=== PATIENT | female | born 1930 | race Hispanic/Latino ===

== ENCOUNTER 2017-01-22 11:35 | Emergency (ER) | payer MEDICARE ==
[2017-01-22 11:40] VITALS: BMI 26.5
[2017-01-22 12:44] LABS: BASO % 0.1 % (0.0-2.0); EOS # 2.4 K/uL (0.0-0.7); EOS % 13.1 % (0.0-4.0); HEMATOCRIT 31.2 % (34.0-47.0); LYMPH # 1.1 K/uL (1.0-4.3); LYMPH % 5.9 % (20.0-40.0); MEAN CELL VOLUME 64.5 fL (81.0-99.0); MEAN CORPUSCULAR HGB CONC 30.9 g/dL (33.0-37.0); MONO % 5.2 % (0.0-10.0); PLATELET COUNT 364 K/uL (130-400); RED CELL DISTRIBUTION WIDTH 15.2 % (11.5-14.5); WHITE BLOOD COUNT 18.7 K/uL (4.8-10.8)
[2017-01-22 13:09] LABS: CHLORIDE 103 mmol/L (98-107); POTASSIUM 4.1 mmol/L (3.6-5.2); SODIUM 140 mmol/L (132-148)
[2017-01-22 13:11] LABS: GFR AFRICAN-AMERICAN > 60
[2017-01-22 13:12] LABS: ALB/GLOB RATIO 1.3 (1.0-2.1); ALKALINE PHOSPHATASE 70 U/L (38-126); ALT/SGPT 63 U/L (9-52); AST/SGOT 205 U/L (14-36); BILIRUBIN,TOTAL 2.7 mg/dL (0.2-1.3); BLOOD UREA NITROGEN 33 mg/dL (7-17); CARBON DIOXIDE 21 mmol/L (22-30); GLUCOSE,RANDOM 133 mg/dL (65-105); TOTAL PROTEIN 8.2 g/dL (6.3-8.3)
[2017-01-22 13:13] LABS: CALCIUM 8.9 mg/dl (8.6-10.4)
--- NOTE | 2017-01-22 13:13 | C.PDOC ---
History Of Present Illness The patient, an 86 y/o female, presents to the ED accompanied by family for evaluation after sustaining a fall 2 days ago. As per family, patient fell at home and landed on her bilateral knees. Patient was unable to get up and began crawling which resulted in a rug burn on her bilateral buttocks. Patient resides in the same two-family home as her family, but lives on one of the floors alone. Her family states that patient had underwent a couple falls earlier this week and has bruising to her elbows bilaterally. Patient as per family is her baseline mental status. Patient denies LOC, head injury. - HPI Time Seen by Provider: 01/22/17 11:56 Chief Complaint (Nursing): Trauma History Per: Patient History/Exam Limitations: no limitations Onset/Duration Of Symptoms: Hrs Severity: Mild Recent travel outside of the [place]: No Additional History Per: Patient - Fall Fall:Prior To Injury: Tripped Past Medical History Reviewed: Historical Data, Nursing Documentation, Vital Signs Vital Signs: Last Vital Signs Temp 98.4 F 01/22/17 17:20 Pulse 84 01/22/17 17:20 Resp 18 01/22/17 17:20 BP 171/90 H 01/22/17 17:20 Pulse Ox 98 01/22/17 17:44 - Medical History PMH: Gall Bladder Disease, HTN Surgical History: No Surg Hx Family History: States: Unknown Family Hx - Social History Hx Alcohol Use: No Hx Substance Use: No - Immunization History Hx Tetanus Toxoid Vaccination: No Hx Influenza Vaccination: No Hx Pneumococcal Vaccination: No Review Of Systems Except As Marked, All Systems Reviewed And Found Negative. Constitutional: Negative for: Fever Genitourinary: Negative for: Dysuria Musculoskeletal: Positive for: Other (+ b/l knee pain ) Neurological: Negative for: Weakness, Dizziness Physical Exam - Physical Exam Appears: Non-toxic, No Acute Distress Skin: Warm, Dry, Ecchymosis (knees and elbows, bilaterally ), Other (+rug martinez to bilateral buttocks) Head: Atraumatic, Normacephalic, No Tenderness, No Swelling, No Abrasion, No Laceration Eye(s): bilateral: Normal Inspection, PERRL, EOMI Oral Mucosa: Moist Neck: Supple Chest: Symmetrical, No Deformity, No Tenderness Cardiovascular: Rhythm Regular, No Murmur Respiratory: Normal Breath Sounds, No Rales, No Rhonchi, No Wheezing Gastrointestinal/Abdominal: Soft, No Tenderness, No Guarding, No Rebound Back: Normal Inspection, No Vertebral Tenderness, No Paraspinal Tenderness Extremity: Normal ROM, Tenderness (b/l knees), Capillary Refill (less than 2 seconds ), No Deformity, No Swelling Pulses: Left Dorsalis Pedis: Normal, Right Dorsalis Pedis: Normal Neurological/Psych: Normal Speech, Normal Cognition, Normal Motor, Other (+ slightly confused, no focal deficits ) Gait: Unable To Assess ED Course And Treatment - Laboratory Results Result Diagrams: 01/22/17 12:40 01/22/17 12:40 Lab Interpretation: Abnormal ECG: Interpreted By Me ECG Rhythm: Sinus Rhythm ECG Interpretation: No Acute Changes Rate From EC O2 Sat by Pulse Oximetry: 98 Pulse Ox Interpretation: Normal - Other Rad No standard instances X-Ray: Viewed By Me Interpretation: FINDINGS: LIVER: Measures 18.7 cm in length. Normal echogenicity of the liver parenchyma. No mass. No intrahepatic bile duct dilatation. GALLBLADDER: Multiple gallstones are seen. Normal gallbladder wall thickening. COMMON BILE DUCT: Measures 4 mm. No stones. No dilatation. PANCREAS: Unremarkable as visualized. No mass. No ductal dilatation. RIGHT KIDNEY: Measures 9.1 x 4 x 4.4 cm in length. Normal echogenicity. No calculus, mass, or hydronephrosis. Small cyst is seen at the lower pole right kidney measures 1 centimeter. AORTA: No aneurysmal dilatation. IVC: Unremarkable. OTHER FINDINGS: None . IMPRESSION: Multiple gallstones without ultrasound evidence of acute cholecystitis. Otherwise no evidence of acute pathology in the right upper abdomen. knee XR X-Ray: Interpreted by Me, Viewed By Me, Read By Radiologist Interpretation: Accession No. : [id number]. Patient Name / ID : WAQAR SANTOS / [id number]. Exam Date : 01/22/2017 12:27:17 ( Approved ). Study Comment : Sex / Age : F / 86Y. Creator : DREW GREENBERG. Dictator : Stepan Benitez MD. Die Baker : Pharmacy Messenger : Stepan Benitez MD. Approver2 : Report Date : 01/22/2017 13:12:36. My Comment : . PROCEDURE: Bilateral Knee Radiographs. HISTORY: fall. COMPARISON: None. FINDINGS: BONES: Right Knee: Normal. No fracture. Left Knee: Normal. No fracture. JOINTS: Right Knee: Narrowed medial joint compartment consistent with osteoarthritis. . Mild marginal hypertrophy of lateral and patellofemoral compartments consistent with osteoarthritis as well. Left knee: Narrowed medial joint compartment consistent with osteoarthritis. . Mild marginal hypertrophy of lateral and patellofemoral compartments consistent with osteoarthritis as well. SOFT TISSUES: Right Knee: Normal. Left Knee: Normal. JOINT EFFUSION: Right Knee: None. Left Knee: None. OTHER FINDINGS: None. 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 No acute fracture. CXR X-Ray: Interpreted by Me, Viewed By Me, Read By Radiologist Interpretation: Accession No. : [id number]. Patient Name / ID : WAQAR SANTOS / [id number]. Exam Date : 01/22/2017 12:27:05 ( Approved ). Study Comment : Sex / Age : F / 86Y. Creator : DREW GREENBERG. Dictator : Stepan Benitez MD. Die Baker : Pharmacy Messenger : Stepan Benitez MD. Approver2 : Report Date : 01/22/2017 13:12:36. My Comment : . PROCEDURE: CHEST RADIOGRAPH, 1 VIEW. HISTORY: SOB. COMPARISON: None available. FINDINGS: LUNGS: Clear. PLEURA: No pneumothorax or pleural fluid seen. CARDIOVASCULAR : Normal. OSSEOUS STRUCTURES: No significant abnormalities. VISUALIZED UPPER ABDOMEN: Normal. OTHER FINDINGS: None. IMPRESSION: No active disease. - CT Scan/US No standard instances Other Rad Studies (CT/US): Interpreted By Me, Read By Radiologist CT/US Interpretation: FINDINGS: HEMORRHAGE: No intracranial hemorrhage. BRAIN : No mass effect or edema. Moderate the atrophy is noted. Moderate to extensive white matter changes are also noted suggestive but nonspecific for chronic microvascular ischemic disease. VENTRICLES: Unremarkable. No hydrocephalus. CALVARIUM: Unremarkable. PARANASAL SINUSES: Uijo-tt-evznumna mucosal thickening seen in the right sphenoid sinus. MASTOID AIR CELLS: Unremarkable as visualized. No inflammatory changes. OTHER FINDINGS: None. IMPRESSION: No evidence of acute or subacute intracranial hemorrhage. Moderate atrophy and moderate to extensive white matter changes suggestive but nonspecific for chronic microvascular ischemic disease. Scry-[id number]-[id number] right sphenoid sinus mucosal thickening. Progress Note: labs, CT Head, CXR, XR b/l knees, US Abdomen ordered and reviewed. Patient did not take her B/P meds today. Treated with keflex 500 mg PO and losartin 25 mg PO. On re-evaluation abdomen soft. Ambulating. Patient request discharge and refuses admission. will follow up with PMD for further evaluation Reassessment Condition: Improved Disposition Counseled Patient/Family Regarding: Studies Performed, Diagnosis, Need For Followup, Rx Given - Disposition Referrals: Deepak Vines MD [Medical Doctor] - Disposition: HOME/ ROUTINE Disposition Time: 17:00 Condition: STABLE Additional Instructions: Follow up with Dr Vines Return to ED if any increase symptoms Prescriptions: Cephalexin [cephalexin] 500 mg PO Q8 #21 cap Instructions: Knee Sprain (ED), Urinary Tract Infection in Women (ED), Fall Prevention for Older Adults (ED) - POA Present On Arrival: None - Clinical Impression Clinical Impression: Sprain, Contusion, UTI (urinary tract infection) - PA / EXPRESSIVE ART THERAPIST / Resident Statement MD/DO has reviewed & agrees with the documentation as recorded. - Scribe Statement The provider has reviewed the documentation as recorded by the Scribe (Tigist Blakely) All medical record entries made by the Scribe were at my direction and personally dictated by me. I have reviewed the chart and agree that the record accurately reflects my personal performance of the history, physical exam, medical decision making, and the department course for this patient. I have also personally directed, reviewed, and agree with the discharge instructions and disposition.
[2017-01-22 13:25] LABS: NEUTROPHIL 82 % (50-75); TOTAL CELLS COUNTED 100
[2017-01-22 13:27] LABS: LARGE PLATELETS PRESENT
--- NOTE | 2017-01-22 13:33 | CT ---
PROCEDURE: CT HEAD WITHOUT CONTRAST. HISTORY: R/O Bleed COMPARISON: None available. TECHNIQUE: Axial computed tomography images were obtained through the head/brain without intravenous contrast. Radiation dose: Total exam DLP = 869.49 mGy-cm. This CT exam was performed using one or more of the following dose reduction techniques: Automated exposure control, adjustment of the mA and/or kV according to patient size, and/or use of iterative reconstruction technique. FINDINGS: HEMORRHAGE: No intracranial hemorrhage. BRAIN: No mass effect or edema. Moderate the atrophy is noted. Moderate to extensive white matter changes are also noted suggestive but nonspecific for chronic microvascular ischemic disease. VENTRICLES: Unremarkable. No hydrocephalus. CALVARIUM: Unremarkable. PARANASAL SINUSES: Nanc-ev-zbhuhpsy mucosal thickening seen in the right sphenoid sinus. MASTOID AIR CELLS: Unremarkable as visualized. No inflammatory changes. OTHER FINDINGS: None. IMPRESSION: No evidence of acute or subacute intracranial hemorrhage. Moderate atrophy and moderate to extensive white matter changes suggestive but nonspecific for chronic microvascular ischemic disease. [id number] right sphenoid sinus mucosal thickening.
--- NOTE | 2017-01-22 14:18 | US ---
HISTORY: Pain COMPARISON: None. TECHNIQUE: Sonographic evaluation of the right upper quadrant of the abdomen. FINDINGS: LIVER: Measures 18.7 cm in length. Normal echogenicity of the liver parenchyma. No mass. No intrahepatic bile duct dilatation. GALLBLADDER: Multiple gallstones are seen. Normal gallbladder wall thickening. COMMON BILE DUCT: Measures 4 mm. No stones. No dilatation. PANCREAS: Unremarkable as visualized. No mass. No ductal dilatation. RIGHT KIDNEY: Measures 9.1 x 4 x 4.4 cm in length. Normal echogenicity. No calculus, mass, or hydronephrosis. Small cyst is seen at the lower pole right kidney measures 1 centimeter. AORTA: No aneurysmal dilatation. IVC: Unremarkable. OTHER FINDINGS: None . IMPRESSION: Multiple gallstones without ultrasound evidence of acute cholecystitis. Otherwise no evidence of acute pathology in the right upper abdomen.
--- NOTE | 2017-01-22 14:44 | RAD ---
PROCEDURE: CHEST RADIOGRAPH, 1 VIEW HISTORY: SOB COMPARISON: None available. FINDINGS: LUNGS: Clear. PLEURA: No pneumothorax or pleural fluid seen. CARDIOVASCULAR: Normal. OSSEOUS STRUCTURES: No significant abnormalities. VISUALIZED UPPER ABDOMEN: Normal. OTHER FINDINGS: None. IMPRESSION: No active disease.
--- NOTE | 2017-01-22 14:46 | RAD ---
PROCEDURE: Bilateral Knee Radiographs. HISTORY: fall COMPARISON: None. FINDINGS: BONES: Right Knee: Normal. No fracture. Left Knee: Normal. No fracture. JOINTS: Right Knee: Narrowed medial joint compartment consistent with osteoarthritis. . Mild marginal hypertrophy of lateral and patellofemoral compartments consistent with osteoarthritis as well. Left knee: Narrowed medial joint compartment consistent with osteoarthritis. . Mild marginal hypertrophy of lateral and patellofemoral compartments consistent with osteoarthritis as well. SOFT TISSUES: Right Knee: Normal. Left Knee: Normal. JOINT EFFUSION: Right Knee: None. Left Knee: None. OTHER FINDINGS: None. 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 No acute fracture.
[2017-01-22 15:09] LABS: RBC URINE 38 /hpf (0-3); URINE BACTERIA RARE (<OCC); URINE BILIRUBIN NEGATIVE (NEGATIVE); URINE BLOOD 3+ (NEGATIVE); URINE COLOR Yellow (YELLOW); URINE GLUCOSE (UA) NORMAL (Normal); URINE KETONE 1+ mg/dL (NEGATIVE); URINE LEUKOCYTE ESTERASE 3+ Leu/uL (Negative); URINE PROTEIN 2+ mg/dL (NEGATIVE); URINE UROBILINOGEN NORMAL mg/dL (0.2-1.0); WBC URINE 63 /hpf (0-5)
[2017-01-22] MEDS ORDERED: ceFAZolin IV 1 gm in Dextrose 1 GM/50 ML BAG IVPB ONE (15:51)
[2017-01-22] MEDS ORDERED: ceFAZolin 1 gm FROZEN Premix 1 GM/50 ML ML IVPB ONE (16:15)
[2017-01-22 17:20] VITALS: BP 171/90; PULSE 84; RESP 18; TEMP 98.4
[2017-01-22 17:48] VITALS: O2SAT 98
--- NOTE | 2017-01-23 16:46 | CARD ---
APPROVED REPORT EKG Measurement Heart [id number] MN [id number] [id number] <Conclusion> Normal sinus rhythm Prolonged QT Abnormal ECG
== END 2017-01-22 17:47 | disposition home or self-care (01) ==
LOC: C.ER 11:35
DX: S83.90XA Sprain of unspecified site of unspecified knee, initial encounter (principal); W18.30XA Fall on same level, unspecified, initial encounter; Z91.81 History of falling; Y92.019 Unspecified place in single-family (private) house as the place of occurrence of the external cause; N39.0 Urinary tract infection, site not specified
CPT/HCPCS: 70450; 71010; 73562; 76705; 80053; 81001; 85025; 93005; 96374; 99285; J0690

== ENCOUNTER 2017-07-01 18:31 | Inpatient (IN) | payer MEDICARE ==
[2017-07-01 18:31] VITALS: BMI 26.5
[2017-07-01] MEDS ORDERED: Sodium Chloride 0.9% 1,000 ML IV ONE (19:16)
--- NOTE | 2017-07-01 19:16 | C.PDOC ---
History Of Present Illness Patient presents to the ER after having a syncopal episode, SOB, and experiencing some weight loss. As per family member, patient has been having frequent falls and has had worsening dizziness over the last 3 weeks. Patient is currently in distress and denies fever, chills, Hx of falling, or feeling dizzy. Time Seen by Provider: 07/01/17 19:14 Chief Complaint (Nursing): Syncope History Per: Patient, Family History/Exam Limitations: no limitations Onset/Duration Of Symptoms: Days Current Symptoms Are (Timing): Still Present Number Of Syncopal Episodes: 1 Activity At Onset Of Symptoms: Had Just Stood up, Other (Not known) Associated Symptoms Preceding Syncopal Episode: No Predromal Symptoms (Sudden Onset) Seizure Or Post-ictal Symptoms: None Fall Associated With With Symptoms: No Severity: Moderate Pain Scale Rating Of: 4 Recent travel outside of the [place]: No Additional History Per: Family - Symptoms Of CVA Associated Symptoms: denies: Impaired Speech, Seizure Activity, New Vision Deficit(Left), New Vision Deficit(Right), Decreased Ability To Walk, New Confusion Recent Aspirin Use: No Current Coumadin Use?: No Recent Head Trauma: No Past Medical History Reviewed: Historical Data, Nursing Documentation, Vital Signs Vital Signs: Last Vital Signs Temp 97.7 F 07/01/17 18:37 Pulse 74 07/01/17 20:34 Resp 14 07/01/17 20:34 BP 154/77 H 07/01/17 20:34 Pulse Ox 100 07/01/17 21:00 - Medical History PMH: Gall Bladder Disease, HTN Surgical History: No Surg Hx Family History: States: No Known Family Hx - Social History Hx Alcohol Use: No Hx Substance Use: No - Immunization History Hx Tetanus Toxoid Vaccination: No Hx Influenza Vaccination: No Hx Pneumococcal Vaccination: No Review Of Systems Constitutional: Negative for: Fever, Chills Eyes: Negative for: Vision Change Cardiovascular: Negative for: Chest Pain Respiratory: Positive for: Shortness of Breath Gastrointestinal: Negative for: Nausea, Vomiting, Abdominal Pain Genitourinary: Negative for: Dysuria Musculoskeletal: Negative for: Back Pain Skin: Negative for: Rash Neurological: Positive for: Other (Syncope). Negative for: Dizziness Psych: Negative for: Anxiety Physical Exam - Physical Exam Appears: Non-toxic, No Acute Distress Skin: Warm, Dry Head: Normacephalic Eye(s): bilateral: Conjunctiva Pale Oral Mucosa: Moist Neck: Trachea Midline, Supple Chest: Symmetrical Cardiovascular: Rhythm Regular Respiratory: No Rales, No Rhonchi, No Wheezing Gastrointestinal/Abdominal: Soft, No Tenderness Back: No CVA Tenderness Extremity: Normal ROM Extremity: Bilateral: Atraumatic, Normal Color And Temperature Pulses: Left Dorsalis Pedis: Normal, Right Dorsalis Pedis: Normal Neurological/Psych: Oriented x3, Normal Speech, Normal Cognition Gait: Unsteady ED Course And Treatment - Laboratory Results Result Diagrams: 07/01/17 19:25 07/01/17 19:25 ECG: Interpreted By Me, Viewed By Me ECG Rhythm: Sinus Rhythm (75), Nonspecific Changes (tessy) O2 Sat by Pulse Oximetry: 100 (Room air) Pulse Ox Interpretation: Normal - Radiology CXR: Interpreted by Me, Viewed By Me CXR Interpretation: No: Infiltrates, Fracture, Pnemothorax Progress Note: EKG, blood work, CXR, urinalysis, and CT head ordered. IV fluids administered. Disposition Discussed With : Suzi Carter Comment: accepted the pt on her service and took over the care at 9:19 PM Doctor Will See Patient In The: Hospital Counseled Patient/Family Regarding: Studies Performed, Diagnosis - Disposition Disposition: HOSPITALIZED Disposition Time: 19:16 Condition: FAIR Forms: [facility] (Korean) - POA Present On Arrival: Poor Glycemic Control - Clinical Impression Clinical Impression: Dizziness, Syncope, UTI (urinary tract infection), Thrombocytosis - Scribe Statement The provider has reviewed the documentation as recorded by the Scribdusty Escudero All medical record entries made by the Raffyibe were at my direction and personally dictated by me. I have reviewed the chart and agree that the record accurately reflects my personal performance of the history, physical exam, medical decision making, and the department course for this patient. I have also personally directed, reviewed, and agree with the discharge instructions and disposition. Decision To Admit - Pt Status Changed To: Hospital Disposition Of: Inpatient - Admit Certification Admit to Inpatient:: After my assessment, the patient will require hospitalization for at least two midnights. This is because of the severity of symptoms shown, intensity of services needed, and/or the medical risk in this patient being treated as an outpatient. - InPatient: Physician Admission Certification: I certify that this patient requires 2 or more midnights of care for the following reason:: After my assessment, the patient will require hospitalization for at least two midnights. This is because of the severity of symptoms shown, intensity of services needed, and/or the medical risk in this patient being treated as an outpatient. - . Bed Request Type: Telemetry Admitting Physician: Suzi Carter Patient Diagnosis: Dizziness, Syncope, UTI (urinary tract infection), Thrombocytosis
[2017-07-01 19:30] LABS: BASO # 0.1 K/uL (0.0-0.2); BASO % 0.5 % (0.0-2.0); HEMATOCRIT 30.1 % (34.0-47.0); LYMPH # 1.2 K/uL (1.0-4.3); LYMPH % 7.1 % (20.0-40.0); MEAN CORPUSCULAR HGB CONC 30.7 g/dL (33.0-37.0); MEAN PLATELET VOLUME 7.4 fL (7.2-11.7); MONO # 0.9 K/uL (0.0-0.8); MONO % 5.5 % (0.0-10.0); PLATELET COUNT 508 K/uL (130-400); RED CELL DISTRIBUTION WIDTH 16.2 % (11.5-14.5); WHITE BLOOD COUNT 16.3 K/uL (4.8-10.8)
[2017-07-01 19:34] LABS: MEAN CELL VOLUME 61.8 fL (81.0-99.0)
[2017-07-01 19:36] LABS: CHLORIDE 103 mmol/L (98-107); INR 1.1
[2017-07-01 19:37] LABS: POTASSIUM 3.9 mmol/L (3.6-5.2); SODIUM 138 mmol/L (132-148)
[2017-07-01 19:39] LABS: ALB/GLOB RATIO 0.8 (1.0-2.1); ALKALINE PHOSPHATASE 91 U/L (38-126); AST/SGOT 25 U/L (14-36); BILIRUBIN,TOTAL 0.8 mg/dL (0.2-1.3); BLOOD UREA NITROGEN 27 mg/dL (7-17); CARBON DIOXIDE 23 mmol/L (22-30); GFR AFRICAN-AMERICAN > 60; TOTAL PROTEIN 8.5 g/dL (6.3-8.3)
[2017-07-01 19:40] LABS: ALT/SGPT 38 U/L (9-52); CALCIUM 9.5 mg/dl (8.6-10.4); GLUCOSE,RANDOM 111 mg/dL (65-105)
[2017-07-01 20:18] LABS: RBC URINE 43 /hpf (0-3); TRANSITIONAL EPITHIAL 1 /hpf (0-3); URINE BACTERIA MOD (<OCC); URINE BILIRUBIN NEGATIVE (NEGATIVE); URINE COLOR Amber (YELLOW); URINE GLUCOSE (UA) 1+ mg/dL (Normal); URINE HYALINE CAST >20 /lpf (0-2); URINE KETONE 1+ mg/dL (NEGATIVE); URINE PROTEIN 2+ mg/dL (NEGATIVE); WBC CLUMPS FEW /hpf; WBC URINE 13 /hpf (0-5)
[2017-07-01 20:20] LABS: URINE BLOOD 3+ (NEGATIVE); URINE LEUKOCYTE ESTERASE 1+ Leu/uL (Negative)
--- NOTE | 2017-07-01 20:22 | CT ---
EXAM: CT Head Without Intravenous Contrast EXAM DATE/TIME: 07/01/2017 7:16 PM CLINICAL HISTORY: 87 years old, female; Signs and symptoms; Altered mental status/memory loss and syncope and collapse TECHNIQUE: Axial computed tomography images of the head/brain without intravenous contrast. All CT scans at this facility use one or more dose reduction techniques, viz.: automated exposure control; ma/kV adjustment per patient size (including targeted exams where dose is matched to indication; i.e. head); or iterative reconstruction technique. Coronal and sagittal reformatted images were created and reviewed. COMPARISON: Prior images are not available for review. FINDINGS: Brain: There is dilatation of sulci gyri and ventricles. There is no midline shift. There is decreased attenuation in periventricular white matter. There are no focal masses. 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 There is smaller age indeterminate basal ganglia lacunar infarcts bilaterally. There are small calcifications in both basal ganglia. There are no focal hemorrhages. Russ-white differentiation is visualized. Ventricles: See above Bones: Cranial vault is intact. Soft tissues: unremarkable Sinuses: There is no acute sinusitis. Ears and mastoids: Middle ears and mastoids are unremarkable. Orbits: Orbital contents are unremarkable. IMPRESSION: Atrophy and small vessel disease; age indeterminate lacunar infarcts in the basal ganglia; no bleed
[2017-07-01] MEDS ORDERED: cefTRIAXone IV 1 gm in Dextros 50 ML IVPB ONE ×2 (20:27→20:39)
[2017-07-01 21:56] LABS: NEUTROPHIL 89 % (50-75); TOTAL CELLS COUNTED 100
[2017-07-02] MEDS ORDERED: Iohexol 240 (50 ml) PO ONE (00:15)
[2017-07-02] MEDS: Dextrose 5%/0.45% NS 1,000 ML IV SCH ×2 (00:30→18:11)
--- NOTE | 2017-07-02 03:03 | CT ---
EXAM: CT Abdomen and Pelvis Without Intravenous Contrast CLINICAL HISTORY: 87 years old, female; Pain; Abdominal pain; Additional info: Abdominal distention TECHNIQUE: Axial computed tomography images of the abdomen and pelvis without intravenous contrast. All CT scans at this facility use one or more dose reduction techniques, viz.: automated exposure control; ma/kV adjustment per patient size (including targeted exams where dose is matched to indication; i.e. head); or iterative reconstruction technique. Coronal and sagittal reformatted images were created and reviewed. COMPARISON: None. FINDINGS: Lower thorax: Bibasilar atelectasis, right greater than left. ABDOMEN: Liver: The liver is enlarged. Gallbladder and bile ducts: Layering stones within the gallbladder, which is otherwise unremarkable. No intra-extrahepatic biliary ductal dilation. Pancreas: Limited evaluation secondary to the lack of intravenous contrast. Spleen: A 6 cm rounded area of decreased attenuation is identified within the upper anterior margin of the spleen, statistically a splenic cyst. Adrenals: No acute findings. Kidneys and ureters: 8 mm nonobstructing stone within the upper pole of the left kidney. No obstructing stones. No hydronephrosis. PELVIS: Bladder: No acute findings. Reproductive: The uterus is absent. Appendix: The appendix is of normal caliber (series 2, image 62). ABDOMEN and PELVIS: Stomach and bowel: A nonobstructing bowel containing parastomal hernia within the left mid to lower abdomen. Mural thickening within the rectum. Peritoneum: No acute findings. Lymph nodes: Limited evaluation without intravenous contrast. Vasculature: No aortic aneurysm. Calcified atherosclerotic disease. Bones: No acute fracture. IMPRESSION: No obstructive uropathy. Nonobstructing left renal calculus. 6 cm splenic cyst. Parastomal hernia. Mural thickening within the rectum, for which direct visualization is recommended. Cholelithiasis.
--- NOTE | 2017-07-02 07:28 | RAD ---
PROCEDURE: CHEST RADIOGRAPH, 1 VIEW HISTORY: chest pain COMPARISON: Frontal chest radiograph 01/22/2017. FINDINGS: LUNGS: No acute infiltrate is appreciated bilaterally. PLEURA: No pneumothorax or pleural fluid seen. Potential left paratracheal lymph node calcification or granuloma noted or even thyroid calcification. CARDIOVASCULAR: Cardiomediastinal silhouette is stable. No pulmonary vascular derangement identified. OSSEOUS STRUCTURES: No significant abnormalities. VISUALIZED UPPER ABDOMEN: Normal. OTHER FINDINGS: None. IMPRESSION: No interval acute cardiopulmonary disease appreciated.
[2017-07-02] MEDS ORDERED: Enoxaparin 40 mg Syringe SC SCH (10:00)
--- NOTE | 2017-07-02 10:53 | CP.PCM.PN ---
Subjective - Date & Time of Evaluation Date of Evaluation: 07/02/17 - Subjective Subjective: H&P dictated #[id number] Objective - Vital Signs/Intake and Output Vital Signs (last 24 hours): Temp Pulse Resp BP Pulse Ox 97.7 F 64 20 147/77 98 07/02/17 07:30 07/02/17 07:30 07/02/17 07:30 07/02/17 07:30 07/02/17 07:30 Intake and Output: 07/02/17 07/02/17 06:59 18:59 Intake Total 720 Balance 720 - Medications Medications: Current Medications Dextrose/Sodium Chloride (Dextrose 5%/0.45% Ns 1000 Ml) 1,000 mls @ 60 mls/hr IV .[id number] Last Admin: 07/02/17 00:30 Dose: 60 mls/hr Losartan Potassium (Cozaar) 25 mg PO DAILY [facility] Pneumococcal Polyvalent Vaccine (Pneumovax 23 Vaccine) 0.5 ml IM .ONCE ONE Stop: 07/04/17 10:01 - Labs Labs: 07/01/17 19:25 07/01/17 19:25 PT 12.7 SECONDS (9.7-12.2) H 07/01/17 19:25 INR 1.1 07/01/17 19:25
[2017-07-02 11:17] LABS: BASO # 0.1 K/uL (0.0-0.2); BASO % 0.6 % (0.0-2.0); EOS # 0.1 K/uL (0.0-0.7); EOS % 0.6 % (0.0-4.0); HEMATOCRIT 25.8 % (34.0-47.0); LYMPH # 1.8 K/uL (1.0-4.3); LYMPH % 17.6 % (20.0-40.0); MEAN CELL VOLUME 62.5 fL (81.0-99.0); MEAN CORPUSCULAR HEMOGLOBIN 19.7 pg (27.0-31.0); MEAN CORPUSCULAR HGB CONC 31.5 g/dL (33.0-37.0); MEAN PLATELET VOLUME 7.6 fL (7.2-11.7); MONO # 0.7 K/uL (0.0-0.8); MONO % 6.8 % (0.0-10.0); NRBC % 0.1 % (0.0-2.0); RED CELL DISTRIBUTION WIDTH 15.7 % (11.5-14.5)
[2017-07-02 11:33] LABS: CHLORIDE 103 mmol/L (98-107); POTASSIUM 3.7 mmol/L (3.6-5.2); SODIUM 137 mmol/L (132-148)
[2017-07-02 11:34] LABS: IRON 45 ug/dL (37-170)
[2017-07-02 11:35] LABS: ALB/GLOB RATIO 0.7 (1.0-2.1); AST/SGOT 29 U/L (14-36); BILIRUBIN,TOTAL 0.6 mg/dL (0.2-1.3); BLOOD UREA NITROGEN 22 mg/dL (7-17); CARBON DIOXIDE 27 mmol/L (22-30); CHOLESTEROL 125 mg/dL (0-199); GFR AFRICAN-AMERICAN > 60; TOTAL PROTEIN 7.3 g/dL (6.3-8.3)
[2017-07-02 11:36] LABS: ALKALINE PHOSPHATASE 67 U/L (38-126); ALT/SGPT 28 U/L (9-52); CALCIUM 8.7 mg/dl (8.6-10.4); GLUCOSE,RANDOM 119 mg/dL (65-105)
--- NOTE | 2017-07-02 13:36 | CARD ---
APPROVED REPORT EKG Measurement Heart [id number] NM 134P69 [id number] <Conclusion> Normal sinus rhythm with sinus arrhythmia Right atrial enlargement Moderate voltage criteria for LVH, may be normal variant Borderline ECG
--- NOTE | 2017-07-02 20:53 | HP ---
CHIEF COMPLAINT: Frequent falls with worsening dizziness over the past few weeks. HISTORY OF PRESENT ILLNESS: The patient is an 87-year-old female with past medical history of hypertension, questionable gallbladder disease, status post abdominal surgery with colostomy, who has been following up with Dr. Laith Vines, primary care physician, for many years, who has seen the patient recently, and the patient's sister, Ina, spoke to Dr. Laith Vines regarding her medical condition and for possible rehab placement as per the patient's sister, but the patient had fall on Friday. Denied any loss of consciousness but claiming that she may have felt dizzy and her legs giving way, and she just lied down on her back, did not hit her head. After fall, she was crawling on the carpet, which scraped her skin of the buttocks on earlier episodes, and the patient was evaluated in the ED. She was brought into the emergency room for further evaluation of her recurrent falls and dizziness. Her sister claims that she refused to come to the hospital over the weekend after the fall claiming that she was not ready to come to the hospital. When I examined the patient, she is confused, but oriented to time, person, and able to answer to questions appropriately. Denied any headache, dizziness. Denied any chest pain, shortness of breath, or wheezing. Denied any nausea, vomiting, abdominal pain, diarrhea or constipation. Denied any urinary complaints. Denied any leg pains or leg cramps. She claims that her legs were giving a way, and she has been unsteady on her feet. She uses a cane at home. PAST MEDICAL HISTORY: As described; hypertension, questionable gallbladder surgery. PAST SURGICAL HISTORY: Colostomy with colostomy bag in place. FAMILY HISTORY: Nothing contributory to the present illness. PERSONAL HISTORY: She is single, living alone. Her sister lives upstairs, who is in her 70s and taking care of the patient. SOCIAL HISTORY: Denies smoking, alcohol, or drug abuse. ALLERGIES: NO KNOWN DRUG ALLERGIES. MEDICATIONS: Include valsartan. REVIEW OF SYSTEMS: As described in history of present illness. All other systems reviewed and were negative. PHYSICAL EXAMINATION: GENERAL: Elderly female, lying in bed, in no acute distress. VITAL SIGNS: Blood pressure 147/77, pulse 64, respirations 20, temperature 97.7 degrees Fahrenheit, and O2 sats 98% on room air. HEENT: Pupils are equal, round and reacting to light and accommodation. Extraocular muscles are intact. No icterus. Conjunctivae pallor present. No oral thrush. No pharyngeal congestion. NECK: Supple. No JVD. LUNGS: Bilateral vesicular breath sounds. No wheezing. No rhonchi. CARDIOVASCULAR: S1 and S2 present, regular. ABDOMEN: Soft. Bowel sounds are present. Colostomy bag in place; there is hernia at the colostomy site. CRANIAL NERVE SYSTEM: Alert, awake, and oriented x2. No focal deficits noted. EXTREMITIES: No edema. Palpable peripheral pulses. LABORATORY DATA: WBC 6.3, hemoglobin 9.2, hematocrit 30.1, and platelets 508. PT 12.7, INR 1.1. Sodium 138, potassium 3.9, chloride 103, bicarbonate 23, BUN 27, creatinine 0.7, glucose 111, and calcium 9.5. Cardiac enzymes x1 negative. ProBNP 1140, total protein 8.5, albumin 3.8. UA; specific gravity 1.020, protein 2+, glucose 1+, ketones 1+, blood 3+, leukocyte esterase 1+, wbc 13, rbc 43, hyaline casts more than 20. Chest x-ray negative for any infiltrate. EKG, normal sinus rhythm, LVH. CT head, multiple age indeterminate lacunar infarcts in the basal ganglia, no bleeds, atrophy and small vessel disease. CT of the abdomen and pelvis, no obstructive uropathy, nonobstructing left renal calculus, 6 cm splenic cyst, parastomal hernia, mural thickening within the rectum for which the is recommended. ASSESSMENT: Elderly female with history of hypertension, status post colostomy with parastomal hernia, admitted for worsening dizziness and worsening recurrent falls and for a possible subacute rehab placement. PLAN: The patient is being admitted to the telemetry. We will check echocardiogram. We will check carotid Doppler. We will do neurological checks. We will request Neurology evaluation and Cardiology evaluation. We will request Physical Therapy. Continue with her home medication. I discussed with case management for a possible subacute rehab placement. The patient received Rocephin in the ED. We will continue with Rocephin 1 g IV daily. Pending urine culture results. We will check TSH, RPR, B12. We will add further recommendation as her clinical course progresses. Suzi Carter MD [facility] # [id number]
--- NOTE | 2017-07-02 21:03 | CON ---
CARDIOLOGY CONSULTATION REQUESTING PHYSICIAN: Dr. Carter. HISTORY OF PRESENT ILLNESS: An 87-year-old female was brought in with a history of frequent falls, diffuse atherosclerosis and hypertension. For last 2 weeks, she has been feeling weak, not eating well, had both near syncope and frequent dizzy spells. She has a history of hypertension and probably osteoporosis. She is Diovan 40 mg p.o. one a day at home, vitamin D. REVIEW OF SYSTEMS: GENERAL: No fever, denies any chills, poor appetite. EYES: Poor vision, especially in the left eye, she has been seeing by Dr. Kirkland. EARS: She has a hearing loss. NECK: No swollen glands, no enlarged thyroid. RESPIRATORY: Negative for cough or hemoptysis. CARDIAC: Denies any chest pains, occasional dyspnea on exertion although lately she has not been ambulating much, history of hypertension. GASTROINTESTINAL: Had a colostomy done many years ago for benign reason. GENITOURINARY: Negative for dysuria but she has had a frequency. 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 PERIPHERAL VASCULAR SYSTEM: No claudication, no varicose vein. NEUROLOGICAL: Dizziness, one episode of syncope, no tremors, no seizures. ALLERGIES: DENIED. FAMILY HISTORY: Positive for hypertension. PERSONAL HISTORY: Does not smoke, does not drink, no diet restriction, she is single, no exercise, she is retired. PAST MEDICAL HISTORY: History of colostomy for benign reason many years ago. History of hypertension. Otherwise unremarkable. PHYSICAL EXAMINATION: GENERAL: Shows elderly white female who is conscious, alert, thin built, in no acute distress. She has lost about 20 pounds over past 3 to 4 months. VITAL SIGNS: She is 5.2, weighs is 92 pounds. Blood pressure is 166/82, heart rate of 81, respiratory rate of 14 and temperature of 97.7, O2 sat is 97% on room air. HEENT: Head is normocephalic. EYES: No pallor, no icterus. NECK: Supple. MOUTH: Absence of all teeth. LUNGS: Clear to auscultation. HEART: PMI is normal; S1, S2 is distant but normal, no definite gallops, early systolic ejection murmur grade I/ to II/ in the mitral and aortic area. ABDOMEN: Soft, nontender. Colostomy is noted. EXTREMITIES: No cyanosis, clubbing or edema. Distal pulses are intact. NEUROLOGICALLY: She is awake, alert, knows my name. LABORATORY DATA: BUN was elevated to 27, creatinine is 0.7. UTI is noted. Hemoglobin is 8.1, electrolytes were unremarkable. TSH is normal, B12 is normal, cholesterol is 125. ASSESSMENT: An 87-year-old female with a history of dehydration. Weight loss. Urinary tract infection, possibly sepsis. RECOMMENDATIONS: Continuing medical therapy. We will review the echocardiogram that has been ordered. We will agree with losartan for now. We will follow as needed. I thank you kindly. Laith Vines MD
--- NOTE | 2017-07-03 10:59 | CP.PCM.PN ---
Subjective - Date & Time of Evaluation Date of Evaluation: 07/03/17 Time of Evaluation: 11:15 - Subjective Subjective: Progress note dictated #[id number] Objective - Vital Signs/Intake and Output Vital Signs (last 24 hours): Temp Pulse Resp BP Pulse Ox 98.3 F 93 H 20 167/83 H 98 07/03/17 07:25 07/03/17 07:25 07/03/17 07:25 07/03/17 07:25 07/03/17 07:25 Intake and Output: 07/03/17 07/03/17 06:59 18:59 Intake Total 200 Output Total 250 Balance -50 - Medications Medications: Current Medications Aspirin (Aspirin Chewable) 81 mg PO DAILY [facility] Last Admin: 07/03/17 09:49 Dose: 81 mg Donepezil HCl (Aricept) 5 mg PO HS YAN Dextrose/Sodium Chloride (Dextrose 5%/0.45% Ns 1000 Ml) 1,000 mls @ 60 mls/hr IV .[id number] [facility] Last Admin: 07/02/17 18:11 Dose: 60 mls/hr Ceftriaxone Sodium (Rocephin Iv 1 Gm Duplex) 50 mls @ 100 mls/hr IVPB Q24H YAN Losartan Potassium (Cozaar) 25 mg PO DAILY [facility] Last Admin: 07/03/17 09:49 Dose: 25 mg Pneumococcal Polyvalent Vaccine (Pneumovax 23 Vaccine) 0.5 ml IM .ONCE ONE Stop: 07/04/17 10:01 - Labs Labs: 07/02/17 11:12 07/02/17 11:12 PT 12.7 SECONDS (9.7-12.2) H 07/01/17 19:25 INR 1.1 07/01/17 19:25
--- NOTE | 2017-07-03 11:34 | CON ---
DATE: 07/03/2017 LOCATION: Patient's room number 653, bed B. REASON FOR THE CONSULTATION: Change in mental status and recent fall. ATTENDING PHYSICIAN: Suzi Carter MD CHIEF COMPLAINT: The patient was brought into [facility] with history of recent fall at home and poor ambulation proceeding to this event. From neurological point of view, I was called into evaluate her for further management. HISTORY OF PRESENTING ILLNESS: Ms. Jennifer Granados is an 87-year-old thinly built, right-handed female presenting with fall on her back while she was ambulating, lost her balance due to the dizziness. From the fall, she hurt her head; however, no documented loss of consciousness or involuntary movement, bowel or bladder incontinence, or biting tongue. From the history and documentation, no similar episodes happened in the past; however, she has been having problem in ambulation. PAST MEDICAL HISTORY: Hypertension, gallbladder disease, colostomy bag placed due to her recent surgery for GI problem, which is not known at present. PERSONAL HISTORY: She lives alone. Her sister lives in the . No history of smoking or alcohol use. ALLERGIES: NO KNOWN ALLERGIES. REVIEW OF SYSTEMS: A 16-point system been reviewed from neurological point of view, she does have frequent fall and losing her balance. PHYSICAL EXAMINATION: GENERAL: The patient is arousable on calling her first name. VITAL SIGNS: Blood pressure 155/69, mean arterial pressure of 97, respiratory rate 16, temperature 99.0, and pulse rate 74 and regular. NECK: Supple. No carotid bruit. HEART: Sounds . NEUROLOGIC: The patient is apprehended. Does not want to be examined. Does not want to be disturbed. This was too early for her to answer any questions. With limited examination, she respond to visual threat. Pupils reactive to light. Extraocular movement, rolling conjugate gaze noted. No facial asymmetry. Hearing seems to be intact. Answering the questions not appropriately. She is little confused. She does not known where she is. MOTOR EXAMINATION: Tone increased on both upper and lower extremities. She moves all 4 extremities. Deep tendon reflexes are trace. Plantars are equivocally response. DEEP TENDON REFLEXES: Absent. COORDINATION: The patient refuse to cooperate with my commands. GAIT: Deferred at this time. WORKUP: CT of the head reviewed by me, which showed no acute pathology except small vessel disease and lacunar infarct, which is old in basal ganglia. EKG; sinus rhythm. LABORATORY DATA: Blood workup: WBC 10.0, hemoglobin 8.1, hematocrit 25.8, and platelets 431. Sodium 137, potassium 3.7, chloride 103, bicarbonate 27, BUN 22, and creatinine is 0.7. GFR more than 60, glucose 119, and calcium 8.7. Cholesterol 125, LDL 82, HDL 26, B12 is 667, and TSH 1.10. CONCLUSION: Ms. Jennifer Granados is presenting with: 1. Bilateral cerebral dysfunction just probably secondary to senile dementia of Alzheimer's type superimposed with metabolic versus toxic causes. 2. The patient also has significant evidence of anemia, which has to be corrected. 3. The patient can be placed on Aricept, which the dose can be slowly titrated as she tolerates. 4. MRI of the brain is recommended to rule out any ischemic process in posterior fossa. 5. Electroencephalogram to rule out any electrographic seizures. 6. The patient got to be out of bed and physical therapy should be instituted. 7. The patient will be followed closely with you. Piter Curry MD
--- NOTE | 2017-07-03 16:17 | VASCLAB ---
PROCEDURE: HISTORY: dizziness COMPARISON: None available. TECHNIQUE: Grayscale and duplex Doppler evaluation of the cervical carotid and vertebral arteries were performed. The common carotid, carotid bifurcations and cervical Internal Carotid Artery (ICA) and proximal External Carotid Artery (ECA) were evaluated. The vertebral arteries were evaluated for gross patency and flow direction. Report prepared by Poncho Barker, BS, RVT FINDINGS: RIGHT CAROTID ARTERIES: 1. Common Carotid Artery: No significant focal plaque formation of the right common carotid artery. Maximum Peak Systolic velocity: 80 cm/sec: End-diastolic velocity 11 cm/sec. 2. Carotid Bifurcation: Calcific plaque formation. Maximum Peak Systolic velocity: 90 cm/sec: End-diastolic velocity 11 cm/sec. 3. Internal Carotid Artery: Minimal plaque formation of the right proximal ICA which does not result in hemodynamically significant stenosis. Plaque description: Calcific 3.1. Proximal Segment: Peak systolic velocity 66 cm/sec: End-diastolic velocity 12 cm/sec - % stenosis 0-15% 3.2. Middle Segment: Peak systolic velocity 51 cm/sec: End-diastolic velocity 9 cm/sec - % stenosis 0-15% 3.3. Distal Segment: Peak systolic velocity 64 cm/sec: End-diastolic velocity 14 cm/sec - % stenosis 0-15% 4. External Carotid Artery: No significant focal plaque formation. Peak systolic velocity 140 cm/sec 5. ICA/CCA Ratio: 1.1 LEFT CAROTID ARTERIES: 1. Common Carotid Artery: No significant focal plaque formation of the left common carotid artery. Maximum Peak Systolic velocity: 96 cm/sec: End-diastolic velocity 9 cm/sec. 2. Carotid Bifurcation: plaque formation. Maximum Peak Systolic velocity: 76 cm/sec: End-diastolic velocity 9 cm/sec. 3. Internal Carotid Artery: Plaque description: 3.1. Proximal Segment: Peak systolic velocity 133 cm/sec: End-diastolic velocity 16 cm/sec - % stenosis 0-15% 3.2. Middle Segment: Peak systolic velocity 62 cm/sec: End-diastolic velocity 10 cm/sec - % stenosis 0-15% 3.3. Distal Segment: Peak systolic velocity 127 cm/sec: End-diastolic velocity 24 cm/sec - % stenosis 0-15% 4. External Carotid Artery: No significant focal plaque formation. Peak systolic velocity 110 cm/sec 5. ICA/CCA Ratio: 1.4 VERTEBRAL ARTERIES: 1. Right Vertebral Artery: The right vertebral artery flow direction is antegrade. 2. Left Vertebral Artery: The left vertebral artery flow direction is antegrade. OTHER FINDINGS: 1. Right Brachial Blood pressure: 136 mmHg. 2. Left Brachial Blood pressure: 136 mmHg. IMPRESSION: RIGHT: Duplex scan does not suggest hemodynamically significant stenosis of the right extracranial carotid arteries. LEFT: Duplex scan does not suggest hemodynamically significant stenosis of the left extracranial carotid arteries.
--- NOTE | 2017-07-03 18:11 | PN ---
DATE: 07/03/2017 SUBJECTIVE: The patient was seen and examined, and EEG. The patient is feeling better. Denies any complaints. Denies any chest pain, shortness of breath or wheezing. Denies any nausea, vomiting, abdominal pain, diarrhea or constipation. Denies any urinary complaints. PHYSICAL EXAMINATION GENERAL: Elderly female, lying in bed, in no acute distress. VITAL SIGNS: Blood pressure 167/83, pulse 93, respirations 20, temperature 98.3 degrees Fahrenheit, O2 saturation 98% on room air. HEENT: Pupils equal, round, reacting to light and accommodation. Extraocular muscles intact. No icterus. No pallor. No oral thrush. No pharyngeal congestion. NECK: Supple. No JVD. LUNGS: Bilateral vesicular breath sounds. No wheezing. No rhonchi. CARDIOVASCULAR SYSTEM: S1 and S2 present, regular. ABDOMEN: Soft, nontender. Bowel sounds present. No guarding. No rigidity. No rebound tenderness noted. CENTRAL NERVOUS SYSTEM: Alert, awake, oriented x3. No focal deficits noted. EXTREMITIES: No edema. Palpable peripheral pulses. MEDICATIONS: Include aspirin 81 mg daily, Rocephin 1 g daily, IV fluids D5 half normal saline at 60 mL an hour, Aricept 5 mg p.o. at bedtime, Cozaar 25 mg p.o. daily. LABORATORY DATA: Urine culture negative for any growth. Blood cultures x2 negative. Carotid Doppler negative. MRI is ordered, pending. Echo results pending. EEG pending. ASSESSMENT AND PLAN: An elderly female with history of hypertension, status post colostomy, admitted for recurrent falls, dementia, possible urinary tract infection. Blood pressure is still high. We will increase Cozaar to 50 mg daily. Continue with Aricept, aspirin. We will discontinue IV fluids. Follow up with echo and EEG results. Neurology and Cardiology consults appreciated. Repeat labs in the morning. Follow up with [facility] for possible subacute rehab placement. Suzi Carter MD
[2017-07-03 20:05] LABS: IRON 28 ug/dL (37-170)
[2017-07-03] MEDS: cefTRIAXone IV 1 gm in Dextros 50 ML IVPB SCH (20:25)
[2017-07-04 06:47] LABS: BASO # 0.1 K/uL (0.0-0.2); BASO % 0.4 % (0.0-2.0); EOS # 0.1 K/uL (0.0-0.7); HEMATOCRIT 25.7 % (34.0-47.0); LYMPH # 1.9 K/uL (1.0-4.3); LYMPH % 16.1 % (20.0-40.0); MEAN CELL VOLUME 62.4 fL (81.0-99.0); MEAN CORPUSCULAR HEMOGLOBIN 19.2 pg (27.0-31.0); MEAN CORPUSCULAR HGB CONC 30.8 g/dL (33.0-37.0); MEAN PLATELET VOLUME 7.7 fL (7.2-11.7); MONO # 0.9 K/uL (0.0-0.8); MONO % 7.7 % (0.0-10.0); RED CELL DISTRIBUTION WIDTH 15.8 % (11.5-14.5); WHITE BLOOD COUNT 12.1 K/uL (4.8-10.8)
[2017-07-04 07:02] LABS: CHLORIDE 105 mmol/L (98-107)
[2017-07-04 07:03] LABS: POTASSIUM 3.6 mmol/L (3.6-5.2); SODIUM 139 mmol/L (132-148)
[2017-07-04 07:05] LABS: GFR AFRICAN-AMERICAN > 60
[2017-07-04 07:06] LABS: BLOOD UREA NITROGEN 15 mg/dL (7-17); CALCIUM 8.6 mg/dl (8.6-10.4); CARBON DIOXIDE 23 mmol/L (22-30); GLUCOSE,RANDOM 96 mg/dL (65-105)
--- NOTE | 2017-07-04 07:28 | PN ---
DATE OF EVALUATION: 07/04/2017 NEUROLOGICAL PROBLEM: Senile dementia of Alzheimer's type superimposed with metabolic encephalopathy. PHYSICAL EXAMINATION: VITAL SIGNS: Blood pressure 171/81, mean arterial pressure of 111, respiratory rate 18, temperature 97.9 degrees Fahrenheit. NEUROLOGICAL: The patient is sleepy, not arousable, respond to pain stimuli on both sides. The patient did have electroencephalogram yesterday being reviewed by me, does not show any electrographic seizures. Activities are normal for her age. The patient is recommended to have to correct her anemia. The patient should be get out of the bed and physical therapy should be started. The patient also requested to have MRI of the brain, which probably done today. Piter Curry MD
[2017-07-04] MEDS ORDERED: Pneumococcal 23-Valent Vaccine IM ONE (10:00)
[2017-07-04] MEDS ORDERED: Influenza Vaccine 60 mcg/0.5 mL SYR (4YR UP) IM ONE (10:00)
--- NOTE | 2017-07-04 10:30 | MRI ---
PROCEDURE: MRI BRAIN WITHOUT CONTRAST HISTORY: stroke Vs mass COMPARISON: None. TECHNIQUE: Multiplanar, multisequence MR images of the brain were obtained without intravenous contrast enhancement. FINDINGS: Study is limited in diagnostic power due to motion artifacts throughout many of the sequences submitted. HEMORRHAGE: None DWI: No evidence of an acute or early subacute infarction. BRAIN PARENCHYMA: Moderate diffuse cerebral atrophy chronic microangiopathy are identified this patient including the ventricular system which is somewhat dilated but not a context of the amount of peripheral atrophy. An empty sella is noted. VENTRICLES: Unremarkable. No hydrocephalus. CRANIUM: Unremarkable. ORBITS: Grossly unremarkable. PARANASAL SINUSES/MASTOIDS: Clear VASCULAR SYSTEM: Skull base flow voids intact. OTHER FINDINGS: None. IMPRESSION: Grossly motion artifact examination limits interpretation. No definite acute or subacute brain infarction is identified and its age-related neuro degenerative changes are appreciated. Is difficult to evaluate for small potential masses or even moderate-size masses in this patient repeat imaging is advised if the patient is able to maintain positioning in the magnet without motion.
[2017-07-04] MEDS: Ferric Sodium Gluconat Complex 62.5 mg/5 ml Vial IVPB SCH (10:55)
--- NOTE | 2017-07-04 11:17 | CP.PCM.PN ---
Subjective - Date & Time of Evaluation Date of Evaluation: 07/04/17 Time of Evaluation: 11:16 - Subjective Subjective: ok Objective - Vital Signs/Intake and Output Vital Signs (last 24 hours): Temp Pulse Resp BP Pulse Ox 98.1 F 67 20 186/83 H 98 07/04/17 07:25 07/04/17 07:47 07/04/17 07:25 07/04/17 07:25 07/04/17 07:25 - Medications Medications: Current Medications Aspirin (Aspirin Chewable) 81 mg PO DAILY [facility] Last Admin: 07/04/17 10:50 Dose: 81 mg Donepezil HCl (Aricept) 5 mg PO HS REPLACED BY [facility] Last Admin: 07/03/17 21:59 Dose: 5 mg Ferric Sodium Gluconate Complex (Ferrlecit) 125 mg IVPB DAILY REPLACED BY [facility] Stop: 07/09/17 10:16 Last Admin: 07/04/17 10:55 Dose: 125 mg Ceftriaxone Sodium (Rocephin Iv 1 Gm Duplex) 50 mls @ 100 mls/hr IVPB Q24H REPLACED BY [facility] Last Admin: 07/03/17 20:25 Dose: 100 mls/hr Losartan Potassium (Cozaar) 50 mg PO DAILY REPLACED BY [facility] Last Admin: 07/04/17 10:50 Dose: 50 mg - Labs Labs: 07/04/17 06:37 07/04/17 06:37 PT 12.7 SECONDS (9.7-12.2) H 07/01/17 19:25 INR 1.1 07/01/17 19:25 - Constitutional Appears: No Acute Distress - Eye Exam Eye Exam: Normal appearance - Respiratory Exam Respiratory Exam: Clear to Ausculation Bilateral - Cardiovascular Exam Cardiovascular Exam: REGULAR RHYTHM - GI/Abdominal Exam GI & Abdominal Exam: Soft - Neurological Exam Neurological Exam: Alert, Oriented x3 Assessment and Plan - Assessment and Plan (Free Text) Assessment: dehydration.bp ok. needs rehab or detention.
--- NOTE | 2017-07-04 11:30 | CARD ---
APPROVED REPORT EXAM: Two-dimensional and M-mode echocardiogram with Doppler and color Doppler. Other Information Quality : GoodRhythm : NSR INDICATION Dizziness and Vertigo Syncope UTI, FOR LV FUNCTION 2D DIMENSIONS IVSd1.0 (0.7-1.1cm)LVDd3.6 (3.9-5.9cm) PWd1.2 (0.7-1.1cm)LVDs2.5 (2.5-4.0cm) FS (%) 32.2 %LVEF (%)61.3 (>50%) M-Mode DIMENSIONS Left Atrium (MM)4.10 (2.5-4.0cm)Aortic Root3.01 (2.2-3.7cm) Aortic Cusp Exc.2.50 (1.5-2.0cm) Mitral Valve MV E Vrixymdn66.6cm/sMV A Ydkwycwn221.9cm/sE/A ratio0.6 TDI E/Lateral E'0.0E/Medial E'0.0 Tricuspid Valve TR Peak Tzbvqagx093tp/sTR Peak Gr.24eaWmQIQR98mgXk LEFT VENTRICLE The left ventricle is normal size. There is mild concentric left ventricular hypertrophy. The left ventricular function is normal. The left ventricular ejection fraction is within the normal range. There is normal LV segmental wall motion. Tissue Doppler imaging reveals mild left ventricular diastolic dysfunction. No left ventricle thrombus noted on this study. There is no ventricular septal defect visualized. There is no left ventricular aneurysm. There is no mass noted in the left ventricle. RIGHT VENTRICLE The right ventricle is normal size. There is normal right ventricular wall thickness. The right ventricular systolic function is normal. ATRIA The left atrium is mildly dilated. The right atrium size is normal. The interatrial septum is intact with no evidence for an atrial septal defect. AORTIC VALVE The aortic valve is calcified but opens well. No aortic regurgitation is present. There is no aortic valvular stenosis. There is no aortic valvular vegetation. MITRAL VALVE Mitral annular calcification is mild to moderate. There is no mitral valve stenosis. There is no mitral valve regurgitation noted. TRICUSPID VALVE The tricuspid valve is normal in structure. There is no tricuspid valve regurgitation noted. PULMONIC VALVE The pulmonary valve is normal in structure. There is no pulmonic valvular regurgitation. GREAT VESSELS The aortic root is normal in size. The ascending aorta is normal in size. The pulmonary artery is normal. The IVC is normal in size and collapses >50% with inspiration. PERICARDIAL EFFUSION There is no pericardial effusion. <Conclusion> There is mild concentric left ventricular hypertrophy. Tissue Doppler imaging reveals mild left ventricular diastolic dysfunction. The left atrium is mildly dilated.lv ef is 60%.
--- NOTE | 2017-07-04 11:55 | CP.PCM.PN ---
Subjective - Date & Time of Evaluation Date of Evaluation: 07/04/17 Time of Evaluation: 11:45 - Subjective Subjective: Progress note dictated #[id number] Objective - Vital Signs/Intake and Output Vital Signs (last 24 hours): Temp Pulse Resp BP Pulse Ox 98.1 F 67 20 186/83 H 98 07/04/17 07:25 07/04/17 07:47 07/04/17 07:25 07/04/17 07:25 07/04/17 07:25 - Medications Medications: Current Medications Aspirin (Aspirin Chewable) 81 mg PO DAILY [facility] Last Admin: 07/04/17 10:50 Dose: 81 mg Donepezil HCl (Aricept) 5 mg PO HS [facility] Last Admin: 07/03/17 21:59 Dose: 5 mg Ferric Sodium Gluconate Complex (Ferrlecit) 125 mg IVPB DAILY [facility] Stop: 07/09/17 10:16 Last Admin: 07/04/17 10:55 Dose: 125 mg Ceftriaxone Sodium (Rocephin Iv 1 Gm Duplex) 50 mls @ 100 mls/hr IVPB Q24H [facility] Last Admin: 07/03/17 20:25 Dose: 100 mls/hr Losartan Potassium (Cozaar) 50 mg PO DAILY [facility] Last Admin: 07/04/17 10:50 Dose: 50 mg - Labs Labs: 07/04/17 06:37 07/04/17 06:37 PT 12.7 SECONDS (9.7-12.2) H 07/01/17 19:25 INR 1.1 07/01/17 19:25
--- NOTE | 2017-07-04 12:06 | CARD ---
APPROVED REPORT EKG Measurement Heart [id number] <Conclusion> Sinus rhythm with premature atrial complexes Prolonged QT Abnormal ECG
--- NOTE | 2017-07-04 16:19 | PN ---
DATE: 07/04/2017 SUBJECTIVE: The patient is seen and examined at bedside. The patient is feeling better. Denies any complaints. PHYSICAL EXAMINATION: GENERAL: Elderly female, in no acute distress. VITAL SIGNS: Blood pressure 186/83, pulse 82, respirations 20, temperature 98.1 degrees Fahrenheit, O2 saturation 98% on room air. HEENT: Pupils equal, round, reacting to light and accommodation. Extraocular muscles intact. No icterus. Positive pallor. No oral thrush. No pharyngeal congestion. NECK: Supple. No JVD. LUNGS: Bilateral vesicular breath sounds. No wheezing. No rhonchi. CARDIOVASCULAR SYSTEM: S1 and S2 present, regular. ABDOMEN: Soft, nontender. Bowel sounds present. No guarding. No rigidity. No rebound tenderness noted. CENTRAL NERVOUS SYSTEM: Alert, awake, oriented x2. No focal deficits noted. EXTREMITIES: No edema. MEDICATIONS: Include aspirin 81 mg daily, Rocephin 1 g daily, Aricept 5 mg p.o. at bedtime, Ferrlecit 12.5 mg IV piggyback, Cozaar 50 mg daily. LABORATORY DATA: Done from this morning, WBC 12.1, hemoglobin 7.9, hematocrit 25.7, platelets 411. Sodium 139, potassium 3.6, chloride 104, bicarbonate 23, BUN 15, creatinine 0.7, glucose 96, calcium 8.6. Iron saturation 12, ferritin 831, iron 28, TIBC 197. Cholesterol 125, LDL 82, triglyceride 152. RPR nonreactive. Urine culture negative growth. Blood culture negative growth. ASSESSMENT AND PLAN: An elderly female with history of hypertension, colostomy, admitted for recurrent falls, urinary tract infection, anemia of iron deficiency. Blood pressure is still high. We will start amlodipine 5 mg p.o. daily. Continue with Rocephin. We will give IV Ferrlecit for iron deficiency. We will follow up with MRI result and echo result. If negative and cleared by neurology and cardiology, we will plan discharging the patient to subacute rehab when bed available. Suzi Carter MD
[2017-07-04] MEDS: cefTRIAXone IV 1 gm in Dextros 50 ML IVPB SCH (19:17)
--- NOTE | 2017-07-05 09:06 | CP.PCM.PN ---
Subjective - Date & Time of Evaluation Date of Evaluation: 07/05/17 Time of Evaluation: 08:30 - Subjective Subjective: Discharge summary dictated #[id number] Objective - Vital Signs/Intake and Output Vital Signs (last 24 hours): Temp Pulse Resp BP Pulse Ox 97.8 F 74 18 154/85 H 97 07/05/17 07:50 07/05/17 07:50 07/05/17 07:50 07/05/17 07:50 07/05/17 07:50 Intake and Output: 07/05/17 07/05/17 06:59 18:59 Intake Total 300 Balance 300 - Medications Medications: Current Medications Amlodipine Besylate (Norvasc) 5 mg PO DAILY [facility] Last Admin: 07/04/17 17:04 Dose: 5 mg Aspirin (Aspirin Chewable) 81 mg PO DAILY [facility] Last Admin: 07/04/17 10:50 Dose: 81 mg Donepezil HCl (Aricept) 5 mg PO HS [facility] Last Admin: 07/04/17 21:03 Dose: 5 mg Ferric Sodium Gluconate Complex (Ferrlecit) 125 mg IVPB DAILY [facility] Stop: 07/09/17 10:16 Last Admin: 07/04/17 10:55 Dose: 125 mg Ceftriaxone Sodium (Rocephin Iv 1 Gm Duplex) 50 mls @ 100 mls/hr IVPB Q24H [facility] Last Admin: 07/04/17 19:17 Dose: 100 mls/hr Losartan Potassium (Cozaar) 50 mg PO DAILY [facility] Last Admin: 07/04/17 10:50 Dose: 50 mg - Labs Labs: 07/04/17 06:37 07/04/17 06:37 PT 12.7 SECONDS (9.7-12.2) H 07/01/17 19:25 INR 1.1 07/01/17 19:25
[2017-07-05] MEDS: Ferric Sodium Gluconat Complex 62.5 mg/5 ml Vial IVPB SCH (09:44)
[2017-07-05 11:17] LABS: BASO # 0.1 K/uL (0.0-0.2); BASO % 0.5 % (0.0-2.0); EOS # 0.1 K/uL (0.0-0.7); EOS % 0.4 % (0.0-4.0); HEMATOCRIT 25.8 % (34.0-47.0); LYMPH # 1.9 K/uL (1.0-4.3); LYMPH % 11.9 % (20.0-40.0); MEAN CELL VOLUME 62.1 fL (81.0-99.0); MEAN CORPUSCULAR HEMOGLOBIN 19.7 pg (27.0-31.0); MEAN CORPUSCULAR HGB CONC 31.7 g/dL (33.0-37.0); MEAN PLATELET VOLUME 7.8 fL (7.2-11.7); MONO # 0.9 K/uL (0.0-0.8); MONO % 5.5 % (0.0-10.0); RED CELL DISTRIBUTION WIDTH 16.4 % (11.5-14.5)
[2017-07-05 16:16] VITALS: BP 136/77; RESP 20; TEMP 98.4; O2SAT 95
[2017-07-05 16:53] VITALS: PULSE 85
--- NOTE | 2017-07-06 15:03 | DS ---
Date of transfer to [facility] 07/05/2017. DISCHARGE DIAGNOSES: Hypertension, status post colostomy, recurrent falls, debility, urinary tract infection, iron deficiency anemia. HISTORY OF PRESENT ILLNESS: Ms. Granados is an 87-year-old female with past medical history of hypertension, status post colostomy, admitted for recurrent falls and the patient is being worked up for syncope and dizziness. Today, the patient is feeling much better. Denies any headache or dizziness. Denies any chest pain, shortness of breath, or wheezing. Denies any nausea, vomiting, abdominal pain, diarrhea or constipation. Denies any urinary complaints. Denies any leg pains or leg cramps. All other systems reviewed and was found to be negative. PHYSICAL EXAMINATION: GENERAL: Elderly female, lying in bed in no acute distress. VITAL SIGNS: Blood pressure 136/77, pulse 83, respirations 20, temperature 98.4 degrees Fahrenheit and O2 saturation is 95% on room air. HEENT: Pupils are equal, round, and reacting to light and accommodation. Extraocular muscles intact. No icterus. Positive pallor. No oral thrush. No pharyngeal congestion. NECK: Supple. No JVD. LUNGS: Bilateral vesicular breath sounds. No wheezing. No rhonchi. CVS: S1 and S2 present, regular. ABDOMEN: Soft and nontender. Bowel sounds present. No guarding. No rigidity. No rebound tenderness noted. WOOD FILLER: Alert, awake, and oriented x3. No focal deficits noted. LABORATORY DATA: WBC 16.0, hemoglobin 8.2, hematocrit 25.8, platelets 412. Sodium 139, potassium 3.6, chloride 105, bicarbonate 23, BUN 15, creatinine 0.7, glucose 96, calcium 8.6, iron is 28, iron saturation is 14, TIBC 197, ferritin 831, B12 667, TSH 1.1, triglycerides 152, cholesterol 125, LDL 82, HDL 26. UA: Specific gravity 1.020, pH 5.0, protein 2+, glucose 1+,blood 3+, nitrite negative, bilirubin negative, leukocyte esterase 1+, wbc's 13, rbc's 43, RPR nonreactive. X-ray is negative. CT scan of the abdomen and pelvis negative for any acute pathology other than parastomal hernia. Carotid Doppler negative. Echo consistent with EF about 60%. MRI negative for any acute changes. HOSPITAL COURSE: The patient was admitted to telemetry for possible dizziness, syncope. The patient had all the neurologic workup done, which was negative. The patient was started on donepezil. Her blood pressures were running high. Losartan increased to 50 mg daily and Norvasc is being added. The patient was given Rocephin for presumed UTI. Cultures remained negative. The patient was evaluated by Cardiology. As the patient is otherwise hemodynamically stable and the patient was found to be anemic, the patient received IV Ferrlecit two doses. The patient's family agreed for subacute rehabilitation. environmental services floor tech made arrangements for her to be transferred to [facility] for further physical therapy. As the patient is otherwise hemodynamically stable, we will plan transferring the patient to Subacute Rehab for further physical therapy. The patient's family agrees with the decision and the patient is cleared by Neurology and Cardiology. CONDITION UPON DISCHARGE: The patient is alert, awake and oriented x3 and hemodynamically stable at the time of discharge. DISCHARGE MEDICATIONS: Amlodipine 5 mg daily, aspirin 81 mg daily, Aricept 10 mg daily, Feosol 325 mg p.o. daily, losartan 50 mg p.o. daily. ACTIVITY: As tolerated. DIET: Heart healthy diet. DISCHARGE INSTRUCTIONS: Followup with PMD, followup with Cardiology, followup with Neurology. Suzi Carter MD
--- NOTE | 2017-07-07 10:27 | EEG ---
DATE: 07/03/2017 This is a 16-channel electroencephalogram of awake and confused adult. During the study, photic stimulation was performed. Hyperventilation was not performed. The resting electroencephalogram consists of 30-40 microvolt alpha activity seen at parietal and occipital leads. Anteriorly, fast activity superimposed with 2 to 3 Hz of delta activity seen at frontal and central leads. Intermittent movement artifact contaminated the background rhythm. The photic stimulation did not evoke driving response noted at 2 to 20 Hz. IMPRESSION: This is a normal electroencephalogram of awake and a drowsy adult. During the study, neither electroencephalographic paroxysmal activities nor focal slowing noted. Piter Curry MD
== END 2017-07-05 19:30 | DRG 640 ==
LOC: C.ER 18:31 → C.9E 21:18 → C.6T 22:02
PROVIDERS: ADMIT Internal Medicine; ATTEND Internal Medicine
DX: E86.0 Dehydration (principal); G93.41 Metabolic encephalopathy; N39.0 Urinary tract infection, site not specified; G30.1 Alzheimer's disease with late onset; F02.80 Dementia in other diseases classified elsewhere, unspecified severity, without behavioral disturbance, psychotic disturbance, mood disturbance, and anxiety; R55 Syncope and collapse; D50.9 Iron deficiency anemia, unspecified; K43.5 Parastomal hernia without obstruction or gangrene; D75.89 Other specified diseases of blood and blood-forming organs; R29.6 Repeated falls; I10 Essential (primary) hypertension; M81.0 Age-related osteoporosis without current pathological fracture; Z91.81 History of falling; Z93.3 Colostomy status

== ENCOUNTER 2017-11-06 21:48 | Inpatient (IN) | payer MEDICARE ==
[2017-11-06 21:48] VITALS: BMI 26.5
--- NOTE | 2017-11-06 22:59 | C.PDOC ---
History Of Present Illness The patient is sent to the ED by senior living for evaluation after some dark blood was found in her colostomy bag earlier today. Patient is unsure why she was brought to the ED and denies fever, chills, nausea, vomiting, chest pain, abdominal pain, or any trauma. Time Seen by Provider: 11/06/17 22:57 Chief Complaint (Nursing): GI Problem History Per: Patient History/Exam Limitations: no limitations Onset/Duration Of Symptoms: Hrs Current Symptoms Are (Timing): Still Present Number Of Bleeding Episodes: Unknown Amount of Blood Loss: Small Severity: None Pain Scale Rating Of: 0 Quality Of Discomfort: denies: "Pain" Associated Symptoms: Other (dark blood in colostomy bag ). denies: Nausea, Vomiting Modifying Factors: None Recent travel outside of the [place]: No Additional History Per: Senior Living Past Medical History Reviewed: Historical Data, Nursing Documentation, Vital Signs Vital Signs: Last Vital Signs Temp 98 F 11/06/17 21:57 Pulse 72 11/07/17 00:53 Resp 19 11/07/17 00:53 BP 135/76 11/07/17 00:53 Pulse Ox 100 11/07/17 00:53 - Medical History PMH: Gall Bladder Disease, HTN Denies: Chronic Kidney Disease Surgical History: No Surg Hx Family History: States: Unknown Family Hx - Social History Hx Alcohol Use: No Hx Substance Use: No - Immunization History Hx Tetanus Toxoid Vaccination: No Hx Influenza Vaccination: No Hx Pneumococcal Vaccination: No Review Of Systems Constitutional: Negative for: Fever, Chills Cardiovascular: Negative for: Chest Pain, Palpitations Respiratory: Negative for: Cough, Shortness of Breath Gastrointestinal: Positive for: Other (blood in colostomy bag ). Negative for: Nausea, Vomiting, Abdominal Pain, Diarrhea Skin: Negative for: Rash, Lesions, Jaundice, Bruising Neurological: Negative for: Weakness, Numbness Psych: Negative for: Anxiety Physical Exam - Physical Exam Appears: Non-toxic, No Acute Distress Skin: Warm, Dry Head: Normacephalic Eye(s): bilateral: Normal Inspection Oral Mucosa: Moist Neck: Supple Chest: Symmetrical, No Deformity, No Tenderness Cardiovascular: Rhythm Regular, No Murmur Respiratory: No Rales, No Rhonchi, No Wheezing Gastrointestinal/Abdominal: Bowel Sounds (present ), Soft, No Tenderness, No Guarding, No Rebound, Other (colostomy noted to left lower quadrant, with approximately 70-100cc of dark blood in pouch) Back: No CVA Tenderness Extremity: Normal ROM, Capillary Refill (less than 2 seconds ) Extremity: Bilateral: Atraumatic Pulses: Left Dorsalis Pedis: Normal, Right Dorsalis Pedis: Normal Neurological/Psych: Oriented x3 Gait: Unable To Assess ED Course And Treatment - Laboratory Results Result Diagrams: 11/06/17 23:31 11/06/17 23:31 ECG: Interpreted By Me, Viewed By Me ECG Rhythm: Sinus Rhythm (81), Nonspecific Changes O2 Sat by Pulse Oximetry: 100 (on RA) Pulse Ox Interpretation: Normal Progress Note: Bloodwork, urinalysis, CXR, EKG ordered and reviewed. Protonix IV and IV Fluids administered. Disposition Discussed With : Suzi Carter Comment: accepted the pt on her service and took over the care at 1:08 AM Doctor Will See Patient In The: Hospital Counseled Patient/Family Regarding: Studies Performed, Diagnosis - Disposition Disposition: HOSPITALIZED Disposition Time: 22:58 Condition: FAIR Forms: [employer] (Bengali) - POA Present On Arrival: Poor Glycemic Control - Clinical Impression Clinical Impression: Gastrointestinal hemorrhage - Scribe Statement The provider has reviewed the documentation as recorded by the Scribe (Tigist Blakely) Provider Attestation: All medical record entries made by the Scribe were at my direction and personally dictated by me. I have reviewed the chart and agree that the record accurately reflects my personal performance of the history, physical exam, medical decision making, and the department course for this patient. I have also personally directed, reviewed, and agree with the discharge instructions and disposition. Decision To Admit - Pt Status Changed To: Hospital Disposition Of: Inpatient - Admit Certification Admit to Inpatient:: After my assessment, the patient will require hospitalization for at least two midnights. This is because of the severity of symptoms shown, intensity of services needed, and/or the medical risk in this patient being treated as an outpatient. - InPatient: Physician Admission Certification: I certify that this patient requires 2 or more midnights of care for the following reason:: After my assessment, the patient will require hospitalization for at least two midnights. This is because of the severity of symptoms shown, intensity of services needed, and/or the medical risk in this patient being treated as an outpatient. - . Bed Request Type: Telemetry Admitting Physician: Suzi Carter Patient Diagnosis: Gastrointestinal hemorrhage
[2017-11-06] MEDS ORDERED: Pantoprazole 80 MG in Sodium Chloride 0.9% 100 ML IV STA (23:02)
[2017-11-06] MEDS ORDERED: Sodium Chloride 0.9% 1,000 ML IV ONE (23:02)
[2017-11-06] MEDS ORDERED: Sodium Chloride 0.9% 1,000 ML ONE (23:16)
[2017-11-06 23:34] LABS: BASO # 0.1 K/uL (0.0-0.2); BASO % 0.7 % (0.0-2.0); EOS # 0.1 K/uL (0.0-0.7); EOS % 0.8 % (0.0-4.0); HEMOGLOBIN 8.9 g/dL (11.0-16.0); LYMPH # 2.1 K/uL (1.0-4.3); LYMPH % 16.4 % (20.0-40.0); MEAN CELL VOLUME 61.3 fL (81.0-99.0); MEAN CORPUSCULAR HEMOGLOBIN 19.6 pg (27.0-31.0); MEAN CORPUSCULAR HGB CONC 31.9 g/dL (33.0-37.0); MEAN PLATELET VOLUME 9.1 fL (7.2-11.7); MONO # 1.1 K/uL (0.0-0.8); NEUT # 9.3 K/uL (1.8-7.0); NEUT % 73.1 % (50.0-75.0); NRBC % 0.2 % (0.0-2.0); RBC 4.56 Mil/uL (3.80-5.20); RED CELL DISTRIBUTION WIDTH 18.1 % (11.5-14.5); WHITE BLOOD COUNT 12.7 K/uL (4.8-10.8)
[2017-11-06 23:42] LABS: PROTHROMBIN TIME 11.6 SECONDS (9.7-12.2)
[2017-11-06 23:46] LABS: ALB/GLOB RATIO 0.9 (1.0-2.1); ALBUMIN 3.6 g/dL (3.5-5.0); ALT/SGPT 24 U/L (9-52); AST/SGOT 22 U/L (14-36); BLOOD UREA NITROGEN 33 mg/dL (7-17); CALCIUM 9.9 mg/dl (8.6-10.4); GFR AFRICAN-AMERICAN > 60; GFR NON-AFRICAN AMERICAN > 60
[2017-11-07 01:07] LABS: SQUAMOUS EPITHIAL < 1 /hpf (0-5); URINE BILIRUBIN NEGATIVE (NEGATIVE); URINE BLOOD 2+ (NEGATIVE); URINE CALCIUM OXALATE CRYSTALS RARE /hpf (<OCC); URINE CLARITY Hazy (Clear); URINE COLOR Yellow (YELLOW); URINE GLUCOSE (UA) NORMAL (Normal); URINE LEUKOCYTE ESTERASE NEG Leu/uL (Negative); URINE NITRATE NEGATIVE (NEGATIVE); URINE PROTEIN NEGATIVE (NEGATIVE); URINE UROBILINOGEN NORMAL mg/dL (0.2-1.0)
[2017-11-07] MEDS ORDERED: Magnesium Hydroxide Susp 30 ml UD PO PRN (01:34)
[2017-11-07] MEDS ORDERED: Alum-Mag Hydrox-Simethicone Susp (30 mL) PO PRN (01:34)
[2017-11-07] MEDS ORDERED: Dextrose 5%/0.9% NS 1,000 ML IV ONE (02:25)
[2017-11-07] MEDS: Dextrose 5%/0.9% NS 1,000 ML IV SCH ×2 (02:30→19:25)
[2017-11-07 06:34] LABS: BASO # 0.1 K/uL (0.0-0.2); BASO % 1.1 % (0.0-2.0); EOS # 0.1 K/uL (0.0-0.7); EOS % 0.9 % (0.0-4.0); HEMOGLOBIN 7.7 g/dL (11.0-16.0); LYMPH # 2.2 K/uL (1.0-4.3); LYMPH % 19.5 % (20.0-40.0); MEAN CELL VOLUME 61.4 fL (81.0-99.0); MEAN CORPUSCULAR HEMOGLOBIN 19.8 pg (27.0-31.0); MEAN CORPUSCULAR HGB CONC 32.2 g/dL (33.0-37.0); MONO # 0.8 K/uL (0.0-0.8); MONO % 7.3 % (0.0-10.0); NEUT # 8.1 K/uL (1.8-7.0); NEUT % 71.2 % (50.0-75.0); NRBC % 0.1 % (0.0-2.0); RBC 3.89 Mil/uL (3.80-5.20); WHITE BLOOD COUNT 11.3 K/uL (4.8-10.8)
[2017-11-07 06:51] LABS: ALB/GLOB RATIO 0.8 (1.0-2.1); ALBUMIN 3.1 g/dL (3.5-5.0); ALT/SGPT 24 U/L (9-52); AST/SGOT 19 U/L (14-36); BLOOD UREA NITROGEN 27 mg/dL (7-17); CALCIUM 8.9 mg/dl (8.6-10.4); GFR AFRICAN-AMERICAN > 60; GFR NON-AFRICAN AMERICAN > 60
--- NOTE | 2017-11-07 08:58 | RAD ---
PROCEDURE: CHEST RADIOGRAPH, 1 VIEW HISTORY: GI Bleeding COMPARISON: None available. FINDINGS: LUNGS: Clear. PLEURA: No pneumothorax or pleural fluid seen. CARDIOVASCULAR: Normal. OSSEOUS STRUCTURES: No significant abnormalities. VISUALIZED UPPER ABDOMEN: Normal. OTHER FINDINGS: None. IMPRESSION: No active disease.
--- NOTE | 2017-11-07 10:30 | CP.PCM.PN ---
Subjective - Date & Time of Evaluation Date of Evaluation: 11/07/17 Time of Evaluation: 10:30 - Subjective Subjective: H&P dictated #[id number] Objective - Vital Signs/Intake and Output Vital Signs (last 24 hours): Temp Pulse Resp BP Pulse Ox 98 F 88 18 116/58 L 100 11/06/17 21:57 11/07/17 04:37 11/07/17 04:37 11/07/17 10:19 11/07/17 04:37 - Medications Medications: Current Medications Acetaminophen (Tylenol 325mg Tab) 650 mg PO Q4H PRN PRN Reason: mild pain (1-3) Acetaminophen (Tylenol 325mg Tab) 650 mg PO Q4H PRN PRN Reason: Temp >100.4 Al Hydrox/Mg Hydrox/Simethicone (Maalox Plus 30 Ml) 30 ml PO Q4H PRN PRN Reason: heartburn & indigestion Amlodipine Besylate (Norvasc) 5 mg PO DAILY [facility] Last Admin: 11/07/17 10:27 Dose: 5 mg Donepezil HCl (Aricept) 5 mg PO HS [facility] Epoetin Jorje (Procrit) 10,000 unit SC TUTH [facility] Ferrous Sulfate (Feosol) 325 mg PO DAILY [facility] Last Admin: 11/07/17 10:27 Dose: 325 mg Dextrose/Sodium Chloride (Dextrose 5%/0.9% Ns 1000 Ml) 1,000 mls @ 75 mls/hr IV .[id number] [facility] Last Admin: 11/07/17 02:30 Dose: 75 mls/hr Losartan Potassium (Cozaar) 50 mg PO DAILY [facility] Last Admin: 11/07/17 10:27 Dose: 50 mg Magnesium Hydroxide (Milk Of Magnesia) 30 ml PO Q24H PRN PRN Reason: no BM after 3 days - Labs Labs: 11/07/17 06:18 11/07/17 06:18 PT 11.6 SECONDS (9.7-12.2) 11/06/17 23:31 INR 1.0 11/06/17 23:31 APTT 29 SECONDS (21-34) 11/06/17 23:31
[2017-11-07] MEDS ORDERED: Propofol 10 mg/ml Inj (20 ML) ONE (12:27)
--- NOTE | 2017-11-07 13:38 | CARD ---
APPROVED REPORT EKG Measurement Heart [id number] <Conclusion> Normal sinus rhythm Normal ECG
[2017-11-07 14:41] LABS: BASO # 0.1 K/uL (0.0-0.2); BASO % 1.2 % (0.0-2.0); EOS # 0.1 K/uL (0.0-0.7); EOS % 0.5 % (0.0-4.0); HEMOGLOBIN 7.3 g/dL (11.0-16.0); LYMPH # 1.9 K/uL (1.0-4.3); LYMPH % 16.5 % (20.0-40.0); MEAN CELL VOLUME 61.4 fL (81.0-99.0); MEAN CORPUSCULAR HEMOGLOBIN 19.1 pg (27.0-31.0); MEAN CORPUSCULAR HGB CONC 31.2 g/dL (33.0-37.0); MONO # 0.8 K/uL (0.0-0.8); MONO % 7.1 % (0.0-10.0); NEUT # 8.6 K/uL (1.8-7.0); NEUT % 74.7 % (50.0-75.0); NRBC % 0.1 % (0.0-2.0); RBC 3.84 Mil/uL (3.80-5.20); RED CELL DISTRIBUTION WIDTH 18.1 % (11.5-14.5); WHITE BLOOD COUNT 11.5 K/uL (4.8-10.8)
[2017-11-07 19:34] LABS: SQUAMOUS EPITHIAL < 1 /hpf (0-5); URINE BACTERIA OCC (<OCC); URINE BILIRUBIN NEGATIVE (NEGATIVE); URINE BLOOD 3+ (NEGATIVE); URINE CLARITY Clear (Clear); URINE COLOR Yellow (YELLOW); URINE GLUCOSE (UA) NORMAL (Normal); URINE LEUKOCYTE ESTERASE 2+ Leu/uL (Negative); URINE NITRATE NEGATIVE (NEGATIVE); URINE PROTEIN NEGATIVE (NEGATIVE); URINE UROBILINOGEN NORMAL mg/dL (0.2-1.0)
[2017-11-07 23:21] LABS: BASO # 0.1 K/uL (0.0-0.2); BASO % 0.6 % (0.0-2.0); EOS # 0.1 K/uL (0.0-0.7); EOS % 0.6 % (0.0-4.0); HEMOGLOBIN 9.2 g/dL (11.0-16.0); LYMPH # 2.2 K/uL (1.0-4.3); LYMPH % 15.9 % (20.0-40.0); MEAN CORPUSCULAR HEMOGLOBIN 21.5 pg (27.0-31.0); MEAN CORPUSCULAR HGB CONC 32.7 g/dL (33.0-37.0); MEAN PLATELET VOLUME 9.1 fL (7.2-11.7); MONO % 7.2 % (0.0-10.0); NEUT # 10.5 K/uL (1.8-7.0); NEUT % 75.7 % (50.0-75.0); NRBC % 0.1 % (0.0-2.0); RBC 4.3 Mil/uL (3.80-5.20); RED CELL DISTRIBUTION WIDTH 23.6 % (11.5-14.5)
[2017-11-07 23:24] LABS: MEAN CELL VOLUME 65.8 fL (81.0-99.0)
--- NOTE | 2017-11-08 01:34 | HP ---
CHIEF COMPLAINT: The patient was found to be having blood clots coming out of her colostomy bag and patient was sent to ED for further evaluation. HISTORY OF PRESENT ILLNESS: Ms. Granados is an 87-year-old female with past medical history of dementia, hypertension, anemia, status post gall bladder surgery, underwent colostomy many years ago with parastomal hernia admitted to the hospital from intermediate as intermediate personnel noted blood clots and oozing from the colostomy site. In the emergency room, the patient was found to be having some amount of blood around colostomy and patient is being admitted for further evaluation and management. When I examined, the patient is feeling better, denied any further bleeding or oozing. As patient has dementia, not able to get detailed history, but all the history obtained from the patient's sister and other family members and from the prior records. She denied any headache, dizziness. Denies any chest pain, shortness of breath, wheezing. Denies any nausea, vomiting, abdominal pain, diarrhea or constipation. Denies any urinary complaints. Denies any other leg pains or joint pains. PAST MEDICAL HISTORY: Hypertension, dementia, anemia, gallbladder surgery, parastomal hernia. PAST SURGICAL HISTORY: Colostomy and multiple abdominal surgeries. FAMILY HISTORY: Nothing contributory to the present illness. PERSONAL HISTORY: She is living in [facility]. SOCIAL HISTORY: Denies smoking, alcohol or drug abuse. ALLERGIES: NO KNOWN DRUG ALLERGIES. CURRENT MEDICATIONS: Include aspirin 81 mg daily, amlodipine 5 mg daily, Losartan 50 mg daily, Feosol 325 mg daily, Aricept 5 mg p.o. at bedtime. REVIEW OF SYSTEMS: As described in history of present illness. All other systems reviewed. PHYSICAL EXAMINATION: GENERAL: Elderly female, lying in bed in no acute distress. VITAL SIGNS: Blood pressure 120/65, pulse 66, respirations 20, temperature 97.8 degrees Fahrenheit, O2 saturations 99% on nasal cannula. HEENT: Pupils equal, round and reacting to light and accommodation. Extraocular muscles intact. No icterus. Positive pallor. No oral thrush. Dry mucous membranes. No pharyngeal congestion. NECK: Supple. No JVD. No thyromegaly. CHEST: Moving equally bilaterally on respirations. LUNGS: Bilateral vesicular breath sounds. No wheezing. No rhonchi. CVS: S1, S2 present. Regular. ABDOMEN: Soft. Nontender. Bowel sounds are present. No guarding. No rigidity. No rebound tenderness noted. Colostomy site clean without any oozing or blood clots noted. CHOCOLATE FINISHER OPERATOR: Alert, awake, oriented x 1. No focal deficits noted. EXTREMITIES: No edema. Palpable peripheral pulses. LABORATORY DATA: Labs done from ED; WBC 12.7, hemoglobin 8.9, repeat hemoglobin was 7.3, hematocrit 28, platelets 426. PT 11.6, INR 1.0, PTT 29, sodium 138, potassium 4.3, chloride 101, bicarbonate 28, BUN 33, creatinine 0.6, glucose 112, calcium 9.9, total bilirubin 0.6, AST 22, ALT 24, alkaline phosphatase 81, total proteins 7.6, albumin 3.6. UA; specific gravity 1.023, pH 5, blood 2+, rbc 176. Stool occult blood positive. Repeat hemoglobin is 7.3 this afternoon. Status post EGD consistent with small hiatus hernia, two nonbleeding gastric ulcers with no stigmata of bleeding, the largest lesion was 3 mm in largest dimension, biopsies were taken, acute gastritis, erythematosus mucosa in the prepyloric region of the stomach. Chest x-ray negative. EKG normal sinus rhythm at 81 beats per minute. ASSESSMENT AND PLAN: Elderly intermediate resident with history of hypertension, dementia, multiple abdominal surgeries, status post colostomy with parastomal hernia, anemia iron deficiency, admitted for bleeding from colostomy site, underwent EGD with H and H decreasing. 1. Acute upper gastrointestinal bleeding with decreasing H and H. EGD consistent with acute gastritis, small hiatal hernia, gastric ulcers with clean base, erythematous mucosa in the prepyloric region. 2. Hypertension. 3. Dementia. 4. Anemia. PLAN: The patient is being admitted to telemetry. We will do serial of CBCs. The patient is receiving IV fluids. After EGD patient was started on Carafate and Zofran as needed by GI. We will transfuse 1 unit of PRBC, repeat CBC after transfusion, monitor closely, transfuse as needed. Blood pressure is stable. Continue with her current home medications of Norvasc and Losartan. Continue with Feosol. Continue with Aricept. Discussed with for possible colonoscopy as outpatient. Follow up with pathology results. Repeat labs in a.m. We will monitor patient closely and add further recommendations as her clinical course progresses. Suzi Carter MD
[2017-11-08] MEDS: Dextrose 5%/0.9% NS 1,000 ML IV SCH ×2 (05:40→17:49)
--- NOTE | 2017-11-08 07:07 | CON ---
DATE: 11/06/2017 REASON FOR CONSULTATION: I was called for GI consultation by the admitting MD. The patient was seen and fully examined on 11/06/2017 as requested by the admitting medical staff. The entire chart is reviewed including, but not limited to the most recent lab and radiology study results, current and the previous medication list, current and the previous medical events, allergy to medication list, as well as all the available current and the previous medical records. Case discussed with the staff at length. HISTORY OF PRESENT ILLNESS: This is an 87-year-old female who was admitted to the hospital through the emergency room with reported dark bloody material found in a previously inserted colostomy tube with generalized weakness and malaise but no reported chills, fevers or palpitation. It has to be mentioned that most of the information was obtained from the medical record, medical staff and nursing staff as well as nursing notes. PAST MEDICAL HISTORY: Including but not limited, as reported hypertension, gallbladder dysfunction, previously done colostomy tube of unclear etiology, believed to be secondary to diverticulosis. FAMILY HISTORY: Unknown. SOCIAL HISTORY: No reported recent history of cigarette smoking or alcohol intake. CURRENT MEDICATIONS: Medication lists were reviewed. LABORATORY DATA: After being admitted to the hospital, the patient initially was found to have low hemoglobin of 8.9 with hematocrit 29.0 with leukocytosis of 12.7 and thrombocytosis of 426 with increased BUN of 73 but low creatinine of 0.6 indicative of dehydration. Blood glucose level 112. PHYSICAL EXAMINATION: GENERAL: This is an 87-year-old female, appeared to be mildly pale. VITAL SIGNS: Afebrile with pulse of 70, respiratory rate of 20 to 22, and blood pressure of 140/74. HEENT: Showed pale dry oral mucoid membrane, nonicteric sclerae. LYMPH NODES: No lymphadenitis or lymphadenopathy. LUNGS: Scattered mild crepitations with few rhonchi bilaterally. Breathing sounds are present. HEART: Positive S1 and S2. ABDOMEN: Soft with slight distension. The previously inserted colostomy tube is in place which contains guaiac positive. No mass or organomegaly. No rebound tenderness or guarding. EXTREMITIES: Without significant clubbing, cyanosis or edema. NEUROLOGIC: No reported new neurological deficits, sensory or motor. Peripheral pulses are present but weak bilaterally. IMPRESSION: 1. Gastrointestinal bleeding, upper verses lower. 2. Rule out occult gastrointestinal malignancy. 3. Status post colostomy of unclear etiology by history. 4. Known history of hypertension and reported history of gallbladder dysfunction. SUGGESTIONS: 1. Agree with your plan. 2. Blood transfusion as needed to keep hemoglobin around 10 gm percent. 3. Correct any coagulopathy as needed. 4. Cancer markers including CEA and CA-125. 5. Proton pump inhibitors IV. 6. Endoscopic evaluation of upper GI tract when the patient is more stable clinically. 7. Sectional abdominal and pelvic CAT scan. 8. The patient may need colonoscopy through the colostomy if the bleeding recurrent. 9. Further recommendation to follow. Thank you for letting me participate in your patient's case management. Jessica Navas MD
--- NOTE | 2017-11-08 09:37 | CP.PCM.PN ---
Subjective - Date & Time of Evaluation Date of Evaluation: 11/08/17 Time of Evaluation: 09:40 - Subjective Subjective: Progress note dictated #[id number] Objective - Vital Signs/Intake and Output Vital Signs (last 24 hours): Temp Pulse Resp BP Pulse Ox 98.1 F 73 20 161/73 H 97 11/07/17 23:15 11/07/17 23:20 11/07/17 23:15 11/07/17 23:15 11/07/17 23:15 - Medications Medications: Current Medications Acetaminophen (Tylenol 325mg Tab) 650 mg PO Q4H PRN PRN Reason: mild pain (1-3) Acetaminophen (Tylenol 325mg Tab) 650 mg PO Q4H PRN PRN Reason: Temp >100.4 Al Hydrox/Mg Hydrox/Simethicone (Maalox Plus 30 Ml) 30 ml PO Q4H PRN PRN Reason: heartburn & indigestion Amlodipine Besylate (Norvasc) 5 mg PO DAILY [facility] Last Admin: 11/07/17 10:27 Dose: 5 mg Donepezil HCl (Aricept) 5 mg PO HS [facility] Last Admin: 11/07/17 22:43 Dose: 5 mg Epoetin Jorje (Procrit) 10,000 unit SC TUTH [facility] Ferrous Sulfate (Feosol) 325 mg PO DAILY [facility] Last Admin: 11/07/17 10:27 Dose: 325 mg Dextrose/Sodium Chloride (Dextrose 5%/0.9% Ns 1000 Ml) 1,000 mls @ 75 mls/hr IV .[id number] [facility] Last Admin: 11/08/17 05:40 Dose: 75 mls/hr Losartan Potassium (Cozaar) 50 mg PO DAILY [facility] Last Admin: 11/07/17 10:27 Dose: 50 mg Magnesium Hydroxide (Milk Of Magnesia) 30 ml PO Q24H PRN PRN Reason: no BM after 3 days Ondansetron HCl (Zofran Inj) 4 mg IVP Q6H [facility] Last Admin: 11/08/17 05:48 Dose: 4 mg - Labs Labs: 11/07/17 23:17 11/07/17 06:18 PT 11.6 SECONDS (9.7-12.2) 11/06/17 23:31 INR 1.0 11/06/17 23:31 APTT 29 SECONDS (21-34) 11/06/17 23:31
[2017-11-08 11:45] LABS: BASO # 0.1 K/uL (0.0-0.2); EOS # 0.1 K/uL (0.0-0.7); EOS % 0.6 % (0.0-4.0); HEMOGLOBIN 9.3 g/dL (11.0-16.0); LYMPH # 1.3 K/uL (1.0-4.3); LYMPH % 12.3 % (20.0-40.0); MEAN CORPUSCULAR HEMOGLOBIN 21.4 pg (27.0-31.0); MEAN CORPUSCULAR HGB CONC 32.5 g/dL (33.0-37.0); MEAN PLATELET VOLUME 8.2 fL (7.2-11.7); MONO # 0.7 K/uL (0.0-0.8); MONO % 6.2 % (0.0-10.0); NEUT # 8.5 K/uL (1.8-7.0); NEUT % 79.9 % (50.0-75.0); RBC 4.34 Mil/uL (3.80-5.20); RED CELL DISTRIBUTION WIDTH 23.3 % (11.5-14.5); WHITE BLOOD COUNT 10.6 K/uL (4.8-10.8)
[2017-11-08 12:07] LABS: ALB/GLOB RATIO 0.9 (1.0-2.1); ALT/SGPT 20 U/L (9-52); AST/SGOT 18 U/L (14-36); BLOOD UREA NITROGEN 13 mg/dL (7-17); CALCIUM 9.2 mg/dl (8.6-10.4); GFR AFRICAN-AMERICAN > 60; GFR NON-AFRICAN AMERICAN > 60; HDL CHOLESTEROL 22 mg/dL (30-70)
[2017-11-08 12:17] LABS: LDL CHOLESTEROL 60 mg/dL (0-129)
--- NOTE | 2017-11-08 14:10 | PN ---
LOCATION: [facility], bed A. SUBJECTIVE: This is an 87-year-old female seen and examined in rounds, post upper endoscopy yesterday due to reported GI bleeding. No reported active bleeding from the colostomy tube early this morning and no reported chest pain, palpitation, significant shortness of breath, chills, or fever as per the staff and the note. The entire chart is reviewed, including but not limited to the most recent lab and radiology study results, current and previous medication list, current and previous medical events. LABORATORY DATA: Today's lab is still pending; however, the patient reported to have positive guaiac stool with leukocytosis and low hemoglobin and hematocrit as well as highly suggestive of hypochromic microcytic anemia. PHYSICAL EXAMINATION: GENERAL: This is an 87-year-old female. VITAL SIGNS: Afebrile with pulse of 76, respiratory rate 20 to 22 with blood pressure 148/70. HEENT: Showed pale, dry oral mucous membrane. Nonicteric sclerae. LUNGS: Few scattered crepitation, decreased air entry at bases. HEART: Positive S1 and S2. ABDOMEN: Soft, bowel sounds are present. No mass or organomegaly. No rebound tenderness or guarding. Colostomy tube is in place. EXTREMITIES: With mild lower extremity edematous changes. No clubbing or cyanosis. NEUROLOGIC: No reported new neurological deficits, sensory or motor. IMPRESSION: 1. Reported gastrointestinal bleeding, rule out occult lower gastrointestinal malignancy versus gastrointestinal blood loss from the colon. 2. Anemia secondary to above. 3. Known history of hypertension as well as gallbladder disease. SUGGESTIONS: 1. Continue current management. 2. Blood transfusion to keep hemoglobin around 10 gm percent. 3. Endoscopic evaluation of the lower gastrointestinal tract through colostomy if the patient has subsequent drop of hemoglobin and hematocrit and evidence of active bleeding; otherwise close observation to follow. 4. Cancer markers. Jessica Navas MD
--- NOTE | 2017-11-08 18:08 | CP.PCM.CON ---
History of Present Illness - History of Present Illness History of Present Illness: 87 year old female with a history of dementia, HTN, parastomal hernia with colostomy, admitted with bleeding/blood clots noted in colostomy, with anemia. She is s/p EGD and found to have a gastric ulcer and gastritis. Review of her blood work shows a hgb doron of 7.3. Past medical history: dementia, HTN, colostomy Past surgical history: Colostomy Family history: Denies hematologic and oncologic problems Social history: Denies tobacco, alcohol, and illicit drug use. Allergies: NKA Review of systems: All remaining review of systems including HEENT, cardiovascular, respiratory, gastrointestinal, genitourinary, musculoskeletal, dermatologic, neurologic, and psychiatric are negative unless mentioned in the HPI. Past Patient History - Past Medical History & Family History Past Medical History?: Yes - Past Social History Smoking Status: Never Smoked - CARDIAC Hx Hypertension: Yes - PULMONARY Hx Respiratory Disorders: No - NEUROLOGICAL Hx Neurological Disorder: No - HEENT Hx HEENT Problems: No Other/Comment: hard of hearing - RENAL Hx Chronic Kidney Disease: No - ENDOCRINE/METABOLIC Hx Endocrine Disorders: No - HEMATOLOGICAL/ONCOLOGICAL Hx Blood Disorders: No - INTEGUMENTARY Hx Dermatological Problems: No - MUSCULOSKELETAL/RHEUMATOLOGICAL Hx Musculoskeletal Disorders: Yes Hx Falls: Yes - GASTROINTESTINAL Hx Gall Bladder Disease: Yes - GENITOURINARY/GYNECOLOGICAL Hx Genitourinary Disorders: No - PSYCHIATRIC Hx Substance Use: No - SURGICAL HISTORY Hx Surgeries: Yes Other/Comment: abdominal sx s/p ruptured - ANESTHESIA Hx Anesthesia: Yes Hx Anesthesia Reactions: No Hx Malignant Hyperthermia: No Meds Allergies/Adverse Reactions: Allergies Allergy/AdvReac Type Severity Reaction Status Date / Time No Known Allergies Allergy Verified 07/01/17 18:34 - Medications Medications: Current Medications Acetaminophen (Tylenol 325mg Tab) 650 mg PO Q4H PRN PRN Reason: mild pain (1-3) Acetaminophen (Tylenol 325mg Tab) 650 mg PO Q4H PRN PRN Reason: Temp >100.4 Al Hydrox/Mg Hydrox/Simethicone (Maalox Plus 30 Ml) 30 ml PO Q4H PRN PRN Reason: heartburn & indigestion Amlodipine Besylate (Norvasc) 5 mg PO DAILY [facility] Last Admin: 11/08/17 10:22 Dose: 5 mg Donepezil HCl (Aricept) 5 mg PO HS [facility] Last Admin: 11/07/17 22:43 Dose: 5 mg Epoetin Jorje (Procrit) 10,000 unit SC TUTH [facility] Ferrous Sulfate (Feosol) 325 mg PO DAILY [facility] Last Admin: 11/08/17 10:22 Dose: 325 mg Dextrose/Sodium Chloride (Dextrose 5%/0.9% Ns 1000 Ml) 1,000 mls @ 75 mls/hr IV .[id number] [facility] Last Admin: 11/08/17 17:49 Dose: 75 mls/hr Losartan Potassium (Cozaar) 50 mg PO DAILY [facility] Last Admin: 11/08/17 10:22 Dose: 50 mg Magnesium Hydroxide (Milk Of Magnesia) 30 ml PO Q24H PRN PRN Reason: no BM after 3 days Ondansetron HCl (Zofran Inj) 4 mg IVP Q6H [facility] Last Admin: 11/08/17 17:49 Dose: 4 mg Physical Exam - Head Exam Head Exam: ATRAUMATIC - Eye Exam Eye Exam: Normal appearance - ENT Exam ENT Exam: Mucous Membranes Dry - Respiratory Exam Respiratory Exam: NORMAL BREATHING PATTERN - Cardiovascular Exam Cardiovascular Exam: +S1, +S2 - GI/Abdominal Exam GI & Abdominal Exam: Normal Bowel Sounds Results - Vital Signs Recent Vital Signs: Last Vital Signs Temp 97.9 F 11/08/17 16:39 Pulse 72 11/08/17 16:41 Resp 20 11/08/17 16:39 BP 140/74 11/08/17 16:39 Pulse Ox 95 11/08/17 16:39 - Labs Result Diagrams: 11/08/17 11:38 11/08/17 11:38 Labs: Laboratory Results - last 24 hr 11/06/17 11/07/17 11/07/17 23:37 19:18 23:17 WBC 14.0 H RBC 4.30 Hgb 9.2 L Hct 28.3 L MCV 65.8 L D MCH 21.5 L MCHC 32.7 L RDW 23.6 H Plt Count 327 MPV 9.1 Neut % (Auto) 75.7 H Lymph % (Auto) 15.9 L [place] % (Auto) 7.2 Eos % (Auto) 0.6 Baso % (Auto) 0.6 Neut # (Auto) 10.5 H Lymph # (Auto) 2.2 [place] # (Auto) 1.0 H Eos # (Auto) 0.1 Baso # (Auto) 0.1 Sodium Potassium Chloride Carbon Dioxide Anion Gap BUN Creatinine Est GFR ( Amer) Est GFR (Non-Af Amer) Random Glucose Calcium Total Bilirubin AST ALT Alkaline Phosphatase Total Protein Albumin Globulin Albumin/Globulin Ratio Triglycerides Cholesterol LDL Cholesterol Direct HDL Cholesterol Alpha Fetoprotein Carcinoembryonic Ag CA 19-9 Antigen CA 125 Antigen TSH 3rd Generation Urine Color Yellow Urine Clarity Clear Urine pH 5.0 Ur Specific [place] 1.012 Urine Protein Negative Urine Glucose (UA) Normal Urine Ketones Negative Urine Blood 3+ H Urine Nitrate Negative Urine Bilirubin Negative Urine Urobilinogen Normal Ur Leukocyte Esterase 2+ H Urine WBC (Auto) 26 H Urine RBC (Auto) 30 H Ur Squamous Epith Cells < 1 Ur Transition Epith Cell < 1 Urine Bacteria Occ H Blood Type O POSITIVE Antibody Screen Negative 11/08/17 11/08/17 11/08/17 11:38 11:38 11:38 WBC 10.6 RBC 4.34 Hgb 9.3 L Hct 28.7 L MCV 66.0 L MCH 21.4 L MCHC 32.5 L RDW 23.3 H Plt Count 341 MPV 8.2 Neut % (Auto) 79.9 H Lymph % (Auto) 12.3 L [place] % (Auto) 6.2 Eos % (Auto) 0.6 Baso % (Auto) 1.0 Neut # (Auto) 8.5 H Lymph # (Auto) 1.3 [place] # (Auto) 0.7 Eos # (Auto) 0.1 Baso # (Auto) 0.1 Sodium 140 Potassium 3.6 Chloride 106 Carbon Dioxide 24 Anion Gap 13 BUN 13 Creatinine 0.6 L Est GFR ( Amer) > 60 Est GFR (Non-Af Amer) > 60 Random Glucose 117 H Calcium 9.2 Total Bilirubin 0.7 AST 18 ALT 20 Alkaline Phosphatase 58 Total Protein 6.3 Albumin 3.0 L Globulin 3.3 Albumin/Globulin Ratio 0.9 L Triglycerides 139 Cholesterol 114 LDL Cholesterol Direct 60 HDL Cholesterol 22 L Alpha Fetoprotein 1.4 Carcinoembryonic Ag 3.8 H CA 19-9 Antigen 6.0 CA 125 Antigen 9.0 TSH 3rd Generation 1.38 Urine Color Urine Clarity Urine pH Ur Specific [place] Urine Protein Urine Glucose (UA) Urine Ketones Urine Blood Urine Nitrate Urine Bilirubin Urine Urobilinogen Ur Leukocyte Esterase Urine WBC (Auto) Urine RBC (Auto) Ur Squamous Epith Cells Ur Transition Epith Cell Urine Bacteria Blood Type Antibody Screen Assessment & Plan (1) Anemia Assessment and Plan: rule out iron deficiency, anemia of acute GI blood loss will check ferritin, retic count, b12, folate Thank you for this interesting consult. Status: Acute
--- NOTE | 2017-11-09 04:24 | PN ---
DATE: 11/08/2017 SUBJECTIVE: The patient was seen and examined at bedside. The patient denies any new complaints. PHYSICAL EXAMINATION GENERAL: Elderly female, lying in bed, in no acute distress. VITAL SIGNS: Blood pressure 131/68, pulse 79, respirations 18, temperature 98.2 degrees Fahrenheit, O2 saturations 96% on nasal cannula.. HEENT: Pupils equal, round, and reacting to light and accommodation. Extraocular muscles intact. No icterus. Positive pallor. No oral thrush. Dry mucous membranes. No pharyngeal congestion. NECK: Supple. No JVD. LUNGS: Bilateral vesicular breath sounds. No wheezing. No rhonchi. CVS: S1, S2 present. Regular. ABDOMEN: Soft. Nontender. Bowel sounds are present. No guarding. No rigidity. No rebound tenderness noted. Colostomy site clean without any oozing or blood clots noted. WAITSTAFF CAPTAIN: Alert, awake, oriented x 1. No focal deficits noted. EXTREMITIES: No edema. MEDICATIONS: Include Tylenol as needed, Maalox as needed, Norvasc 5 mg daily, D5 normal saline at 75 cc an hour, Aricept 5 mg at bedtime, Procrit 10,000 units subcu Friday, , Friday, ferrous sulphate 325 mg p.o. daily, Losartan 50 mg p.o. daily, Zofran as needed. LABORATORY DATA: Labs from this morning WBC 10.6, hemoglobin 9.3, hematocrit 28.7, platelets 341. Sodium 140, potassium 3.6, chloride 106, bicarbonate 24, BUN 13, creatinine 0.6, glucose 177, calcium 9.2. Total bilirubin 0.7, AST 18, ALT 20, alkaline phosphatase 58. Triglycerides 139, cholesterol 114. LDL 60, HDL 22, alpha-fetoprotein 1.4, CEA 3.8, CA 19-9, CA-125 within normal limits. TSH 1.38. Stool occult blood positive. ASSESSMENT AND PLAN: Elderly female with history of dementia, hypertension, iron-deficiency anemia, status post intravenous iron therapy, on Procrit, admitted for bleeding at the colostomy site with decreased hemoglobin and hematocrit, status post esophagogastroduodenoscopy consistent with gastric ulcer and gastritis, status post one unit of packed red blood cells transfusion. Hemoglobin and hematocrit remains stable, elevated carcinoembryonic antigen. Continue with current therapy. Gastrointestinal input appreciated. Request Hematology evaluation. Iron studies done during at the time of admission shows iron 28, total iron binding capacity 197, and saturation was 12%. The patient received intravenous Ferrlecit during the last admission. We will monitor for any further bleeding. We will continue with Seamus Ravi. Follow up with pathology report. library services dean for discharge planning. Suzi Carter MD
[2017-11-09] MEDS: Dextrose 5%/0.9% NS 1,000 ML IV SCH ×2 (07:28→20:27)
[2017-11-09 09:51] LABS: BASO # 0.1 K/uL (0.0-0.2); BASO % 0.8 % (0.0-2.0); EOS # 0.1 K/uL (0.0-0.7); EOS % 1.6 % (0.0-4.0); HEMOGLOBIN 9.4 g/dL (11.0-16.0); LYMPH # 1.2 K/uL (1.0-4.3); LYMPH % 13.4 % (20.0-40.0); MEAN CORPUSCULAR HEMOGLOBIN 21.4 pg (27.0-31.0); MEAN CORPUSCULAR HGB CONC 32.4 g/dL (33.0-37.0); MEAN PLATELET VOLUME 8.2 fL (7.2-11.7); MONO # 0.7 K/uL (0.0-0.8); MONO % 7.5 % (0.0-10.0); NEUT # 6.9 K/uL (1.8-7.0); NEUT % 76.7 % (50.0-75.0); NRBC % 0.1 % (0.0-2.0); RBC 4.4 Mil/uL (3.80-5.20); RED CELL DISTRIBUTION WIDTH 23.3 % (11.5-14.5); WHITE BLOOD COUNT 8.9 K/uL (4.8-10.8)
[2017-11-09 10:00] LABS: ALB/GLOB RATIO 0.8 (1.0-2.1); ALBUMIN 2.9 g/dL (3.5-5.0); ALT/SGPT 26 U/L (9-52); AST/SGOT 17 U/L (14-36); BLOOD UREA NITROGEN 8 mg/dL (7-17); CALCIUM 8.7 mg/dl (8.6-10.4); GFR AFRICAN-AMERICAN > 60; GFR NON-AFRICAN AMERICAN > 60
[2017-11-09 11:07] LABS: FOLATE 11.1 ng/mL
[2017-11-09] MEDS ORDERED: Peg-Electrolyte Oral Soln 4L (Golytely) PO ONE (13:00)
--- NOTE | 2017-11-09 13:54 | PN ---
DATE: 11/09/2017. LOCATION: [facility], bed A. SUBJECTIVE: This is an 87 years old female seen and examined in rounds without significant clinical changes but with earlier bleeding through the previously inserted colostomy tube. No reported chest pain, palpitation, significant shortness of breath, chills or fever so far. The entire chart is reviewed including but not limited to the most recent lab and radiology study results, current and previous medication list, current and the previous medical events. Today's lab is still pending, but the patient reported hypochromic microcytic anemia with elevated CEA level and low albumin. PHYSICAL EXAMINATION: GENERAL: An 87 years old female. VITAL SIGNS: Afebrile with pulse of 66, respiratory rate 20 to 22, blood pressure 130/66. HEENT: Showed mildly pale, dry oral mucous membrane. Nonicteric sclerae. LUNGS: Few scattered crepitation, decreased air entry at bases. HEART: Positive S1 and S2. ABDOMEN: Soft, bowel sounds are present. Colostomy tube is in place with guaiac positive stool and trace of fresh blood. EXTREMITIES: Without significant clubbing, cyanosis or edema. IMPRESSION: 1. Gastrointestinal bleeding, most likely lower with subsequent drop of hemoglobin and hematocrit. 2. Peptic ulcer disease by recent upper endoscopy. 3. Past medical history including hypertension with gallbladder disease. 4. Elevated CEA level to rule out occult blood gastrointestinal malignancy. SUGGESTIONS: 1. Continue current management. 2. Blood transfusion as needed to keep hemoglobin around 10 gm percent. 3. The patient for colonoscopy at a.m. Jessica Navas MD
[2017-11-09] MEDS: Potassium Chloride 20 mEq ER Tab PO SCH ×2 (14:40→19:05)
[2017-11-09] MEDS ORDERED: Bisacodyl 5mg EC Tab PO ONE (17:00)
--- NOTE | 2017-11-09 17:09 | CP.PCM.PN ---
Subjective - Date & Time of Evaluation Date of Evaluation: 11/09/17 Time of Evaluation: 17:10 - Subjective Subjective: Progress note dictated #[id number] Objective - Vital Signs/Intake and Output Vital Signs (last 24 hours): Temp Pulse Resp BP Pulse Ox 98.6 F 80 18 165/82 H 98 11/09/17 16:43 11/09/17 16:43 11/09/17 16:43 11/09/17 16:43 11/09/17 16:43 Intake and Output: 11/09/17 11/09/17 06:59 18:59 Intake Total 1000 Balance 1000 - Medications Medications: Current Medications Acetaminophen (Tylenol 325mg Tab) 650 mg PO Q4H PRN PRN Reason: mild pain (1-3) Acetaminophen (Tylenol 325mg Tab) 650 mg PO Q4H PRN PRN Reason: Temp >100.4 Al Hydrox/Mg Hydrox/Simethicone (Maalox Plus 30 Ml) 30 ml PO Q4H PRN PRN Reason: heartburn & indigestion Amlodipine Besylate (Norvasc) 5 mg PO DAILY [facility] Last Admin: 11/09/17 09:35 Dose: 5 mg Donepezil HCl (Aricept) 5 mg PO HS [facility] Last Admin: 11/08/17 21:13 Dose: 5 mg Epoetin Jorje (Procrit) 10,000 unit SC TUTH [facility] Ferrous Sulfate (Feosol) 325 mg PO DAILY [facility] Last Admin: 11/09/17 09:35 Dose: 325 mg Dextrose/Sodium Chloride (Dextrose 5%/0.9% Ns 1000 Ml) 1,000 mls @ 75 mls/hr IV .[id number] [facility] Last Admin: 11/09/17 07:28 Dose: 75 mls/hr Losartan Potassium (Cozaar) 50 mg PO DAILY [facility] Last Admin: 11/09/17 09:35 Dose: 50 mg Magnesium Hydroxide (Milk Of Magnesia) 30 ml PO Q24H PRN PRN Reason: no BM after 3 days Ondansetron HCl (Zofran Inj) 4 mg IVP Q6H [facility] Last Admin: 11/09/17 12:40 Dose: 4 mg Potassium Chloride (K-Dur 20 Meq Er Tab) 40 meq PO Q4H [facility] Stop: 11/09/17 19:30 Last Admin: 11/09/17 14:40 Dose: 40 meq - Labs Labs: 11/09/17 09:36 11/09/17 09:36 PT 11.6 SECONDS (9.7-12.2) 11/06/17 23:31 INR 1.0 11/06/17 23:31 APTT 29 SECONDS (21-34) 11/06/17 23:31
--- NOTE | 2017-11-10 07:45 | PN ---
DATE: 11/09/2017. SUBJECTIVE: The patient was seen and examined at bedside. The patient is confused. Denies any complaints, but requesting for regular diet claiming that has been taking only liquid diet for the past three days. Denies any chest pain, shortness of breath or wheezing. PHYSICAL EXAMINATION: GENERAL: Elderly female, lying in bed in no acute distress. VITAL SIGNS: Blood pressure 165/82, pulse 80, respirations 18, temperature 98.6 degrees Fahrenheit, O2 saturation 98% on room air. HEENT: Pupils equal, round and reacting to light and accommodation. Extraocular muscles are intact. No icterus. Positive pallor. No oral thrush. No pharyngeal congestion. NECK: Supple. No JVD. LUNGS: Bilateral vesicular breath sounds. No wheezing. No rhonchi. CVS: S1, S2 present. Regular. ABDOMEN: Soft. Nontender. Bowel sounds present. No guarding. No rigidity. No rebound tenderness noted. MASTER PLUMBER: Alert, awake, oriented x1. No focal deficits noted. EXTREMITIES: No edema. Palpable peripheral pulses. MEDICATIONS: Tylenol as needed, Maalox, Norvasc 5 mg daily, D5 normal saline at 75 mL an hour, Aricept 5 mg p.o. at bedtime, Procrit 10,000 units subcu Friday, and Friday, Feosol 325 mg daily, losartan 50 mg daily, mag oxide, Zosyn as needed, K-Dur. LABORATORY DATA: Her labs from this morning; WBC 8.9, hemoglobin 9.4, hematocrit 29, platelets 331. Sodium 141, potassium 3.2, chloride 106, bicarbonate 27, BUN 8, creatinine 0.6, glucose 99, calcium 8.7, ferritin 1010, bilirubin 0.8, AST 17, ALT 26, alkaline phosphatase 61, B12 605, folate 11.1, TSH 1.38. ASSESSMENT AND PLAN: Elderly female with hypertension, dementia, status post colostomy, anemia, status post IV iron therapy admitted for bleeding from the colostomy site, status post EGD consistent with gastric ulcer and gastritis, hiatal hernia, status post 1 unit of PRBC, hemoglobin and hematocrit remained stable, elevated CEA rule out occult gastrointestinal malignancy. Hematology consult appreciated. Gastrointestinal input appreciated for possible colonoscopy in a.m. We will continue with current medication. The patient was found to be having elevated blood pressures, we will continue to monitor the blood pressure closely. Continue with Norvasc 5 mg daily and losartan 50 mg daily. We will adjust medication as needed. Continue with clear liquids and she will be kept n.p.o. for possible colonoscopy in [facility] for discharge planing. Suzi Carter MD
[2017-11-10 09:17] LABS: BASO # 0.1 K/uL (0.0-0.2); BASO % 0.5 % (0.0-2.0); EOS # 0.2 K/uL (0.0-0.7); EOS % 1.4 % (0.0-4.0); HEMOGLOBIN 9.9 g/dL (11.0-16.0); LYMPH # 1.5 K/uL (1.0-4.3); LYMPH % 14.3 % (20.0-40.0); MEAN CELL VOLUME 65.9 fL (81.0-99.0); MEAN CORPUSCULAR HEMOGLOBIN 21.3 pg (27.0-31.0); MEAN CORPUSCULAR HGB CONC 32.3 g/dL (33.0-37.0); MEAN PLATELET VOLUME 8.8 fL (7.2-11.7); MONO # 0.8 K/uL (0.0-0.8); MONO % 7.6 % (0.0-10.0); NEUT # 8.2 K/uL (1.8-7.0); NEUT % 76.2 % (50.0-75.0); NRBC % 0.2 % (0.0-2.0); RBC 4.63 Mil/uL (3.80-5.20); WHITE BLOOD COUNT 10.8 K/uL (4.8-10.8)
[2017-11-10] MEDS: Dextrose 5%/0.9% NS 1,000 ML IV SCH (09:38)
[2017-11-10 09:41] LABS: BLOOD UREA NITROGEN 5 mg/dL (7-17); CALCIUM 8.9 mg/dl (8.6-10.4); GFR AFRICAN-AMERICAN > 60; GFR NON-AFRICAN AMERICAN > 60; MAGNESIUM 1.6 mg/dL (1.6-2.3)
--- NOTE | 2017-11-10 10:53 | CP.PCM.PN ---
Subjective - Date & Time of Evaluation Date of Evaluation: 11/10/17 - Subjective Subjective: Progress note dictated #[id number] Objective - Vital Signs/Intake and Output Vital Signs (last 24 hours): Temp Pulse Resp BP Pulse Ox 98.0 F 69 18 159/74 H 95 11/10/17 07:46 11/10/17 07:46 11/10/17 07:46 11/10/17 07:46 11/10/17 07:46 Intake and Output: 11/10/17 11/10/17 06:59 18:59 Intake Total 1000 Balance 1000 - Medications Medications: Current Medications Acetaminophen (Tylenol 325mg Tab) 650 mg PO Q4H PRN PRN Reason: mild pain (1-3) Acetaminophen (Tylenol 325mg Tab) 650 mg PO Q4H PRN PRN Reason: Temp >100.4 Al Hydrox/Mg Hydrox/Simethicone (Maalox Plus 30 Ml) 30 ml PO Q4H PRN PRN Reason: heartburn & indigestion Amlodipine Besylate (Norvasc) 5 mg PO DAILY [facility] Last Admin: 11/10/17 09:37 Dose: 5 mg Donepezil HCl (Aricept) 5 mg PO HS [facility] Last Admin: 11/09/17 21:32 Dose: 5 mg Epoetin Jorje (Procrit) 10,000 unit SC TUTH [facility] Ferrous Sulfate (Feosol) 325 mg PO DAILY [facility] Last Admin: 11/10/17 09:36 Dose: 325 mg Dextrose/Sodium Chloride (Dextrose 5%/0.9% Ns 1000 Ml) 1,000 mls @ 75 mls/hr IV .[id number] [facility] Last Admin: 11/10/17 09:38 Dose: 75 mls/hr Losartan Potassium (Cozaar) 50 mg PO DAILY [facility] Last Admin: 11/10/17 09:37 Dose: 50 mg Magnesium Hydroxide (Milk Of Magnesia) 30 ml PO Q24H PRN PRN Reason: no BM after 3 days Ondansetron HCl (Zofran Inj) 4 mg IVP Q6H [facility] Last Admin: 11/10/17 07:46 Dose: 4 mg - Labs Labs: 11/10/17 09:06 11/10/17 09:06 PT 11.6 SECONDS (9.7-12.2) 11/06/17 23:31 INR 1.0 11/06/17 23:31 APTT 29 SECONDS (21-34) 11/06/17 23:31
[2017-11-10] MEDS ORDERED: Sodium Chloride 0.9% 1,000 ML IV ONE (11:05)
[2017-11-10] MEDS ORDERED: Propofol 10 mg/ml Inj (20 ML) ONE (11:09)
--- NOTE | 2017-11-10 22:39 | CP.PCM.PN ---
Subjective - Date & Time of Evaluation Date of Evaluation: 11/10/17 Time of Evaluation: 18:15 - Subjective Subjective: Feeling better, no complaints. Objective - Vital Signs/Intake and Output Vital Signs (last 24 hours): Temp Pulse Resp BP Pulse Ox 97.5 F L 79 20 151/82 H 97 11/10/17 15:58 11/10/17 15:58 11/10/17 15:58 11/10/17 15:58 11/10/17 15:58 - Medications Medications: Current Medications Acetaminophen (Tylenol 325mg Tab) 650 mg PO Q4H PRN PRN Reason: mild pain (1-3) Acetaminophen (Tylenol 325mg Tab) 650 mg PO Q4H PRN PRN Reason: Temp >100.4 Al Hydrox/Mg Hydrox/Simethicone (Maalox Plus 30 Ml) 30 ml PO Q4H PRN PRN Reason: heartburn & indigestion Amlodipine Besylate (Norvasc) 5 mg PO DAILY [facility] Last Admin: 11/10/17 09:37 Dose: 5 mg Donepezil HCl (Aricept) 5 mg PO HS [facility] Last Admin: 11/10/17 21:07 Dose: 5 mg Epoetin Jorje (Procrit) 10,000 unit SC TUTH [facility] Ferrous Sulfate (Feosol) 325 mg PO DAILY [facility] Last Admin: 11/10/17 09:36 Dose: 325 mg Dextrose/Sodium Chloride (Dextrose 5%/0.9% Ns 1000 Ml) 1,000 mls @ 75 mls/hr IV .[id number] [facility] Last Admin: 11/10/17 09:38 Dose: 75 mls/hr Losartan Potassium (Cozaar) 50 mg PO DAILY [facility] Last Admin: 11/10/17 09:37 Dose: 50 mg Magnesium Hydroxide (Milk Of Magnesia) 30 ml PO Q24H PRN PRN Reason: no BM after 3 days Ondansetron HCl (Zofran Inj) 4 mg IVP Q6H [facility] Last Admin: 11/10/17 18:19 Dose: 4 mg - Labs Labs: 11/10/17 09:06 11/10/17 09:06 PT 11.6 SECONDS (9.7-12.2) 11/06/17 23:31 INR 1.0 11/06/17 23:31 APTT 29 SECONDS (21-34) 11/06/17 23:31 - Head Exam Head Exam: ATRAUMATIC - Eye Exam Eye Exam: Normal appearance - ENT Exam ENT Exam: Mucous Membranes Dry - Respiratory Exam Respiratory Exam: NORMAL BREATHING PATTERN - Cardiovascular Exam Cardiovascular Exam: +S1, +S2 - GI/Abdominal Exam GI & Abdominal Exam: Normal Bowel Sounds Assessment and Plan (1) Anemia Assessment & Plan: FOBT positive, anemia of chronic disease no evidence of iron, b12, folate deficiency agree with procrit supplementation to decrease transfusion dependence 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
[2017-11-11] MEDS: Dextrose 5%/0.9% NS 1,000 ML IV SCH ×2 (00:16→13:24)
--- NOTE | 2017-11-11 04:25 | PN ---
DATE: SUBJECTIVE: The patient's condition remains the same, offers no new complaints. PHYSICAL EXAMINATION GENERAL: Elderly female, in no acute distress. VITAL SIGNS: Blood pressure 147/87, pulse 74, respirations 14, temperature 96.8 degree Fahrenheit, O2 saturations is 100% on room air. HEENT: Pupils equal, round, reactive to light and accommodation. Extraocular muscles intact. No icterus. Positive pallor. No oral thrush. No pharyngeal congestion. NECK: Supple. No JVD. LUNGS: Bilaterally clear breath sounds. No wheezing, no rhonchi. CVS: S1 and S2 present. Regular. ABDOMEN: Soft, nontender. Bowel sounds are present. No guarding, no rigidity. No rebound tenderness noted. Colostomy site clean without any bleeding or oozing. DIE MAKER TRIM: Alert, awake, oriented x1. No focal deficits noted. EXTREMITIES: No edema. MEDICATIONS: Include Tylenol, Maalox, amlodipine 5 mg daily, D5 normal saline at 10 mL an hour, Aricept 5 mg p.o. nightly, Procrit 10,000 units, Friday, , Feosol 325 mg p.o. daily, Cozaar 50 mg daily, Zofran as needed. LABS: From today, WBC 10.8, hemoglobin 9.9, hematocrit 30.5, platelets 391, sodium 139, potassium 4.0, chloride 107, bicarb 25, BUN 5, creatinine 0.05, glucose 101, calcium 8.9, magnesium 1.6. Biopsy results of antrum shows fragments of gastric antrum mucosa with reaction of gastropathy, negative for H. pylori, colonoscopy consistent with moderate diverticulosis in the transverse colon and in the ascending colon. No evidence of diverticular bleeding, congested mucosa in the ascending colon, patent, and ileocolonic anastomosis. ASSESSMENT AND PLAN: An elderly female with hypertension, dementia, iron deficiency anemia, status post IV iron therapy, and B12 supplementation, status post colostomy, many years ago, admitted for GI bleeding, at the colostomy site, status post EGD consistent with gastritis and two small ulcers. Pathology report negative for any malignancies, status post colonoscopy consistent with diverticulosis. Status post one unit of PRBC transfusion with stable H and H. We will advance diet as per GI, if her hemoglobin remains stable tomorrow, we will plan transferring the patient back to the alf. We will request [employer] for discharge planning. Suzi Carter MD
[2017-11-11 07:56] LABS: BASO # 0.1 K/uL (0.0-0.2); BASO % 0.4 % (0.0-2.0); EOS # 0.2 K/uL (0.0-0.7); EOS % 1.2 % (0.0-4.0); LYMPH # 1.4 K/uL (1.0-4.3); LYMPH % 9.8 % (20.0-40.0); MEAN CELL VOLUME 65.8 fL (81.0-99.0); MEAN CORPUSCULAR HEMOGLOBIN 21.3 pg (27.0-31.0); MEAN CORPUSCULAR HGB CONC 32.4 g/dL (33.0-37.0); MEAN PLATELET VOLUME 8.7 fL (7.2-11.7); MONO # 0.8 K/uL (0.0-0.8); MONO % 5.9 % (0.0-10.0); NEUT # 11.6 K/uL (1.8-7.0); NEUT % 82.7 % (50.0-75.0); NRBC % 0.1 % (0.0-2.0); PLATELET COUNT 404 K/uL (130-400); RBC 4.69 Mil/uL (3.80-5.20); RED CELL DISTRIBUTION WIDTH 25.1 % (11.5-14.5); WHITE BLOOD COUNT 14.1 K/uL (4.8-10.8)
[2017-11-11 08:04] VITALS: O2SAT 95
[2017-11-11 08:56] LABS: EOSINOPHIL 1 % (0-4); LYMPHOCYTE 8 % (20-40); MONOCYTE 8 % (0-10); NEUTROPHIL 83 % (50-75); TOTAL CELLS COUNTED 100
[2017-11-11 08:59] LABS: ANISOCYTOSIS MODERATE; PLATELET ESTIMATE NORMAL (NORMAL)
[2017-11-11 09:01] LABS: HYPOCHROMIC MODERATE; POLYCHROMIC SLIGHT
[2017-11-11 09:02] LABS: MICROCYTOSIS MODERATE; OVALOCYTES SLIGHT; TARGET CELLS SLIGHT
[2017-11-11] MEDS ORDERED: Epoetin Alfa 10,000 unit/ml Dialysis SC SCH (10:00)
--- NOTE | 2017-11-11 11:23 | CP.PCM.PN ---
Subjective - Date & Time of Evaluation Date of Evaluation: 11/11/17 Time of Evaluation: 11:20 - Subjective Subjective: Discharge summary dictated # [id number] Objective - Vital Signs/Intake and Output Vital Signs (last 24 hours): Temp Pulse Resp BP Pulse Ox 98.2 F 69 20 147/73 95 11/11/17 07:25 11/11/17 07:25 11/11/17 07:25 11/11/17 07:25 11/11/17 07:25 - Medications Medications: Current Medications Acetaminophen (Tylenol 325mg Tab) 650 mg PO Q4H PRN PRN Reason: mild pain (1-3) Acetaminophen (Tylenol 325mg Tab) 650 mg PO Q4H PRN PRN Reason: Temp >100.4 Al Hydrox/Mg Hydrox/Simethicone (Maalox Plus 30 Ml) 30 ml PO Q4H PRN PRN Reason: heartburn & indigestion Amlodipine Besylate (Norvasc) 5 mg PO DAILY [facility] Last Admin: 11/11/17 09:30 Dose: 5 mg Donepezil HCl (Aricept) 5 mg PO HS [facility] Last Admin: 11/10/17 21:07 Dose: 5 mg Epoetin Jorje (Procrit) 10,000 unit SC TUTH [facility] Last Admin: 11/11/17 09:30 Dose: 10,000 unit Ferrous Sulfate (Feosol) 325 mg PO DAILY [facility] Last Admin: 11/11/17 09:30 Dose: 325 mg Dextrose/Sodium Chloride (Dextrose 5%/0.9% Ns 1000 Ml) 1,000 mls @ 75 mls/hr IV .[id number] [facility] Last Admin: 11/11/17 00:16 Dose: 75 mls/hr Losartan Potassium (Cozaar) 50 mg PO DAILY [facility] Last Admin: 11/11/17 09:30 Dose: 50 mg Magnesium Hydroxide (Milk Of Magnesia) 30 ml PO Q24H PRN PRN Reason: no BM after 3 days Ondansetron HCl (Zofran Inj) 4 mg IVP Q6H [facility] Last Admin: 11/11/17 06:41 Dose: 4 mg - Labs Labs: 11/11/17 07:45 11/10/17 09:06 PT 11.6 SECONDS (9.7-12.2) 11/06/17 23:31 INR 1.0 11/06/17 23:31 APTT 29 SECONDS (21-34) 11/06/17 23:31
[2017-11-11 16:18] VITALS: BP 135/83; PULSE 90; RESP 19; TEMP 98.3
[2017-11-12 04:11] LABS: MCH 21.5 pg (27.0-33.0); MCV 69.1 fL (80.0-100.0)
--- NOTE | 2017-11-12 11:46 | DS ---
DISCHARGE DIAGNOSES: Gastrointestinal bleeding from colostomy site, hypertension, anemia from acute blood loss, iron deficiency anemia, dementia, history of colostomy with parastomal hernia, status post EGD and colonoscopy. HISTORY OF PRESENT ILLNESS: Ms. Granados is an 87-year-old female with past medical history of dementia, hypertension, anemia, status post surgery with colostomy and parastomal hernia many years ago admitted for bleeding from the colostomy site. In the ED, the patient was found to be having low H and H and the patient was admitted for further evaluation. Today, the patient is much better, denies any complaints. PHYSICAL EXAMINATION: VITAL SIGNS: Blood pressure 135/83, pulse 90, respirations 19, temperature 98.3 degrees Fahrenheit and O2 sats 95% on room air. HEENT: Pupils equal, round and reacting to light and accommodation. No icterus. Mild pallor. No oral thrush. No pharyngeal congestion. NECK: Supple. No JVD. LUNGS: Bilateral vesicular breath sounds. No wheezing. No rhonchi. CVS: S1 and S2 present and regular. ABDOMEN: Soft and nontender. Bowel sounds present. No guarding. No rigidity. No rebound tenderness noted. Colostomy site clean. ALLERGY AND IMMUNOLOGY SPECIALIST: Alert, awake, oriented x1. No focal deficits noted. EXTREMITIES: No edema. Palpable peripheral pulses. LABORATORY DATA: Labs from this morning; WBC 14.1, hemoglobin 10, hematocrit 30.9, platelets 404, sodium 139, potassium 4.0, chloride 107, bicarb 25, BUN 5, creatinine 0.5, glucose 108, ferritin 1010, B12 of 605, folate 11.1. HOSPITAL COURSE: The patient was admitted to the hospital for GI bleeding. The patient had low H and H, the patient received 1 unit of PRBC transfusion. Underwent endoscopy, endoscopy consisting gastritis, small hiatal hernia and small clean based gastric ulcer which were negative for any malignancy. The patient was seen by GI, underwent colonoscopy, also revealed diverticulosis. Her malignancy workup was negative. Pathology report is also negative for any malignancy. The patient was evaluated by Hematology. Agreed with the p.o. iron supplementation. The patient's H and H remained stable. The patient is tolerating p.o. feeds. As the patient is otherwise hemodynamically stable, the patient is being discharged. CONDITION UPON DISCHARGE: The patient is alert, awake, oriented x3 and hemodynamically stable. DISCHARGE INSTRUCTIONS: Follow up with PMD. Follow up with GI. Follow up with Hematology. DISCHARGE MEDICATIONS: Include Norvasc 5 mg daily, losartan 50 mg daily, Feosol 325 mg p.o. b.i.d., Procrit 10,000 units Friday and , Aricept 5 mg daily. Advised to hold aspirin. Please also refer to discharge medication reconciliation. DIET: Low-sodium, low-cholesterol, heart healthy diet. ACTIVITIES: As tolerated. Suzi Carter MD
[2017-11-13 11:32] LABS: HEMOGLOBIN A 94.4 Percent (>96.0); HEMOGLOBIN A2 4.6 Percent (1.8-3.5)
== END 2017-11-11 16:40 | DRG 378 ==
LOC: C.ER 21:48 → C.9E 11-07 01:06 → C.5S 11-07 20:10
PROVIDERS: ADMIT Internal Medicine; ATTEND Internal Medicine
PROC: 30233N1 Transfusion of Nonautologous Red Blood Cells into Peripheral Vein, Percutaneous Approach (ICD-10-PCS; 2017-11-07)
PROC: 0DBK8ZX Excision of Ascending Colon, Via Natural or Artificial Opening Endoscopic, Diagnostic (ICD-10-PCS; 2017-11-10)
PROC: 0DB68ZX Excision of Stomach, Via Natural or Artificial Opening Endoscopic, Diagnostic (ICD-10-PCS; principal; 2017-11-10 11:02)
DX: K29.01 Acute gastritis with bleeding (principal); K94.01 Colostomy hemorrhage; D62 Acute posthemorrhagic anemia; F03.90 Unspecified dementia, unspecified severity, without behavioral disturbance, psychotic disturbance, mood disturbance, and anxiety; K44.9 Diaphragmatic hernia without obstruction or gangrene; K57.90 Diverticulosis of intestine, part unspecified, without perforation or abscess without bleeding; K43.5 Parastomal hernia without obstruction or gangrene; D50.9 Iron deficiency anemia, unspecified; I10 Essential (primary) hypertension

== ENCOUNTER 2018-03-21 05:24 | Inpatient (IN) | payer MEDICARE, BC ==
[2018-03-21 05:25] VITALS: BMI 26.5
[2018-03-21] MEDS ORDERED: Sodium Chloride 0.9% 500 ML IV ONE ×6 (06:06→10:34)
--- NOTE | 2018-03-21 06:12 | C.PDOC ---
Addendum entered and electronically signed by Khushi Steve DO 03/22/18 13:34 : Disposition Clinical Impression: Sepsis, Leukocytosis, Dehydration, Coffee ground emesis Disposition: HOSPITALIZED Disposition Time: 10:28 Condition: STABLE Critical Care Time - Critical Care Note Total Time (in mins): 35 Documented critical care: time excludes all time spent performing seperately billable procedures. Original Note: History Of Present Illness <Margie Rashid - Last Filed: 03/21/18 20:59> <Khushi Steve - Last Filed: 03/22/18 13:19> 87 year old female with PMHx of dementia [facility] for evaluation of coffee ground emesis. As per the Jail patient was seen vomiting coffee ground lie material, patient has a colostomy bag in place but Jail staff noted diminished output last day. Patient was seen last October at the ED for GI bleed. Prior GI workup shosed gastric ulcer and gastritis as revealed by scope done at the Hospital. Patient is not voicing any complaints. Due to Patient's clinical condition no further history available. ( Margie Rashid) History Per: EMS History/Exam Limitations: no limitations Onset/Duration Of Symptoms: Days Current Symptoms Are (Timing): Still Present Location Of Pain/Discomfort: Diffuse Quality Of Discomfort: Unable To Describe Associated Symptoms: Vomiting Exacerbating Factors: None Alleviating Factors: None Recent travel outside of the [place]: No Additional History Per: Jail Abnormal Vaginal Bleeding: No <Margie Rashid - Last Filed: 03/21/18 20:59> <Khushi Steve - Last Filed: 03/22/18 13:19> Chief Complaint (Nursing): GI Problem Past Medical History Reviewed: Historical Data, Nursing Documentation, Vital Signs - Medical History PMH: Alzheimer's Disease, Anemia, Dementia, Gall Bladder Disease, HTN Denies: Chronic Kidney Disease Other Surgeries: colostomy Family History: States: Unknown Family Hx - Social History Hx Alcohol Use: No Hx Substance Use: No - Immunization History Hx Tetanus Toxoid Vaccination: No Hx Influenza Vaccination: No Hx Pneumococcal Vaccination: No <Margie Rashid - Last Filed: 03/21/18 20:59> Vital Signs: Last Vital Signs Temp 99.2 F 03/22/18 08:43 Pulse 79 03/22/18 08:43 Resp 20 03/22/18 08:43 BP 142/72 03/22/18 08:43 Pulse Ox 96 03/22/18 08:43 - [facility] Procedures EXCISION OF ASCENDING COLON, ENDO, DIAGN (11/07/17) EXCISION OF STOMACH, ENDO, DIAGN (11/07/17) TRANSFUSE NONAUT RED BLOOD CELLS IN PERIPH VEIN, PERC (11/07/17) Review Of Systems Review Of Systems: ROS cannot be obtained secondary to pt's inabilty to answer questions. <Margie Rashid - Last Filed: 03/21/18 20:59> Physical Exam - Physical Exam Appears: Non-toxic, Confused, Other (elderly, frail, cachetic) Skin: Warm, Dry, Pale Head: Atraumatic, Normacephalic Eye(s): bilateral: Normal Inspection Ear(s): Bilateral: Normal Oral Mucosa: Moist Neck: Normal ROM, Supple Chest: Symmetrical Cardiovascular: Rhythm Regular Respiratory: Normal Breath Sounds, No Rales, No Rhonchi, No Wheezing Gastrointestinal/Abdominal: Soft, No Tenderness, No Guarding, No Rebound, Other (scafoid, colostomy bag on LLQ. No stool in the bag) Extremity: Normal ROM, No Tenderness, Capillary Refill (< 2 seconds), No Swelling Neurological/Psych: No Oriented x3 (only to person, demented) Disoriented To: Place, Time <Margie Rashid - Last Filed: 03/21/18 20:59> ED Course And Treatment - Laboratory Results Result Diagrams: 03/21/18 06:21 03/21/18 06:21 O2 Sat by Pulse Oximetry: 91 <Margie Rashid - Last Filed: 03/21/18 20:59> - Laboratory Results Result Diagrams: 03/22/18 11:12 03/22/18 11:12 <Khushi Steve - Last Filed: 03/22/18 13:19> Medical Decision Making <Margie Rashid - Last Filed: 03/21/18 20:59> <Khushi Steve - Last Filed: 03/22/18 13:19> Medical Decision Making: Impression: Prior Hx of upper GI bleed vs hematemesis as per Jail Plan: * Labs * Protonix 40 mg IVP * IV fluids * Zofran 4 mg IVP (Margie Rashid) Disposition - Disposition Disposition Time: 20:59 <Margie Rashid - Last Filed: 03/21/18 20:59> - Disposition Disposition Time: 10:28 <Khushi Steve - Last Filed: 03/22/18 13:19> - Disposition Disposition: HOSPITALIZED Condition: STABLE - Clinical Impression Clinical Impression: Sepsis, Leukocytosis, Dehydration, Coffee ground emesis - Scribe Statement The provider has reviewed the documentation as recorded by the Scribe <Margie Rashid - Last Filed: 03/21/18 20:59> <Khushi Steve - Last Filed: 03/22/18 13:19> - Scribe Statement Topher Null All medical record entries made by the Scribe were at my direction and personally dictated by me. I have reviewed the chart and agree that the record accurately reflects my personal performance of the history, physical exam, medical decision making, and the department course for this patient. I have also personally directed, reviewed, and agree with the discharge instructions and disposition. (Margie Rashid) Addendum <Margie Rashid - Last Filed: 03/21/18 20:59> <Khushi Steve - Last Filed: 03/22/18 13:19> Addendum: 03/21/18 09:25 Patient has elevatd lactate, significant bandemia- Code sepsis called and broad spectrum antibiotics given. IV NS boluses given in 500ml increments, patient is elderly, unknown recent EF and small pleural effusions on CT scan. CT scan: Accession No. : [id number] Patient Name / ID : WAQAR SANTOS / [id number] Exam Date : 03/21/2018 08:32:53 ( Approved ) Study Comment : Sex / Age : F / 87Y Creator : Duglas Vargas MD Dictator : Residential Substance Abuse Counselor : Mobile Sales Expert : Duglas Vargas MD Approver2 : Report Date : 03/21/2018 09:38:10 My Comment : PROCEDURE: CT Abdomen and Pelvis with Oral contrast. HISTORY: Abdominal pain, coffee ground emesis COMPARISON: None. TECHNIQUE: Contiguous axial images of the abdomen and pelvis performed without oral or intravenous contrast. Coronal and Sagittal reformats generated. Radiation dose: Total exam DLP = 243.29 mGy-cm. This CT exam was performed using one or more of the following dose reduction techniques: Automated exposure control, adjustment of the mA and/or kV according to patient size, and/or use of iterative reconstruction technique. FINDINGS: LOWER THORAX: Heart size upper limits of normal. There is a small hiatal hernia with wall thickening of the distal esophagus likely due to protrusion gastric mucosa. Esophagitis or other intrinsic/ invasive lesion not excluded. Followup endoscopy may be prudent given this patient's current history of coffee-ground emesis. Bibasilar atelectasis with small right-sided effusion a trace left-sided effusion. LIVER: The liver is maegan upper limits of normal/ borderline enlarged measuring just over 18 cm although this could be due to a Lida's lobe. No obvious hepatic mass or collection. GALLBLADDER AND BILE DUCTS: Gallbladder physiologically distended. . Previously noted layering calculi not appreciated on this study PANCREAS: Unremarkable. No mass. No ductal dilatation. SPLEEN: There is a partially exophytic apparent proteinaceous cyst arising from the medial aspect of the splenic parenchyma that measures approximately 6.4 cm AP x 5.4 cm cc x 4.9 cm trans. Few peripheral wall calcifications are present ADRENALS: Indeterminate approximately 16 mm left adrenal nodule with Hounsfield units in the mid 20s. KIDNEYS AND URETERS: There is a 11 mm calculus upper pole collecting system left kidney. . Additionally, there is a small approximately 4.3 mm calculus of left left renal pelvis/ UPJ region with minimal dilatation of the left renal pelvis. . Additional calcification in the left renal pelvis may be vascular which measures approximately 4 mm. There is a partially exophytic 12.5 mm hyperdense mass lesion posterior upper pole right kidney which could represent a hyperdense cyst versus a solid mass. Followup ultrasound recommended to distinguish between solid versus cystic lesion. BLADDER: Urinary bladder incompletely distended which presumably in part accounts for thick-walled appearance. Correlation with urinalysis recommended to exclude cystitis. REPRODUCTIVE: Unremarkable. APPENDIX: Unremarkable. BOWEL: Evaluation of the bowel is limited due to the lack of oral contrast. There is asymmetric wall thickening of the stomach which could be due to peristalsis and incomplete distention however possibility of wall lesion should be considered given the patient's history of coffee-ground emesis. Followup endoscopy. There are several distended apparent loops of small bowel in the left mid abdomen which appear to extend into a parastomal hernia along with a portion of the descending colon. The possibility of a partial or intermittent obstruction cannot be excluded. Few diverticula seen along the stump of the sigmoid colon. Suspect a peripheral suture along the wall of the rectum possibly related to prior hemorrhoid surgery. PERITONEUM: Unremarkable. No fluid collection. No free air. LYMPH NODES: Unremarkable. No enlarged lymph nodes. VASCULATURE: Unremarkable. No aortic aneurysm. BONES: Multilevel degenerative spondylosis of the lower thoracic and lumbar spine. OTHER FINDINGS: None. IMPRESSION: Minor bibasilar atelectasis right greater than left with small right-sided effusion and suspected trace left effusion. Small hiatal hernia with wall thickening of the distal esophagus and asymmetric wall thickening of the stomach which could be due to peristalsis however endoscopy followup recommended to exclude wall lesion. Re- demonstrated is a large left lower quadrant parastomal hernia containing a portion of the large bowel and and what appears to be a loop or 2 of small bowel with localized dilatation of several adjacent loops of small bowel. The possibility of a partial or intermittent obstruction not excluded Cholelithiasis. Stable large splenic cyst. Borderline hepatomegaly. Left-sided nephrolithiasis as detailed above. Hyperdense cyst or possible solid mass right kidney. Followup ultrasound recommended. . Urinary bladder wall thickening likely due to underdistention however correlation with urinalysis recommended Indeterminate left adrenal nodule as above. Followup interval recommended to assess stability. 9:50 CXR (-) infiltrates 03/21/18 09:[address] Ritter, she would like Dr. Vann for general surgery. Would like me to contact Dr. Laith Vines for admission, as she is out of town. 03/21/18 10:07 Dr. Vines not available, Dr. Hutchins requests Dr. Banda for admission. 03/21/18 10:[address] Banda, agrees with admission for sepsis, leukocytosis with bandemia, dehydration, possible bowel obstruction. UA pending. Dr. Marinelli consult entered for GI. Dr. Vann has seen patient in ED. (Khushi Steve) Decision To Admit <Margie Rashid - Last Filed: 03/21/18 20:59> - Pt Status Changed To: Hospital Disposition Of: Inpatient - Admit Certification Admit to Inpatient:: After my assessment, the patient will require hospitalization for at least two midnights. This is because of the severity of symptoms shown, intensity of services needed, and/or the medical risk in this patient being treated as an outpatient. - InPatient: Physician Admission Certification:: see notes - . Bed Request Type: Telemetry Admitting Physician: Thuan Banda <Khushi Steve - Last Filed: 03/22/18 13:19> - . Patient Diagnosis: Sepsis, Leukocytosis, Dehydration, Coffee ground emesis
[2018-03-21 06:28] LABS: BASO % 0.1 % (0.0-2.0); HEMOGLOBIN 11.4 g/dL (11.0-16.0); LYMPH # 2.5 K/uL (1.0-4.3); LYMPH % 7.4 % (20.0-40.0); MEAN CORPUSCULAR HEMOGLOBIN 21.1 pg (27.0-31.0); MEAN CORPUSCULAR HGB CONC 31.5 g/dL (33.0-37.0); MEAN PLATELET VOLUME 8.3 fL (7.2-11.7); MONO # 1.4 K/uL (0.0-0.8); NEUT # 30.2 K/uL (1.8-7.0); NEUT % 88.5 % (50.0-75.0); NRBC % 0.1 % (0.0-2.0); PLATELET COUNT 487 K/uL (130-400); WHITE BLOOD COUNT 34.2 K/uL (4.8-10.8)
[2018-03-21 06:35] LABS: ALB/GLOB RATIO 1.1 (1.0-2.1); ALBUMIN 4.4 g/dL (3.5-5.0); CALCIUM 10.2 mg/dl (8.6-10.4)
[2018-03-21 06:38] LABS: INR 1.1; PROTHROMBIN TIME 12.3 SECONDS (9.7-12.2)
[2018-03-21 09:10] LABS: BANDS 16 % (0-2); LYMPHOCYTE 3 % (20-40); METAMYELOCYTE 1 % (0-0); MONOCYTE 6 % (0-10); MYELOCYTE 1 % (0-0); NEUTROPHIL 73 % (50-75); TOTAL CELLS COUNTED 100
[2018-03-21 09:11] LABS: ANISOCYTOSIS SLIGHT; PLATELET ESTIMATE SLIGHTLY INCREASED (NORMAL); POIKILOCYTOSIS SLIGHT
[2018-03-21 09:12] LABS: HYPOCHROMIC SLIGHT; MICROCYTOSIS MODERATE
[2018-03-21 09:12] LABS: VENOUS BLOOD GAS BASE EXCESS 0.5 mmol/L (0.0-2.0); VENOUS BLOOD GAS PCO2 44 mmHg (40-60); VENOUS BLOOD GAS PO2 29 mm/Hg (30-55); VENOUS BLOOD PH 7.38 (7.32-7.43)
[2018-03-21] MEDS ORDERED: Vancomycin 1 GM 1 GM/250 ML BAG IV STA (09:12)
[2018-03-21 09:13] LABS: LARGE PLATELETS PRESENT; OVALOCYTES SLIGHT; TOXIC GRANULATION PRESENT
[2018-03-21] MEDS ORDERED: Piperacillin/Tazobact 3.375 gm 100 ML IV STA (09:13)
[2018-03-21 09:14] LABS: TEARDROP CELLS SLIGHT
[2018-03-21] MEDS ORDERED: Piperacillin/Tazobact 3.375 gm 100 ML IVPB ONE (09:24)
--- NOTE | 2018-03-21 09:40 | CT ---
PROCEDURE: CT Abdomen and Pelvis with Oral contrast. HISTORY: Abdominal pain, coffee ground emesis COMPARISON: None. TECHNIQUE: Contiguous axial images of the abdomen and pelvis performed without oral or intravenous contrast. Coronal and Sagittal reformats generated. Radiation dose: Total exam DLP = 243.29 mGy-cm. This CT exam was performed using one or more of the following dose reduction techniques: Automated exposure control, adjustment of the mA and/or kV according to patient size, and/or use of iterative reconstruction technique. FINDINGS: LOWER THORAX: Heart size upper limits of normal. There is a small hiatal hernia with wall thickening of the distal esophagus likely due to protrusion gastric mucosa. Esophagitis or other intrinsic/ invasive lesion not excluded. Followup endoscopy may be prudent given this patient's current history of coffee-ground emesis. Bibasilar atelectasis with small right-sided effusion a trace left-sided effusion. LIVER: The liver is maegan upper limits of normal/ borderline enlarged measuring just over 18 cm although this could be due to a Lida's lobe. No obvious hepatic mass or collection. GALLBLADDER AND BILE DUCTS: Gallbladder physiologically distended. . Previously noted layering calculi not appreciated on this study PANCREAS: Unremarkable. No mass. No ductal dilatation. SPLEEN: There is a partially exophytic apparent proteinaceous cyst arising from the medial aspect of the splenic parenchyma that measures approximately 6.4 cm AP x 5.4 cm cc x 4.9 cm trans. Few peripheral wall calcifications are present ADRENALS: Indeterminate approximately 16 mm left adrenal nodule with Hounsfield units in the mid 20s. KIDNEYS AND URETERS: There is a 11 mm calculus upper pole collecting system left kidney. . Additionally, there is a small approximately 4.3 mm calculus of left left renal pelvis/ UPJ region with minimal dilatation of the left renal pelvis. . Additional calcification in the left renal pelvis may be vascular which measures approximately 4 mm. There is a partially exophytic 12.5 mm hyperdense mass lesion posterior upper pole right kidney which could represent a hyperdense cyst versus a solid mass. Followup ultrasound recommended to distinguish between solid versus cystic lesion. BLADDER: Urinary bladder incompletely distended which presumably in part accounts for thick-walled appearance. Correlation with urinalysis recommended to exclude cystitis. REPRODUCTIVE: Unremarkable. APPENDIX: Unremarkable. BOWEL: Evaluation of the bowel is limited due to the lack of oral contrast. There is asymmetric wall thickening of the stomach which could be due to peristalsis and incomplete distention however possibility of wall lesion should be considered given the patient's history of coffee-ground emesis. Followup endoscopy. There are several distended apparent loops of small bowel in the left mid abdomen which appear to extend into a parastomal hernia along with a portion of the descending colon. The possibility of a partial or intermittent obstruction cannot be excluded. Few diverticula seen along the stump of the sigmoid colon. Suspect a peripheral suture along the wall of the rectum possibly related to prior hemorrhoid surgery. PERITONEUM: Unremarkable. No fluid collection. No free air. LYMPH NODES: Unremarkable. No enlarged lymph nodes. VASCULATURE: Unremarkable. No aortic aneurysm. BONES: Multilevel degenerative spondylosis of the lower thoracic and lumbar spine. OTHER FINDINGS: None. IMPRESSION: Minor bibasilar atelectasis right greater than left with small right-sided effusion and suspected trace left effusion. Small hiatal hernia with wall thickening of the distal esophagus and asymmetric wall thickening of the stomach which could be due to peristalsis however endoscopy followup recommended to exclude wall lesion. Re- demonstrated is a large left lower quadrant parastomal hernia containing a portion of the large bowel and and what appears to be a loop or 2 of small bowel with localized dilatation of several adjacent loops of small bowel. The possibility of a partial or intermittent obstruction not excluded Cholelithiasis. Stable large splenic cyst. Borderline hepatomegaly. Left-sided nephrolithiasis as detailed above. Hyperdense cyst or possible solid mass right kidney. Followup ultrasound recommended. . Urinary bladder wall thickening likely due to underdistention however correlation with urinalysis recommended Indeterminate left adrenal nodule as above. Followup interval recommended to assess stability.
[2018-03-21] MEDS ORDERED: Vancomycin 1 gm/NS 200 ml 1 GM/200 ML BAG IVPB ONE (10:00)
[2018-03-21 10:37] LABS: SQUAMOUS EPITHIAL 1 /hpf (0-5); URINE BACTERIA OCC (<OCC); URINE BILIRUBIN NEGATIVE (NEGATIVE); URINE BLOOD 1+ (NEGATIVE); URINE CLARITY Hazy (Clear); URINE COLOR Amber (YELLOW); URINE GLUCOSE (UA) NORMAL (Normal); URINE LEUKOCYTE ESTERASE 3+ Leu/uL (Negative); URINE PROTEIN 1+ mg/dL (NEGATIVE); URINE UROBILINOGEN NORMAL mg/dL (0.2-1.0)
[2018-03-21] MEDS ORDERED: Sodium Chloride 0.9% 1,000 ML IV ONE (10:40)
[2018-03-21] MEDS ORDERED: Sodium Chloride 0.9% 1,000 ML ONE ×2 (11:48→13:27)
[2018-03-21 12:21] LABS: VENOUS BLOOD GAS BASE EXCESS -2.2 mmol/L (0.0-2.0); VENOUS BLOOD GAS PCO2 44 mmHg (40-60); VENOUS BLOOD GAS PO2 23 mm/Hg (30-55); VENOUS BLOOD PH 7.34 (7.32-7.43)
[2018-03-21] MEDS ORDERED: Piperacillin/Tazobact 3.375 GM in Sodium Chloride 100 ML IVPB SCH (13:30)
[2018-03-21] MEDS: Sodium Chloride 0.9% 1,000 ML IV SCH ×2 (13:30→22:57)
--- NOTE | 2018-03-21 16:18 | RAD ---
PROCEDURE: CHEST RADIOGRAPH, 1 VIEW HISTORY: Sepsis COMPARISON: Comparison chest 10/17/2017 . Study is slightly limited due to patient rotation to the right side FINDINGS: LUNGS: Minor bibasilar atelectasis. Right paratracheal density felt to represent great vessels due to patient rotation to the right PLEURA: No pneumothorax or pleural fluid seen. CARDIOVASCULAR: Normal. OSSEOUS STRUCTURES: No significant abnormalities. VISUALIZED UPPER ABDOMEN: Normal. OTHER FINDINGS: None. IMPRESSION: Minor bibasilar atelectasis. Right paratracheal density felt to represent great vessels due to patient rotation to the right
[2018-03-21] MEDS: Piperacillin/Tazobact 3.375 GM in Sodium Chloride 100 ML IVPB SCH (17:15)
[2018-03-21] MEDS ORDERED: Digoxin 125 mcg (0.125 mg) Tab PO STA (20:20)
[2018-03-21] MEDS ORDERED: Digoxin 125 mcg (0.125 mg) Tab PO ONE (22:00)
--- NOTE | 2018-03-21 23:28 | CP.PCM.HP ---
Past Patient History - Infectious Disease Hx of Infectious Diseases: None - Past Medical History & Family History Past Medical History?: Yes - Past Social History Smoking Status: Never Smoked - CARDIAC Hx Hypertension: Yes - PULMONARY Hx Respiratory Disorders: No - NEUROLOGICAL Hx Alzheimer's Disease: Yes Hx Dementia: Yes - HEENT Hx HEENT Problems: No Other/Comment: hard of hearing - RENAL Hx Chronic Kidney Disease: No - ENDOCRINE/METABOLIC Hx Endocrine Disorders: No - HEMATOLOGICAL/ONCOLOGICAL Hx Anemia: Yes - INTEGUMENTARY Hx Dermatological Problems: No - MUSCULOSKELETAL/RHEUMATOLOGICAL Hx Musculoskeletal Disorders: Yes Hx Falls: Yes - GASTROINTESTINAL Hx Gall Bladder Disease: Yes - GENITOURINARY/GYNECOLOGICAL Hx Genitourinary Disorders: No - PSYCHIATRIC Hx Substance Use: No - SURGICAL HISTORY Hx Surgeries: Yes Other/Comment: colon resection with colostomy - ANESTHESIA Hx Anesthesia: Yes Hx Anesthesia Reactions: No Hx Malignant Hyperthermia: No Meds Allergies/Adverse Reactions: Allergies Allergy/AdvReac Type Severity Reaction Status Date / Time No Known Allergies Allergy Verified 03/21/18 05:38 Results - Vital Signs Recent Vital Signs: Last Vital Signs Temp 97.9 F 03/21/18 15:50 Pulse 91 H 03/21/18 19:50 Resp 20 03/21/18 15:50 BP 93/58 L 03/21/18 15:50 Pulse Ox 91 L 03/21/18 20:59 - Labs Result Diagrams: 03/21/18 06:21 03/21/18 06:21 Labs: Laboratory Results - last 24 hr 03/21/18 03/21/18 03/21/18 06:21 06:21 06:21 WBC 34.2 H D RBC 5.40 H Hgb 11.4 Hct 36.2 MCV 67.0 L MCH 21.1 L MCHC 31.5 L RDW 19.0 H Plt Count 487 H MPV 8.3 Neut % (Auto) 88.5 H Lymph % (Auto) 7.4 L [place] % (Auto) 4.0 Eos % (Auto) 0.0 Baso % (Auto) 0.1 Neut # (Auto) 30.2 H Lymph # (Auto) 2.5 [place] # (Auto) 1.4 H Eos # (Auto) 0.0 Baso # (Auto) 0.0 Neutrophils % (Manual) 73 Band Neutrophils % 16 H* Lymphocytes % (Manual) 3 L Monocytes % (Manual) 6 Metamyelocytes % 1 H Myelocytes % 1 H Toxic Granulation Present Platelet Estimate Slightly increased H Large Platelets Present Hypochromasia (manual) Slight Poikilocytosis (manual Slight Anisocytosis (manual) Slight Microcytosis (manual) Moderate Macrocytosis (manual) Slight Tear Drop Cells Slight Ovalocytes Slight PT 12.3 H INR 1.1 APTT 32 pO2 VBG pH VBG pCO2 VBG HCO3 VBG Total CO2 VBG O2 Sat (Calc) VBG Base Excess VBG Potassium Glucose Lactate FiO2 Crit Value Called To Crit Value Called By Crit Value Read Back Blood Gas Notified Time Sodium 141 Potassium 5.4 H Chloride 98 Carbon Dioxide 24 Anion Gap 25 H BUN 51 H Creatinine 1.1 Est GFR ( Amer) 57 Est GFR (Non-Af Amer) 47 Random Glucose 184 H Calcium 10.2 Total Bilirubin 2.2 H AST 23 ALT 23 Alkaline Phosphatase 67 Total Protein 8.3 Albumin 4.4 Globulin 4.0 H Albumin/Globulin Ratio 1.1 Venous Blood Potassium Urine Color Urine Clarity Urine pH Ur Specific [place] Urine Protein Urine Glucose (UA) Urine Ketones Urine Blood Urine Nitrate Urine Bilirubin Urine Urobilinogen Ur Leukocyte Esterase Urine WBC (Auto) Urine RBC (Auto) Ur Squamous Epith Cells Urine Bacteria Blood Type Antibody Screen 03/21/18 03/21/18 03/21/18 07:07 09:05 10:18 WBC RBC Hgb Hct MCV MCH MCHC RDW Plt Count MPV Neut % (Auto) Lymph % (Auto) [place] % (Auto) Eos % (Auto) Baso % (Auto) Neut # (Auto) Lymph # (Auto) [place] # (Auto) Eos # (Auto) Baso # (Auto) Neutrophils % (Manual) Band Neutrophils % Lymphocytes % (Manual) Monocytes % (Manual) Metamyelocytes % Myelocytes % Toxic Granulation Platelet Estimate Large Platelets Hypochromasia (manual) Poikilocytosis (manual Anisocytosis (manual) Microcytosis (manual) Macrocytosis (manual) Tear Drop Cells Ovalocytes PT INR APTT pO2 29 L VBG pH 7.38 VBG pCO2 44 VBG HCO3 24.1 VBG Total CO2 27.4 VBG O2 Sat (Calc) 53.8 VBG Base Excess 0.5 VBG Potassium 4.8 Glucose 143 H Lactate 4.5 H* FiO2 Crit Value Called To Dr ibarra Crit Value Called By Rafi richards staff trainer Crit Value Read Back Y Blood Gas Notified Time 912 Sodium 139.0 Potassium Chloride 104.0 Carbon Dioxide Anion Gap BUN Creatinine Est GFR ( Amer) Est GFR (Non-Af Amer) Random Glucose Calcium Total Bilirubin AST ALT Alkaline Phosphatase Total Protein Albumin Globulin Albumin/Globulin Ratio Venous Blood Potassium 4.8 Urine Color [place] Urine Clarity Hazy Urine pH 5.0 Ur Specific [place] 1.017 Urine Protein 1+ H Urine Glucose (UA) Normal Urine Ketones Negative Urine Blood 1+ H Urine Nitrate Negative Urine Bilirubin Negative Urine Urobilinogen Normal Ur Leukocyte Esterase 3+ H Urine WBC (Auto) 362 H Urine RBC (Auto) 14 H Ur Squamous Epith Cells 1 Urine Bacteria Occ H Blood Type O POSITIVE Antibody Screen Negative 03/21/18 12:15 WBC RBC Hgb Hct MCV MCH MCHC RDW Plt Count MPV Neut % (Auto) Lymph % (Auto) [place] % (Auto) Eos % (Auto) Baso % (Auto) Neut # (Auto) Lymph # (Auto) [place] # (Auto) Eos # (Auto) Baso # (Auto) Neutrophils % (Manual) Band Neutrophils % Lymphocytes % (Manual) Monocytes % (Manual) Metamyelocytes % Myelocytes % Toxic Granulation Platelet Estimate Large Platelets Hypochromasia (manual) Poikilocytosis (manual Anisocytosis (manual) Microcytosis (manual) Macrocytosis (manual) Tear Drop Cells Ovalocytes PT INR APTT pO2 23 L VBG pH 7.34 VBG pCO2 44 VBG HCO3 21.5 VBG Total CO2 25.1 VBG O2 Sat (Calc) 39.1 L VBG Base Excess -2.2 L VBG Potassium 4.0 Glucose 112 H Lactate 3.4 H FiO2 21.0 Crit Value Called To Crit Value Called By Crit Value Read Back Blood Gas Notified Time Sodium 141.0 Potassium Chloride 109.0 H Carbon Dioxide Anion Gap BUN Creatinine Est GFR ( Amer) Est GFR (Non-Af Amer) Random Glucose Calcium Total Bilirubin AST ALT Alkaline Phosphatase Total Protein Albumin Globulin Albumin/Globulin Ratio Venous Blood Potassium 4.0 Urine Color Urine Clarity Urine pH Ur Specific [place] Urine Protein Urine Glucose (UA) Urine Ketones Urine Blood Urine Nitrate Urine Bilirubin Urine Urobilinogen Ur Leukocyte Esterase Urine WBC (Auto) Urine RBC (Auto) Ur Squamous Epith Cells Urine Bacteria Blood Type Antibody Screen
[2018-03-22] MEDS: Piperacillin/Tazobact 3.375 GM in Sodium Chloride 100 ML IVPB SCH ×3 (02:18→17:56)
[2018-03-22] MEDS: Sodium Chloride 0.9% 1,000 ML IV SCH ×4 (02:20→17:57)
--- NOTE | 2018-03-22 06:07 | CP.PCM.CON ---
History of Present Illness - History of Present Illness History of Present Illness: General Surgery Consult [facility] Dr. Vann This is a pleasantly demented 87F who was unable to provide a medical history or an HPI. she presented from [facility] due to coffee ground emesis. 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 At this time there is stool output from the stoma and the patient denies any discomfort. She also denies and ches pain, SOB, nausea vomiting or diarrhea. PMH: HTN, Anemia, colostomy (malignancy?) PSH: Colostomy ALL: Unknown Social: Denies Review of Systems - Review of Systems Systems not reviewed;Unavailable: Dementia Past Patient History - Infectious Disease Hx of Infectious Diseases: None - Past Medical History & Family History Past Medical History?: Yes - Past Social History Smoking Status: Never Smoked - CARDIAC Hx Hypertension: Yes - PULMONARY Hx Respiratory Disorders: No - NEUROLOGICAL Hx Alzheimer's Disease: Yes Hx Dementia: Yes - HEENT Hx HEENT Problems: No Other/Comment: hard of hearing - RENAL Hx Chronic Kidney Disease: No - ENDOCRINE/METABOLIC Hx Endocrine Disorders: No - HEMATOLOGICAL/ONCOLOGICAL Hx Anemia: Yes - INTEGUMENTARY Hx Dermatological Problems: No - MUSCULOSKELETAL/RHEUMATOLOGICAL Hx Musculoskeletal Disorders: Yes Hx Falls: Yes - GASTROINTESTINAL Hx Gall Bladder Disease: Yes - GENITOURINARY/GYNECOLOGICAL Hx Genitourinary Disorders: No - PSYCHIATRIC Hx Substance Use: No - SURGICAL HISTORY Hx Surgeries: Yes Other/Comment: colon resection with colostomy - ANESTHESIA Hx Anesthesia: Yes Hx Anesthesia Reactions: No Hx Malignant Hyperthermia: No Meds Allergies/Adverse Reactions: Allergies Allergy/AdvReac Type Severity Reaction Status Date / Time No Known Allergies Allergy Verified 03/21/18 05:38 - Medications Medications: Current Medications Acetaminophen (Tylenol 325mg Tab) 650 mg PO Q4H PRN PRN Reason: Temp >100.4 Donepezil HCl (Aricept) 5 mg PO HS YAN Last Admin: 03/21/18 22:37 Dose: 5 mg Enoxaparin Sodium (Lovenox) 30 mg SC DAILY YAN Epoetin Jroje (Procrit) 10,000 unit SC TUTH YAN Famotidine (Pepcid) 20 mg IVP Q12 YAN Sodium Chloride (Sodium Chloride 0.9%) 1,000 mls @ 100 mls/hr IV .Q10H YAN Last Admin: 03/22/18 02:20 Dose: 100 mls/hr Piperacillin Sod/Tazobactam (Sod 3.375 gm/ Sodium Chloride) 100 mls @ 200 mls/ hr IVPB Q8H [facility] PRN Reason: Protocol Last Admin: 03/22/18 02:18 Dose: 200 mls/hr Physical Exam - Constitutional Appears: Non-toxic, No Acute Distress - Head Exam Head Exam: ATRAUMATIC, NORMOCEPHALIC - Eye Exam Eye Exam: EOMI, Normal appearance - ENT Exam ENT Exam: Mucous Membranes Moist - Respiratory Exam Respiratory Exam: NORMAL BREATHING PATTERN - Cardiovascular Exam Cardiovascular Exam: REGULAR RHYTHM - GI/Abdominal Exam Additional comments: Stoma in left lower quadrant with non reduicible hernia that is non tender, abdomen soft and non tender throughout, non distended. No skin changes overlayin the abdomen. - Rectal Exam Additional comments: Rectum present - Neurological Exam Neurological exam: Alert, Oriented x3 - Psychiatric Exam Psychiatric exam: Normal Affect, Normal Mood - Skin Skin Exam: Dry, Intact Results - Vital Signs Recent Vital Signs: Last Vital Signs Temp 98.9 F 03/21/18 23:25 Pulse 80 03/22/18 03:14 Resp 20 03/21/18 23:25 BP 110/54 L 03/21/18 23:25 Pulse Ox 96 03/21/18 23:25 - Labs Result Diagrams: 03/21/18 06:21 03/21/18 06:21 Labs: Laboratory Results - last 24 hr 03/21/18 03/21/18 03/21/18 06:21 06:21 06:21 WBC 34.2 H D RBC 5.40 H Hgb 11.4 Hct 36.2 MCV 67.0 L MCH 21.1 L MCHC 31.5 L RDW 19.0 H Plt Count 487 H MPV 8.3 Neut % (Auto) 88.5 H Lymph % (Auto) 7.4 L [place] % (Auto) 4.0 Eos % (Auto) 0.0 Baso % (Auto) 0.1 Neut # (Auto) 30.2 H Lymph # (Auto) 2.5 [place] # (Auto) 1.4 H Eos # (Auto) 0.0 Baso # (Auto) 0.0 Neutrophils % (Manual) 73 Band Neutrophils % 16 H* Lymphocytes % (Manual) 3 L Monocytes % (Manual) 6 Metamyelocytes % 1 H Myelocytes % 1 H Toxic Granulation Present Platelet Estimate Slightly increased H Large Platelets Present Hypochromasia (manual) Slight Poikilocytosis (manual Slight Anisocytosis (manual) Slight Microcytosis (manual) Moderate Macrocytosis (manual) Slight Tear Drop Cells Slight Ovalocytes Slight PT 12.3 H INR 1.1 APTT 32 pO2 VBG pH VBG pCO2 VBG HCO3 VBG Total CO2 VBG O2 Sat (Calc) VBG Base Excess VBG Potassium Glucose Lactate FiO2 Crit Value Called To Crit Value Called By Crit Value Read Back Blood Gas Notified Time Sodium 141 Potassium 5.4 H Chloride 98 Carbon Dioxide 24 Anion Gap 25 H BUN 51 H Creatinine 1.1 Est GFR ( Amer) 57 Est GFR (Non-Af Amer) 47 Random Glucose 184 H Calcium 10.2 Total Bilirubin 2.2 H AST 23 ALT 23 Alkaline Phosphatase 67 Total Protein 8.3 Albumin 4.4 Globulin 4.0 H Albumin/Globulin Ratio 1.1 Venous Blood Potassium Urine Color Urine Clarity Urine pH Ur Specific [place] Urine Protein Urine Glucose (UA) Urine Ketones Urine Blood Urine Nitrate Urine Bilirubin Urine Urobilinogen Ur Leukocyte Esterase Urine WBC (Auto) Urine RBC (Auto) Ur Squamous Epith Cells Urine Bacteria Blood Type Antibody Screen 03/21/18 03/21/18 03/21/18 07:07 09:05 10:18 WBC RBC Hgb Hct MCV MCH MCHC RDW Plt Count MPV Neut % (Auto) Lymph % (Auto) [place] % (Auto) Eos % (Auto) Baso % (Auto) Neut # (Auto) Lymph # (Auto) [place] # (Auto) Eos # (Auto) Baso # (Auto) Neutrophils % (Manual) Band Neutrophils % Lymphocytes % (Manual) Monocytes % (Manual) Metamyelocytes % Myelocytes % Toxic Granulation Platelet Estimate Large Platelets Hypochromasia (manual) Poikilocytosis (manual Anisocytosis (manual) Microcytosis (manual) Macrocytosis (manual) Tear Drop Cells Ovalocytes PT INR APTT pO2 29 L VBG pH 7.38 VBG pCO2 44 VBG HCO3 24.1 VBG Total CO2 27.4 VBG O2 Sat (Calc) 53.8 VBG Base Excess 0.5 VBG Potassium 4.8 Glucose 143 H Lactate 4.5 H* FiO2 Crit Value Called To Dr stacey Crit Value Called By Rafi richards compress machine operator Crit Value Read Back Y Blood Gas Notified Time 912 Sodium 139.0 Potassium Chloride 104.0 Carbon Dioxide Anion Gap BUN Creatinine Est GFR ( Amer) Est GFR (Non-Af Amer) Random Glucose Calcium Total Bilirubin AST ALT Alkaline Phosphatase Total Protein Albumin Globulin Albumin/Globulin Ratio Venous Blood Potassium 4.8 Urine Color [place]ova Urine Clarity Hazy Urine pH 5.0 Ur Specific [place] 1.017 Urine Protein 1+ H Urine Glucose (UA) Normal Urine Ketones Negative Urine Blood 1+ H Urine Nitrate Negative Urine Bilirubin Negative Urine Urobilinogen Normal Ur Leukocyte Esterase 3+ H Urine WBC (Auto) 362 H Urine RBC (Auto) 14 H Ur Squamous Epith Cells 1 Urine Bacteria Occ H Blood Type O POSITIVE Antibody Screen Negative 03/21/18 12:15 WBC RBC Hgb Hct MCV MCH MCHC RDW Plt Count MPV Neut % (Auto) Lymph % (Auto) [place] % (Auto) Eos % (Auto) Baso % (Auto) Neut # (Auto) Lymph # (Auto) [place] # (Auto) Eos # (Auto) Baso # (Auto) Neutrophils % (Manual) Band Neutrophils % Lymphocytes % (Manual) Monocytes % (Manual) Metamyelocytes % Myelocytes % Toxic Granulation Platelet Estimate Large Platelets Hypochromasia (manual) Poikilocytosis (manual Anisocytosis (manual) Microcytosis (manual) Macrocytosis (manual) Tear Drop Cells Ovalocytes PT INR APTT pO2 23 L VBG pH 7.34 VBG pCO2 44 VBG HCO3 21.5 VBG Total CO2 25.1 VBG O2 Sat (Calc) 39.1 L VBG Base Excess -2.2 L VBG Potassium 4.0 Glucose 112 H Lactate 3.4 H FiO2 21.0 Crit Value Called To Crit Value Called By Crit Value Read Back Blood Gas Notified Time Sodium 141.0 Potassium Chloride 109.0 H Carbon Dioxide Anion Gap BUN Creatinine Est GFR ( Amer) Est GFR (Non-Af Amer) Random Glucose Calcium Total Bilirubin AST ALT Alkaline Phosphatase Total Protein Albumin Globulin Albumin/Globulin Ratio Venous Blood Potassium 4.0 Urine Color Urine Clarity Urine pH Ur Specific [place] Urine Protein Urine Glucose (UA) Urine Ketones Urine Blood Urine Nitrate Urine Bilirubin Urine Urobilinogen Ur Leukocyte Esterase Urine WBC (Auto) Urine RBC (Auto) Ur Squamous Epith Cells Urine Bacteria Blood Type Antibody Screen Assessment & Plan - Assessment and Plan (Free Text) Assessment: 87F with non reducible hernia No signs of bowel strangulation in hernia Recommend continued medical managment No acute surgical intervnetion at this time D/W Dr. Soo Ambrosio PGY3
[2018-03-22] MEDS: Enoxaparin 30 mg Syringe SC SCH (10:45)
[2018-03-22 11:18] LABS: BASO # 0.1 K/uL (0.0-0.2); BASO % 0.5 % (0.0-2.0); EOS % 0.1 % (0.0-4.0); LYMPH # 1.3 K/uL (1.0-4.3); LYMPH % 6.4 % (20.0-40.0); MEAN CELL VOLUME 67.3 fL (81.0-99.0); MEAN CORPUSCULAR HGB CONC 31.3 g/dL (33.0-37.0); MEAN PLATELET VOLUME 8.2 fL (7.2-11.7); MONO # 1.2 K/uL (0.0-0.8); MONO % 5.9 % (0.0-10.0); NEUT # 17.7 K/uL (1.8-7.0); NEUT % 87.1 % (50.0-75.0); RBC 3.59 Mil/uL (3.80-5.20); RED CELL DISTRIBUTION WIDTH 18.2 % (11.5-14.5); WHITE BLOOD COUNT 20.3 K/uL (4.8-10.8)
[2018-03-22 11:36] LABS: HEMOGLOBIN 7.6 g/dL (11.0-16.0); PLATELET COUNT 295 K/uL (130-400)
[2018-03-22 11:39] LABS: BLOOD UREA NITROGEN 31 mg/dL (7-17); CALCIUM 8.5 mg/dl (8.6-10.4); GFR AFRICAN-AMERICAN > 60; GFR NON-AFRICAN AMERICAN > 60
[2018-03-22 12:29] LABS: LYMPHOCYTE 5 % (20-40); MONOCYTE 6 % (0-10); TOTAL CELLS COUNTED 100
[2018-03-22 12:30] LABS: ANISOCYTOSIS SLIGHT; BANDS 6 % (0-2); NEUTROPHIL 83 % (50-75); PLATELET ESTIMATE NORMAL (NORMAL); POIKILOCYTOSIS SLIGHT
[2018-03-22 12:31] LABS: HYPOCHROMIC SLIGHT; MICROCYTOSIS SLIGHT; POLYCHROMIC SLIGHT
[2018-03-22 12:32] LABS: OVALOCYTES SLIGHT; SCHISTOCYTES SLIGHT; TEARDROP CELLS SLIGHT
--- NOTE | 2018-03-22 14:29 | PN ---
DATE: 03/22/2018 LOCATION: 651, bed A. SUBJECTIVE: This is an 87-year-old female, initially seen in consultation on 03/21/2018 as requested by the admitting medical team, reexamined again today without significant clinical changes or reported active bleeding with a complaint of abdominal pain on and off. The entire chart is reviewed including but not limited to the most recent lab and radiology study results, current and the previous medication list, current and the previous medical events. The initial lab results showed leukocytosis of 34.2 with low indices and thrombocytopenia. Today's lab showed abnormal ABGs. The rest of the lab today is still pending, and the patient is still having increased BUN but normal creatinine with total bilirubin 2.2. Official report of CAT scan of the abdomen and pelvis seen. PHYSICAL EXAMINATION: GENERAL: An 87-year-old female. VITAL SIGNS: Afebrile with pulse of 82, respiratory rate 20 to 22, blood pressure 120/62. HEENT: Showed pale, dry oral mucous membranes, mildly icteric sclerae. LUNGS: A few scattered crepitation. Decreased air entry at bases. HEART: Positive S1 and S2. ABDOMEN: Soft. Bowel sounds are present with mild generalized tenderness. No mass or organomegaly. No rebound tenderness or guarding. WRAPPING MACHINE TENDER: It has to be mentioned that no significant new neurological deficits, sensory or motor. EXTREMITIES: Lower extremity edematous changes. No clubbing or cyanosis. IMPRESSION: 1. Hematemesis with abnormal CAT scan of the abdomen with possible esophageal lesion versus esophagitis. 2. Multiple past medical history including hypertension, cholelithiasis, dementia with status post colostomy details of which are unclear. 3. Alzheimer's disease. 4. History of anemia. 5. Electrolyte imbalance with renal insufficiency. 6. Leukocytosis of unclear etiology that could be secondary to acute cholelithiasis. SUGGESTIONS: 1. Agree with your plan. 2. Endoscopic evaluation of the upper GI tract after obtaining consent from the family. 3. Proton pump inhibitors. 4. Zofran IV. 5. Further recommendation to follow and surgical reevaluation to be discussed with the surgical dressing maker on the case. Jessica Navas MD [facility] # [id number]
[2018-03-22 16:40] LABS: HEMOGLOBIN 8.2 g/dL (11.0-16.0); MEAN CELL VOLUME 67.5 fL (81.0-99.0); MEAN CORPUSCULAR HEMOGLOBIN 20.4 pg (27.0-31.0); MEAN CORPUSCULAR HGB CONC 30.2 g/dL (33.0-37.0); MEAN PLATELET VOLUME 8.4 fL (7.2-11.7); RBC 4.02 Mil/uL (3.80-5.20); RED CELL DISTRIBUTION WIDTH 18.6 % (11.5-14.5); WHITE BLOOD COUNT 21.1 K/uL (4.8-10.8)
[2018-03-22 16:57] LABS: BLOOD UREA NITROGEN 29 mg/dL (7-17); CALCIUM 8.7 mg/dl (8.6-10.4); GFR AFRICAN-AMERICAN > 60; GFR NON-AFRICAN AMERICAN > 60
--- NOTE | 2018-03-22 22:35 | CON ---
DATE: 03/22/2018 CARDIOLOGY CONSULTATION ATTENDING PHYSICIAN: Thuan Banda MD HISTORY OF PRESENT ILLNESS: This is an 87-year-old female with a history of dementia from assisted who was admitted due to reported coffee-ground emesis. The patient with baseline history of dementia, unable to provide much history herself. The information was obtained from the chart. Per documentation, the patient presented to [facility] with report of coffee-ground emesis, but has been asymptomatic since then. While in the emergency room, she was noted to be in rapid atrial fibrillation, received single dose of digoxin with return of spontaneous normal sinus rhythm. At present, the patient denies any chest pain, palpitations, diaphoresis, dyspnea, nausea, vomiting, or abdominal pain. PAST MEDICAL HISTORY: Hypertension and anemia. PAST SURGICAL HISTORY: Colostomy. REVIEW OF SYSTEMS: Unable to obtain other than what was provided in HPI. SOCIAL HISTORY: Unknown. FAMILY HISTORY: Unknown. PHYSICAL EXAMINATION: VITAL SIGNS: Temperature 98.1, heart rate 80, respirations 20, blood pressure 128/65. GENERAL: Alert and oriented x1, self. Elderly female in no apparent distress. HEAD AND NECK: Normocephalic and atraumatic. No JVD. CHEST: Clear to auscultation bilaterally. HEART: S1, S2. . No murmurs, rubs or gallops appreciated. ABDOMEN: Soft. Nontender. Colostomy is in place. EXTREMITIES: No edema or clubbing. FURNITURE DECALS INSPECTOR: Cranial nerves II through XII grossly intact. SKIN: She has no lesions. LABORATORY EVALUATION: Hemoglobin 11, hematocrit 36.2, platelets 487. BUN 51, creatinine 1.1. TSH 4.8. EKG #1, my review shows atrial fibrillation with rapid ventricular response. EKG #2, my review shows normal sinus rhythm. ASSESSMENT AND PLAN: 1. Paroxysmal atrial fibrillation, spontaneously converted to normal sinus rhythm. The patient with history of hypertension, age greater than 65 and female sex with CHADS VASc score of at least 3. It was noted that the patient had a previous admission, recently, with gastrointestinal bleed and esophagogastroduodenoscopy showing gastritis and ulcerations. 2. Hypertension, currently controlled. 3. Chronic anemia. PLAN: 1. Continue with current management as per primary team. 2. We will not anticoagulate due to recent history of upper GI bleed and EGD showing gastritis/ulcers. 3. A 2-D echocardiogram. 4. Further recommendation based upon the results of the echocardiogram. Theodore Perez MD
--- NOTE | 2018-03-22 23:39 | CP.PCM.PN ---
Objective - Vital Signs/Intake and Output Vital Signs (last 24 hours): Temp Pulse Resp BP Pulse Ox 99.9 F H 83 18 147/70 94 L 03/22/18 22:59 03/22/18 22:00 03/22/18 15:00 03/22/18 22:00 03/22/18 15:00 Intake and Output: 03/22/18 03/23/18 18:59 06:59 Intake Total 800 920 Balance 800 920 - Medications Medications: Current Medications Acetaminophen (Tylenol 325mg Tab) 650 mg PO Q4H PRN PRN Reason: Temp >100.4 Last Admin: 03/22/18 22:59 Dose: 650 mg Donepezil HCl (Aricept) 5 mg PO HS YAN Last Admin: 03/22/18 21:35 Dose: 5 mg Enoxaparin Sodium (Lovenox) 30 mg SC DAILY YAN Last Admin: 03/22/18 10:45 Dose: 30 mg Famotidine (Pepcid) 20 mg IVP DAILY [facility] Last Admin: 03/22/18 10:46 Dose: 20 mg Sodium Chloride (Sodium Chloride 0.9%) 1,000 mls @ 100 mls/hr IV .Q10H YAN Last Admin: 03/22/18 17:57 Dose: Not Given Piperacillin Sod/Tazobactam (Sod 3.375 gm/ Sodium Chloride) 100 mls @ 200 mls/ hr IVPB Q8H YAN PRN Reason: Protocol Last Admin: 03/22/18 17:56 Dose: 200 mls/hr - Labs Labs: 03/22/18 16:34 03/22/18 16:34 PT 12.3 SECONDS (9.7-12.2) H 03/21/18 06:21 INR 1.1 03/21/18 06:21 APTT 32 SECONDS (21-34) 03/21/18 06:21
[2018-03-23] MEDS: Piperacillin/Tazobact 3.375 GM in Sodium Chloride 100 ML IVPB SCH ×3 (00:40→17:09)
[2018-03-23] MEDS: Sodium Chloride 0.9% 1,000 ML IV SCH ×2 (04:30→05:43)
--- NOTE | 2018-03-23 04:48 | PN ---
DATE: 03/22/2018 SUBJECTIVE: The patient is more alert today. Low grade fever of 99.9. Hemoglobin dropped from 11.4 to 7.6 to 8.2. The patient is mostly nonverbal. PHYSICAL EXAMINATION: LUNGS: Bilaterally clear. CARDIOVASCULAR SYSTEM: S1 and S2 are regular. No heave. No thrill. ABDOMEN: Soft, nontender. Bowel sounds are positive. ASSESSMENT: 1. Gastrointestinal bleeding, most likely ulcerative gastritis. 2. Urinary tract infection, rule out septicemia. 3. Hypertension. 4. Alzheimer's. PLAN: Antibiotics. Blood transfusion. GI evaluation. Monitor the patient. Thuan Banda MD
[2018-03-23] MEDS ORDERED: Etomidate 20 mg/10ml Inj IV ONE (09:43)
--- NOTE | 2018-03-23 09:58 | HP ---
CHIEF COMPLAINT: Abdominal pain. HISTORY OF PRESENT ILLNESS: This is a 89-year-old detention resident with history of Alzheimer's, hypertension, and the patient lives in a detention, and she is being followed up by her primary doctor, and the patient was noted to have coffee-ground emesis this morning at the detention, large quantity. The patient has a colostomy bag in place. According to detention staff, the colostomy bag output is low. The patient's urine output is low, and the patient was seen last in October in emergency room with GI bleed. At that time, the GI workup showed gastric ulcer and gastritis. The patient, other than that, is calm, quiet, she prefers to keep her eyes closed. She denies any nausea or vomiting. She has rapid AFib today, but it was asymptomatic. Her blood pressure is on the lower side, but she has high WBC count, but she is afebrile at the moment. There is no history of cough, sore throat, or runny nose. There is no history of fall at the detention or seizure-like activity. There is no history of tingling, numbness, or paresthesia. Further details unobtainable because of patient's mental status. PAST MEDICAL HISTORY: Alzheimer's, hypertension, hyperlipidemia, PEG tube, anemia, gallbladder disease, CKD. She has a colostomy in place from prior surgery. SOCIAL HISTORY: She is a nonsmoker, non-ETOH user. She lives in the detention. CURRENT MEDICATIONS: At the detention are Norvasc, Cozaar, Procrit, Aricept, Maalox, Tylenol. PHYSICAL EXAMINATION: GENERAL: An elderly female. She is not in distress. VITAL SIGNS: Blood pressure 92/58, pulse 176 and irregularly irregular, respiratory rate 20, temperature 97.9. SKIN: Dry. Poor turgor, senile. No bruises. No purpura. HEENT: Atraumatic, normocephalic. Negative pallor. Negative jaundice. Extraocular movements are intact. NECK: Supple. Flat neck veins. No JVD. CHEST WALL: Bilateral symmetrical expansion. LUNGS: Bilaterally clear. No rale or rhonchi. CVS: S1, S2 irregularly irregular. 2/6 ejection systolic murmur at the apex. ABDOMEN: Distended, tender. Poor output from the colostomy bag. RECTAL: No masses. EXTREMITIES: No clubbing, cyanosis, or edema. MONUMENTAL STONEMASON: The patient is awake, alert. The patient is forgetful, moves all extremities. ASSESSMENT: 1. Septic shock. 2. Upper gastrointestinal bleed. Rule out peptic gastric ulcer versus gastritis. 3. Dehydration with prerenal azotemia. 4. New onset atrial fibrillation. PLAN: Detailed orders written. Seen and examined. The patient's sister is on the bedside and explained all the working diagnoses, medications, and plan of care. Thuan Banda MD
[2018-03-23] MEDS: Enoxaparin 30 mg Syringe SC SCH (10:00)
[2018-03-23] MEDS ORDERED: Sodium Chloride 0.9% 1,000 ML IV ONE (10:05)
--- NOTE | 2018-03-23 10:07 | CON ---
DATE: 03/21/[address] Jessica Navas to Dr. Thuan Banda. I have called for GI consultation by the admitting MD. The patient is seen and fully examined on 03/21/2018 as requested by the admitting medical staff. The entire chart is reviewed including, but not limited to most recent lab and radiology study results, current and previous medication list, current and previous medical events, allergies to medication list as well as all the available current and the previous medical record. HISTORY OF PRESENT ILLNESS: This is an 87-year-old female with reported history of questionable dementia as per the record, was sent from a group home to the emergency room due to recurrent episode of nausea and vomiting with coffee-ground material, with reported abdominal pain and postprandial abdominal distention as per the group home staff. The patient had a recent GI workup due to GI blood loss and negative of gastric ulcer and gastritis. PAST MEDICAL HISTORY: Including but not limited to hypertension, peptic ulcer disease, Alzheimer disease, reported questionable dementia, gallbladder disorder. The patient has colostomy of unclear etiology at this time. FAMILY HISTORY: Unknown. SOCIAL HISTORY: No recent known history of cigarette smoking or alcohol intake. The patient is a resident of a group home. CURRENT MEDICATIONS: Both admission medication list reviewed. ALLERGIES TO MEDICATIONS: UNCLEAR. LABORATORY DATA: After being admitted to the hospital; however, the patient was found to have leukocytosis of 43.2 or thrombocytosis of 487, but normal hemoglobin and hematocrit with blood glucose level of 184, BUN , creatinine normal, potassium 5.4. DIAGNOSTIC DATA: Last colonoscopy done as per record is 11/07/2017 and the patient at that time had blood transfusion due to her anemia. As per the report, abdominal and pelvic CAT scan was done indicative of small right-sided effusion with possible atelectasis and small hiatus hernia with thickened wall of the distal esophagus as well as asymmetric wall thickening of the stomach. Upper endoscopy was suggested. 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 Evidence of cholelithiasis with stable large splenic cyst and borderline hepatomegaly is seen with left-sided nephrolithiasis. PHYSICAL EXAMINATION: GENERAL: An 87-year-old female. VITAL SIGNS: Pulse of 110, respiratory rate 20 to 22, blood pressure 100/56. HEENT: Showed pale dry oral mucoid membrane. Nonicteric sclerae. LYMPH NODES: No lymphadenitis or lymphadenopathy. LUNGS: She has got crepitation with decreased air entry at bases. HEART: Positive S1 and S2. ABDOMEN: Soft with mild generalized tenderness. No masses or organomegaly. No rebound tenderness or guarding. RECTAL: The patient refused. EXTREMITIES: Without significant clubbing, cyanosis, or edema. NEUROLOGIC: No reported new neurological deficit, sensory or motor. No reported focal deficits. IMPRESSION: 1. Upper gastrointestinal tract bleeding with abnormal CAT scan of the abdomen and pelvis to rule out esophageal lesion, to rule out recurrent bleeding gastric ulcer. 2. Abnormal CAT scan of the abdomen and pelvis with cholelithiasis and nephrolithiasis. 3. Past medical history as mentioned above. 4. Leukocytosis that could be secondary to acute cholecystitis versus possible cystitis with nephritis. SUGGESTION: 1. Agree with your plan. 2. IV antibiotics. 3. Guaiac of the stool daily. 4. Keep the patient n.p.o. with peripheral hyperalimentation. Small dose of Reglan IV p.r.n. Repeat endoscopic evaluation of the upper GI tract when the patient is more stable clinically and after obtaining a legal consent from the legal guardian. 6. Repeat cancer markers including CEA and CA-125. 7. Further recommendation to follow. Thank you for letting me to participate in your patient's case management. Jessica Navas MD
[2018-03-23] MEDS ORDERED: Metoprolol 1 mg/ml Inj IVP ONE (10:31)
--- NOTE | 2018-03-23 11:14 | RAD ---
HISTORY: possible aspiration COMPARISON: Chest radiograph dated 03/21/2018. FINDINGS: LUNGS: Stable chronic prominence of the bilateral interstitial markings with superimposed pulmonary vascular congestion. Bibasilar atelectasis. PLEURA: Small bilateral pleural effusions. No pneumothorax apparent. CARDIOVASCULAR: Atherosclerotic aortic calcifications. Cardiomediastinal silhouette stably prominent. OSSEOUS STRUCTURES: Unchanged. VISUALIZED UPPER ABDOMEN: Normal. OTHER FINDINGS: None. IMPRESSION: Pulmonary vascular congestion. Bibasilar atelectasis. Small bilateral pleural effusions.
--- NOTE | 2018-03-23 11:42 | CP.PCM.PCO ---
Assessment & Plan - Assessment and Plan (Free Text) Assessment: Pt is an 87yo f ho dementia, htn, and afib presented with coffee ground emesis on 03/21/18. Pt underwent EGD and had bilious emesis. Oral suction + NRB used. Pt taken to PACU for monitoring. CXR showed pulmonary congestion and atelectasis. VS in pacu should AFib wiith RVR. Metoprolol 2.5mg given with decrease of hr from 160 to 120-130's. Spoke to Dr. grijalva. AT this time, cardizem 10mg IV ordered and pt will continue to be monitored in telemetry.
[2018-03-23] MEDS ORDERED: Digoxin 500 mcg/2ml (0.5 mg/2ml) Inj IVP ONE (16:28)
[2018-03-23 16:53] LABS: VENOUS BLOOD GAS BASE EXCESS -4.5 mmol/L (0.0-2.0); VENOUS BLOOD GAS PCO2 31 mmHg (40-60); VENOUS BLOOD GAS PO2 34 mm/Hg (30-55)
[2018-03-23 16:59] VITALS: PULSE 130
[2018-03-23 17:05] LABS: BASO # 0.1 K/uL (0.0-0.2); BASO % 0.3 % (0.0-2.0); LYMPH # 0.8 K/uL (1.0-4.3); LYMPH % 2.7 % (20.0-40.0); MEAN CELL VOLUME 69.1 fL (81.0-99.0); MEAN CORPUSCULAR HGB CONC 31.9 g/dL (33.0-37.0); MEAN PLATELET VOLUME 7.9 fL (7.2-11.7); MONO # 1.4 K/uL (0.0-0.8); NEUT # 26.3 K/uL (1.8-7.0); PLATELET COUNT 399 K/uL (130-400); RBC 5.07 Mil/uL (3.80-5.20); RED CELL DISTRIBUTION WIDTH 19.9 % (11.5-14.5); WHITE BLOOD COUNT 28.6 K/uL (4.8-10.8)
[2018-03-23 17:09] LABS: HEMOGLOBIN 11.2 g/dL (11.0-16.0)
[2018-03-23 18:07] LABS: BANDS 3 % (0-2); LYMPHOCYTE 1 % (20-40); MONOCYTE 2 % (0-10); NEUTROPHIL 94 % (50-75); TOTAL CELLS COUNTED 100
[2018-03-23 18:08] LABS: ANISOCYTOSIS SLIGHT; HYPOCHROMIC MODERATE; MICROCYTOSIS SLIGHT; PLATELET ESTIMATE NORMAL (NORMAL)
[2018-03-23 18:09] LABS: OVALOCYTES SLIGHT; POLYCHROMIC SLIGHT
[2018-03-23] MEDS: Pantoprazole 40 mg EC Tab PO SCH (18:19)
--- NOTE | 2018-03-23 18:22 | CP.PCM.PN ---
Subjective - Date & Time of Evaluation Date of Evaluation: 03/23/18 Time of Evaluation: 16:30 - Subjective Subjective: HOUSE RESIDENT NOTE House doctor called at 1625. Nursing called for hypotension and tachycardia. Patient found lying in bed awake, alert, oriented x2. Vitals were repeated. T 98.6 BP 108/66 HR 154 O2 sat 89% at 4L on nasal cannula. Patient complained of palpitations. 10mg IVP of cardizem given. Vitals rechecked; patient HR labile 120-150bpm. Dig 0.5mcg IVP given. HR decreased but remained elevated in the 110s. Call placed to Dr. Burnham who recommended Cardizem drip 125mg @ 5mg/hr.- started. VBG collected. At vitals recheck 45min later, HR decreased to 115. Cardizem drip increased to 10mg/hr. CBC and CMP ordered. Troponin ordered, came back 0.180. Dr. Burnham will consider raising the Lopressor from 25 to 50 tomorrow after his exam. Call placed to PMD, Dr. Banda. Unable to reach, message left. Denies chest pain, SOB, wheezing, abdominal pain, diaphoresis, nausea, vomiting. Objective: General: Confused, oriented x2 CV: tachycardia, irregularly irregular, S1 S2 present Pulm: CTAB, no rhonchi, rales, wheezes Extremities: Full ROM, peripheral pulses 3+ bilaterally (radial, PT, DP). IV access in both arms. Bruising on left antecubital. GI: bowel sounds x4 quadrants, soft, nontender, non distended. Colostomy bag in place, area non-erythematous, non-edematous. Assessment and Plan: 1) Afib with RVR Cardizem IVP, digoxin IVP both given with no improvement. Cardizem drip started at 5, increased to 10 after vitals recheck. Repeat EKG tachycardic 136, Afib with RVR, no ST changes Cardio on case, Dr. Burnham - help appreciated, will adjust medications as needs tomorrow PMD, Dr. Banda, called placed and message left, made aware No CP, ELVI came back 0.180. 2) Elevated Troponin ELVI @ 1700: 0.180. EKG tachycardic 136, Afib with RVR, no ST changes Repeat ROMIs and EKGs at 2300 and 0500. Objective - Vital Signs/Intake and Output Vital Signs (last 24 hours): Temp Pulse Resp BP Pulse Ox 99.0 F 115 H 20 154/80 H 95 03/23/18 15:56 03/23/18 16:32 03/23/18 16:32 03/23/18 16:32 03/23/18 14:00 Intake and Output: 03/23/18 03/23/18 06:59 18:59 Intake Total 2170 500 Balance 2170 500 - Medications Medications: Current Medications Acetaminophen (Tylenol 325mg Tab) 650 mg PO Q4H PRN PRN Reason: Temp >100.4 Last Admin: 03/22/18 22:59 Dose: 650 mg Donepezil HCl (Aricept) 5 mg PO HS [facility] Last Admin: 03/22/18 21:35 Dose: 5 mg Enoxaparin Sodium (Lovenox) 30 mg SC DAILY YAN Last Admin: 03/23/18 10:00 Dose: Not Given Sodium Chloride (Sodium Chloride 0.9%) 1,000 mls @ 100 mls/hr IV .Q10H YAN Last Admin: 03/23/18 05:43 Dose: 100 mls/hr Piperacillin Sod/Tazobactam (Sod 3.375 gm/ Sodium Chloride) 100 mls @ 200 mls/ hr IVPB Q8H YAN PRN Reason: Protocol Last Admin: 03/23/18 17:09 Dose: 200 mls/hr Diltiazem HCl 125 mg/ Sodium (Chloride) 125 mls @ 5 mls/hr IV .Q24H YAN; 5 MG/ HR PRN Reason: Protocol Last Admin: 03/23/18 16:57 Dose: 5 mls/hr Metoprolol Tartrate (Lopressor) 25 mg PO BID [facility]AN Pantoprazole Sodium (Protonix Ec Tab) 40 mg PO BID YAN - Labs Labs: 03/23/18 17:03 03/22/18 16:34 PT 12.3 SECONDS (9.7-12.2) H 03/21/18 06:21 INR 1.1 03/21/18 06:21 APTT 32 SECONDS (21-34) 03/21/18 06:21
--- NOTE | 2018-03-23 20:32 | CP.PCM.PN ---
Subjective - Date & Time of Evaluation Date of Evaluation: 03/23/18 Time of Evaluation: 20:29 - Subjective Subjective: Pt is asleep, calm. Objective - Vital Signs/Intake and Output Vital Signs (last 24 hours): Temp Pulse Resp BP Pulse Ox 99.0 F 80 20 150/73 95 03/23/18 15:56 03/23/18 20:01 03/23/18 16:32 03/23/18 18:19 03/23/18 14:00 Intake and Output: 03/23/18 03/24/18 18:59 06:59 Intake Total 500 Balance 500 - Medications Medications: Current Medications Acetaminophen (Tylenol 325mg Tab) 650 mg PO Q4H PRN PRN Reason: Temp >100.4 Last Admin: 03/22/18 22:59 Dose: 650 mg Donepezil HCl (Aricept) 5 mg PO HS [facility] Last Admin: 03/22/18 21:35 Dose: 5 mg Enoxaparin Sodium (Lovenox) 30 mg SC DAILY [facility] Last Admin: 03/23/18 10:00 Dose: Not Given Sodium Chloride (Sodium Chloride 0.9%) 1,000 mls @ 100 mls/hr IV .Q10H [facility]AN Last Admin: 03/23/18 05:43 Dose: 100 mls/hr Piperacillin Sod/Tazobactam (Sod 3.375 gm/ Sodium Chloride) 100 mls @ 200 mls/ hr IVPB Q8H YAN PRN Reason: Protocol Last Admin: 03/23/18 17:09 Dose: 200 mls/hr Diltiazem HCl 125 mg/ Sodium (Chloride) 125 mls @ 5 mls/hr IV .Q24H YAN; 5 MG/ HR PRN Reason: Protocol Last Admin: 03/23/18 16:57 Dose: 5 mls/hr Metoprolol Tartrate (Lopressor) 25 mg PO BID [facility] Last Admin: 03/23/18 18:19 Dose: 25 mg Pantoprazole Sodium (Protonix Ec Tab) 40 mg PO BID [facility] Last Admin: 03/23/18 18:19 Dose: 40 mg - Labs Labs: 03/23/18 17:03 03/22/18 16:34 PT 12.3 SECONDS (9.7-12.2) H 03/21/18 06:21 INR 1.1 03/21/18 06:21 APTT 32 SECONDS (21-34) 03/21/18 06:21 - Constitutional Appears: Chronically Ill - Head Exam Head Exam: ATRAUMATIC - Eye Exam Eye Exam: EOMI - ENT Exam ENT Exam: Mucous Membranes Dry - Neck Exam Neck Exam: Full ROM - Respiratory Exam Respiratory Exam: Decreased Breath Sounds - Cardiovascular Exam Cardiovascular Exam: REGULAR RHYTHM - GI/Abdominal Exam GI & Abdominal Exam: Normal Bowel Sounds - Exam External exam: NORMAL EXTERNAL EXAM - Extremities Exam Extremities Exam: Normal Inspection - Skin Skin Exam: Pallor Assessment and Plan - Assessment and Plan (Free Text) Assessment: 1. Pt had rapid atrial fib: IV cardezem started and pt converted to nsr. 2. Bp has been high. 3. CXR c/w chf. 4. Trivial tni elevation: likely demand ischemia, due to tachcyardia. plan: IV lasix. IV cardezem overnight, then metoprolol in the AM, can increase to 50 bid. Echo to assess LV EF in setting of CHF If EF is reduced, will add ritchie inhibitor. Check mag level. Serial tni. no asa due to GI bleed.
--- NOTE | 2018-03-23 22:04 | CP.PCM.PN ---
Subjective - Date & Time of Evaluation Date of Evaluation: 03/23/18 Time of Evaluation: 21:59 - Subjective Subjective: General Surgery Progress Note for Dr. Vann This 87F was seen and examined this AM at bedside no acute events overnight. This AM pt complains of epigastric pain. Ostomy is having adequate volume output. Objective - Vital Signs/Intake and Output Vital Signs (last 24 hours): Temp Pulse Resp BP Pulse Ox 99.0 F 80 20 122/70 95 03/23/18 15:56 03/23/18 20:01 03/23/18 16:32 03/23/18 21:02 03/23/18 14:00 Intake and Output: 03/23/18 03/24/18 18:59 06:59 Intake Total 500 Balance 500 - Medications Medications: Current Medications Acetaminophen (Tylenol 325mg Tab) 650 mg PO Q4H PRN PRN Reason: Temp >100.4 Last Admin: 03/22/18 22:59 Dose: 650 mg Donepezil HCl (Aricept) 5 mg PO HS [facility] Last Admin: 03/23/18 21:54 Dose: Not Given Enoxaparin Sodium (Lovenox) 30 mg SC DAILY [facility] Last Admin: 03/23/18 10:00 Dose: Not Given Furosemide (Lasix) 20 mg IVP DAILY [facility] Last Admin: 03/23/18 21:02 Dose: 20 mg Piperacillin Sod/Tazobactam (Sod 3.375 gm/ Sodium Chloride) 100 mls @ 200 mls/ hr IVPB Q8H YAN PRN Reason: Protocol Last Admin: 03/23/18 17:09 Dose: 200 mls/hr Diltiazem HCl 125 mg/ Sodium (Chloride) 125 mls @ 5 mls/hr IV .Q24H YAN; 5 MG/ HR PRN Reason: Protocol Last Admin: 03/23/18 16:57 Dose: 5 mls/hr Metoprolol Tartrate (Lopressor) 25 mg PO BID [facility] Last Admin: 03/23/18 18:19 Dose: 25 mg Pantoprazole Sodium (Protonix Ec Tab) 40 mg PO BID [facility] Last Admin: 03/23/18 18:19 Dose: 40 mg - Labs Labs: 03/23/18 17:03 03/22/18 16:34 PT 12.3 SECONDS (9.7-12.2) H 03/21/18 06:21 INR 1.1 03/21/18 06:21 APTT 32 SECONDS (21-34) 03/21/18 06:21 - Constitutional Appears: Non-toxic, No Acute Distress - Head Exam Head Exam: ATRAUMATIC, NORMOCEPHALIC - Eye Exam Eye Exam: EOMI - ENT Exam ENT Exam: Mucous Membranes Moist - Respiratory Exam Respiratory Exam: NORMAL BREATHING PATTERN - GI/Abdominal Exam GI & Abdominal Exam: Soft. absent: Distended, Firm, Guarding, Rigid, Tenderness - Neurological Exam Neurological Exam: Alert, Awake - Skin Skin Exam: Dry, Intact Assessment and Plan - Assessment and Plan (Free Text) Assessment: 87F with leukocytosis and parastomal hernia Leukcytosis unlikley related to stoma Urine cx proteus mirabilis No surgical Intervention at this time further recs per Dr. Soo Ambrosio PGY3
[2018-03-23 23:23] LABS: CK-MB 1.51 ng/mL (0.0-3.38); TROPONIN I 0.225 ng/mL (0.00-0.120)
--- NOTE | 2018-03-23 23:55 | CP.PCM.PN ---
Subjective - Date & Time of Evaluation Date of Evaluation: 03/23/18 Time of Evaluation: 17:00 - Subjective Subjective: Pt seen and examined at bedside, pt wbc went down now its going up again. pt is on IV Cardizem drip and metoprolol ( due to atrial fibrillation) , pt is weak and demented, H is now better after transfusion pt is on zosyn, afebrile Objective - Vital Signs/Intake and Output Vital Signs (last 24 hours): Temp Pulse Resp BP Pulse Ox 99.0 F 80 20 122/70 95 03/23/18 15:56 03/23/18 20:01 03/23/18 16:32 03/23/18 21:02 03/23/18 14:00 Intake and Output: 03/23/18 03/24/18 18:59 06:59 Intake Total 500 Balance 500 - Medications Medications: Current Medications Acetaminophen (Tylenol 325mg Tab) 650 mg PO Q4H PRN PRN Reason: Temp >100.4 Last Admin: 03/22/18 22:59 Dose: 650 mg Donepezil HCl (Aricept) 5 mg PO HS [facility] Last Admin: 03/23/18 21:54 Dose: Not Given Enoxaparin Sodium (Lovenox) 30 mg SC DAILY [facility]AN Last Admin: 03/23/18 10:00 Dose: Not Given Furosemide (Lasix) 20 mg IVP DAILY [facility] Last Admin: 03/23/18 21:02 Dose: 20 mg Piperacillin Sod/Tazobactam (Sod 3.375 gm/ Sodium Chloride) 100 mls @ 200 mls/ hr IVPB Q8H YAN PRN Reason: Protocol Last Admin: 03/23/18 17:09 Dose: 200 mls/hr Diltiazem HCl 125 mg/ Sodium (Chloride) 125 mls @ 5 mls/hr IV .Q24H YAN; 5 MG/ HR PRN Reason: Protocol Last Admin: 03/23/18 16:57 Dose: 5 mls/hr Metoprolol Tartrate (Lopressor) 25 mg PO BID [facility] Last Admin: 03/23/18 18:19 Dose: 25 mg Pantoprazole Sodium (Protonix Ec Tab) 40 mg PO BID [facility] Last Admin: 03/23/18 18:19 Dose: 40 mg - Labs Labs: 03/23/18 17:03 03/22/18 16:34 PT 12.3 SECONDS (9.7-12.2) H 03/21/18 06:21 INR 1.1 03/21/18 06:21 APTT 32 SECONDS (21-34) 03/21/18 06:21 Assessment and Plan (1) UTI (urinary tract infection) Assessment & Plan: urine culures positive for E.Coli sensistive to zosyn Status: Acute (2) Septicemia Status: Acute (3) Dehydration Status: Acute (4) Anemia Status: Acute (5) Gastrointestinal hemorrhage Assessment & Plan: due to straess gastritis Status: Acute (6) Episodic atrial fibrillation Assessment & Plan: continue IV cardizm, metoprolol Status: Acute
[2018-03-24] MEDS: Piperacillin/Tazobact 3.375 GM in Sodium Chloride 100 ML IVPB SCH ×3 (01:32→17:03)
[2018-03-24 05:56] LABS: BLOOD UREA NITROGEN 16 mg/dL (7-17); CALCIUM 8.5 mg/dl (8.6-10.4); GFR AFRICAN-AMERICAN > 60; GFR NON-AFRICAN AMERICAN > 60
--- NOTE | 2018-03-24 07:57 | CP.PCM.PN ---
Subjective - Date & Time of Evaluation Date of Evaluation: 03/24/18 Time of Evaluation: 07:52 - Subjective Subjective: Pt is back in atrial fibrillation, with a controlled rate. On IV cardezem. Lying flat, no dyspnea, somnolent, arousable. Objective - Vital Signs/Intake and Output Vital Signs (last 24 hours): Temp Pulse Resp BP Pulse Ox 97.5 F L 67 20 119/66 96 03/24/18 05:18 03/24/18 05:18 03/24/18 05:18 03/24/18 05:18 03/23/18 23:05 Intake and Output: 03/24/18 03/24/18 06:59 18:59 Intake Total 160 Balance 160 - Medications Medications: Current Medications Acetaminophen (Tylenol 325mg Tab) 650 mg PO Q4H PRN PRN Reason: Temp >100.4 Last Admin: 03/22/18 22:59 Dose: 650 mg Donepezil HCl (Aricept) 5 mg PO HS [facility] Last Admin: 03/23/18 21:54 Dose: Not Given Enoxaparin Sodium (Lovenox) 30 mg SC DAILY [facility] Last Admin: 03/23/18 10:00 Dose: Not Given Furosemide (Lasix) 20 mg IVP DAILY [facility] Last Admin: 03/23/18 21:02 Dose: 20 mg Piperacillin Sod/Tazobactam (Sod 3.375 gm/ Sodium Chloride) 100 mls @ 200 mls/ hr IVPB Q8H YAN PRN Reason: Protocol Last Admin: 03/24/18 01:32 Dose: 200 mls/hr Diltiazem HCl 125 mg/ Sodium (Chloride) 125 mls @ 5 mls/hr IV .Q24H YAN; 5 MG/ HR PRN Reason: Protocol Last Admin: 03/23/18 16:57 Dose: 5 mls/hr Metoprolol Tartrate (Lopressor) 25 mg PO BID [facility] Last Admin: 03/23/18 18:19 Dose: 25 mg Pantoprazole Sodium (Protonix Ec Tab) 40 mg PO BID [facility] Last Admin: 03/23/18 18:19 Dose: 40 mg - Labs Labs: 03/23/18 17:03 03/24/18 05:30 PT 12.3 SECONDS (9.7-12.2) H 07/07/18 06:21 INR 1.1 03/21/18 06:21 APTT 32 SECONDS (21-34) 03/21/18 06:21 - Constitutional Appears: Cachectic - Eye Exam Eye Exam: EOMI - ENT Exam ENT Exam: Mucous Membranes Dry - Neck Exam Neck Exam: Full ROM, Normal Inspection - Respiratory Exam Respiratory Exam: Decreased Breath Sounds - Cardiovascular Exam Cardiovascular Exam: Irregular Rhythm - Extremities Exam Extremities Exam: Normal Inspection - Back Exam Back Exam: NORMAL INSPECTION - Neurological Exam Neurological Exam: Altered - Psychiatric Exam Psychiatric exam: Flat Affect - Skin Skin Exam: Normal Color Assessment and Plan - Assessment and Plan (Free Text) Assessment: 1. Trivial TNi elevation is likely due to trivial demand ischemia. medical management is advised. No asa/anticoagulation in setting of Gi bleed, anemia 2. atrial fib; replace K. Once K is replaced, stop cardezem and replace with metoprolol po 50 bid. 3. CHF: echo ordered. If LV ef is reduced, add ritchie/arb. Lasix as tolerated. Repeat cxr in a few days. TSH
[2018-03-24] MEDS: Potassium Chloride 20 mEq ER Tab PO SCH (08:21)
[2018-03-24] MEDS ORDERED: Epoetin Alfa 10,000 unit/ml Dialysis SC SCH ×2 (10:00)
--- NOTE | 2018-03-24 10:07 | CP.PCM.PN ---
Subjective - Date & Time of Evaluation Date of Evaluation: 03/24/18 Time of Evaluation: 10:05 - Subjective Subjective: Surgery: Dr. Vann Pt seen and examined. Went for EGD yesterday, questionable aspiration and subsequent A-fib RVR. No complaints of abd pain at this time. No N/V, + stool output. Objective - Vital Signs/Intake and Output Vital Signs (last 24 hours): Temp Pulse Resp BP Pulse Ox 98.1 F 81 18 131/65 90 L 03/24/18 07:00 03/24/18 08:00 03/24/18 07:00 03/24/18 07:00 03/24/18 07:00 Intake and Output: 03/24/18 03/24/18 06:59 18:59 Intake Total 160 Balance 160 - Medications Medications: Current Medications Acetaminophen (Tylenol 325mg Tab) 650 mg PO Q4H PRN PRN Reason: Temp >100.4 Last Admin: 03/22/18 22:59 Dose: 650 mg Donepezil HCl (Aricept) 5 mg PO HS [facility] Last Admin: 03/23/18 21:54 Dose: Not Given Enoxaparin Sodium (Lovenox) 30 mg SC DAILY [facility] Last Admin: 03/23/18 10:00 Dose: Not Given Furosemide (Lasix) 20 mg IVP DAILY [facility] Last Admin: 03/23/18 21:02 Dose: 20 mg Piperacillin Sod/Tazobactam (Sod 3.375 gm/ Sodium Chloride) 100 mls @ 200 mls/ hr IVPB Q8H YAN PRN Reason: Protocol Last Admin: 03/24/18 01:32 Dose: 200 mls/hr Potassium Chloride (Potassium Chloride 20 Meq/100 Ml) 20 meq in 100 mls @ 50 mls/hr IVPB ONCE ONE Stop: 03/24/18 10:14 Last Admin: 03/24/18 08:16 Dose: 50 mls/hr Metoprolol Tartrate (Lopressor) 50 mg PO BID YAN Pantoprazole Sodium (Protonix Ec Tab) 40 mg PO BID [facility] Last Admin: 03/23/18 18:19 Dose: 40 mg Potassium Chloride (K-Dur 20 Meq Er Tab) 20 meq PO BRK [facility] Last Admin: 03/24/18 08:21 Dose: 20 meq - Labs Labs: 03/23/18 17:03 03/24/18 05:30 PT 12.3 SECONDS (9.7-12.2) H 03/21/18 06:21 INR 1.1 03/21/18 06:21 APTT 32 SECONDS (21-34) 03/21/18 06:21 - Constitutional Appears: Non-toxic, No Acute Distress - Head Exam Head Exam: ATRAUMATIC, NORMOCEPHALIC - Eye Exam Eye Exam: EOMI - ENT Exam ENT Exam: Mucous Membranes Moist - Neck Exam Neck Exam: Full ROM - Cardiovascular Exam Cardiovascular Exam: Irregular Rhythm - GI/Abdominal Exam GI & Abdominal Exam: Soft, Tenderness, Hernia (parastomal, reducible). absent: Distended, Firm, Guarding, Rigid Additional comments: stoma, pink and patent, + stool output - Extremities Exam Extremities Exam: absent: Calf Tenderness, Pedal Edema - Neurological Exam Neurological Exam: Alert, Awake - Skin Skin Exam: Normal Color, Warm Assessment and Plan - Assessment and Plan (Free Text) Assessment: 87F w. reducible parastomal hernia -Stoma functioning w. out issue -EGD findings reviewed: gastritis / LA Grade C / hiatal hernia -leukocytosis likely 2/2 to UTI/aspiration -c/w abx -no plans for surgical intervention -please reconsult if needed -d/w attending Porshaitis PGY4
[2018-03-24] MEDS: Enoxaparin 30 mg Syringe SC SCH (10:09)
[2018-03-24] MEDS: Pantoprazole 40 mg EC Tab PO SCH ×2 (10:09→17:03)
--- NOTE | 2018-03-24 10:23 | CP.PCM.PN ---
Subjective - Date & Time of Evaluation Date of Evaluation: 03/24/18 Time of Evaluation: 10:19 - Subjective Subjective: GI Fellow PGY4, Progress note. Patient had eventful night. Unfortunately, patient had retained biliary contents in esophagus and stomach and quickly aspirated during EGD procedure. Later, patient had RR and she was given Cardizem for afib w/ RVR. Also, 1 unit RBCs given with good response in Hb. Today, she appears very comfortable on 4LNC satting 91%. No distress. Patient non-compliant with exam, but nurse denies further melena or signs of GI bleeding. Unable to complete 12pt ROS due to AMS Objective - Vital Signs/Intake and Output Vital Signs (last 24 hours): Temp Pulse Resp BP Pulse Ox 98.1 F 81 18 123/78 90 L 03/24/18 07:00 03/24/18 08:00 03/24/18 07:00 03/24/18 10:09 03/24/18 07:00 Intake and Output: 03/24/18 03/24/18 06:59 18:59 Intake Total 160 Balance 160 - Medications Medications: Current Medications Acetaminophen (Tylenol 325mg Tab) 650 mg PO Q4H PRN PRN Reason: Temp >100.4 Last Admin: 03/22/18 22:59 Dose: 650 mg Donepezil HCl (Aricept) 5 mg PO HS [facility] Last Admin: 03/23/18 21:54 Dose: Not Given Enoxaparin Sodium (Lovenox) 30 mg SC DAILY [facility] Last Admin: 03/24/18 10:09 Dose: 30 mg Furosemide (Lasix) 20 mg IVP DAILY [facility] Last Admin: 03/24/18 10:09 Dose: 20 mg Piperacillin Sod/Tazobactam (Sod 3.375 gm/ Sodium Chloride) 100 mls @ 200 mls/ hr IVPB Q8H [facility] PRN Reason: Protocol Last Admin: 03/24/18 01:32 Dose: 200 mls/hr Metoprolol Tartrate (Lopressor) 50 mg PO BID [facility] Last Admin: 03/24/18 10:09 Dose: 50 mg Pantoprazole Sodium (Protonix Ec Tab) 40 mg PO BID [facility] Last Admin: 03/24/18 10:09 Dose: 40 mg Potassium Chloride (K-Dur 20 Meq Er Tab) 20 meq PO BRK [facility] Last Admin: 03/24/18 08:21 Dose: 20 meq - Labs Labs: 03/23/18 17:03 03/24/18 05:30 PT 12.3 SECONDS (9.7-12.2) H 03/21/18 06:21 INR 1.1 03/21/18 06:21 APTT 32 SECONDS (21-34) 03/21/18 06:21 - Constitutional Appears: Well, Non-toxic, No Acute Distress, Chronically Ill - Head Exam Head Exam: ATRAUMATIC, NORMAL INSPECTION, NORMOCEPHALIC - Eye Exam Eye Exam: EOMI, Normal appearance, PERRL - ENT Exam ENT Exam: Mucous Membranes Moist, Normal Exam - Respiratory Exam Respiratory Exam: Clear to Ausculation Bilateral, NORMAL BREATHING PATTERN. absent: Wheezes Additional comments: Mild crackles in the right base. - Cardiovascular Exam Cardiovascular Exam: REGULAR RHYTHM, +S1, +S2 - GI/Abdominal Exam GI & Abdominal Exam: Soft, Normal Bowel Sounds. absent: Tenderness Additional comments: Colostomy pouch present with green/brown liquid stool. - Extremities Exam Extremities Exam: Full ROM, Normal Inspection. absent: Pedal Edema - Neurological Exam Neurological Exam: Altered, Awake, CN II-XII Intact. absent: Oriented x3 - Psychiatric Exam Psychiatric exam: Agitated, Normal Mood. absent: Normal Affect - Skin Skin Exam: Dry, Intact, Pallor Assessment and Plan - Assessment and Plan (Free Text) Assessment: 87F with dementia and hx of gastric ulcers presenting with anemia and reported coffee ground emesis concerning for upper GI bleed. #Acute blood loss anemia due to upper GI bleed #Esophagitis, LA grade C #Gastric ulcers #Gastritis #Colostomy #Diverticulosis #Chronic dementia #Afib with RVR Plan: -Continue supportive care -Liquid diet, advance as tolerated. -Recommend aspiration precautions -Hb and signs of bleeding seem to be improving. Continue to monitor H/H. Transfuse for Hb less than 7. -Continue PPI BID -HOLD lovenox. SCDs ordered for DVT prophy. -Consider pulmonary consult if respiratory problems evolve. -No further GI interventions planned.
[2018-03-24 10:36] LABS: HEMOGLOBIN 9.7 g/dL (11.0-16.0); MEAN CELL VOLUME 69.3 fL (81.0-99.0); MEAN CORPUSCULAR HEMOGLOBIN 22.1 pg (27.0-31.0); MEAN CORPUSCULAR HGB CONC 31.9 g/dL (33.0-37.0); MEAN PLATELET VOLUME 8.2 fL (7.2-11.7); RBC 4.4 Mil/uL (3.80-5.20); RED CELL DISTRIBUTION WIDTH 20.3 % (11.5-14.5); WHITE BLOOD COUNT 21.3 K/uL (4.8-10.8)
--- NOTE | 2018-03-24 18:37 | CARD ---
APPROVED REPORT Date of service: 03/24/2018 EXAM: Two-dimensional and M-mode echocardiogram with Doppler and color Doppler. Other Information Quality : TDSRhythm : INDICATION Dizziness and Vertigo Atrial Fibrillation Syncope Congestive Heart Failure 2D DIMENSIONS IVSd1.1 (0.7-1.1cm)LVDd3.3 (3.9-5.9cm) PWd1.1 (0.7-1.1cm)LVDs1.9 (2.5-4.0cm) FS (%) 41.6 %LVEF (%)73.7 (>50%) M-Mode DIMENSIONS Left Atrium (MM)3.95 (2.5-4.0cm)IVSd1.36 (0.7-1.1cm) Aortic Root3.17 (2.2-3.7cm)LVDd4.03 (4.0-5.6cm) Aortic Cusp Exc.1.80 (1.5-2.0cm)PWd1.09 (0.7-1.1cm) FS (%) 45 %LVDs2.22 (2.0-3.8cm) LVEF (%)77 (>50%) Mitral Valve MV E Dvjxakra416.2cm/sMV A Cjtwtlxi63.9cm/sE/A ratio3.1 TDI E/Lateral E'0.0E/Medial E'0.0 Tricuspid Valve TR Peak Uyfnfkzb115rk/sTR Peak Gr.[id number] LEFT VENTRICLE The left ventricle is normal size. There is borderline concentric left ventricular hypertrophy. Left ventricle systolic function is normal. The Ejection Fraction is 70%. There is normal LV segmental wall motion. Transmitral Doppler flow pattern is Grade I-abnormal relaxation pattern. There is no ventricular septal defect visualized. RIGHT VENTRICLE The right ventricle is normal size. The right ventricular systolic function is normal. ATRIA The left atrium is mildly dilated. The right atrium size is normal. AORTIC VALVE The aortic valve is mildly sclerotic. The aortic valve is tri-cuspid. No aortic regurgitation is present. There is no aortic valvular stenosis. MITRAL VALVE Mitral annular calcification is mild. There is no evidence of mitral valve prolapse. Mitral regurgitation is trace to mild. ERO 0.1 TRICUSPID VALVE The tricuspid valve is normal in structure. There is trace tricuspid regurgitation. Right ventricular systolic pressure is estimated at 30-40 mmHg. There is mild pulmonary hypertension. PULMONIC VALVE The pulmonic valve is not well visualized. There is no pulmonic valvular regurgitation. GREAT VESSELS The aortic root is normal in size. The ascending aorta is normal in size. The IVC is normal in size and collapses >50% with inspiration. PERICARDIAL EFFUSION There is no pericardial effusion. <Conclusion> Left ventricle systolic function is normal. The Ejection Fraction is 70%. Transmitral Doppler flow pattern is Grade I-abnormal relaxation pattern. Mitral regurgitation is trace to mild. ERO 0.1 There is mild pulmonary hypertension.
--- NOTE | 2018-03-25 00:09 | CP.PCM.PN ---
Subjective - Date & Time of Evaluation Date of Evaluation: 03/24/18 Time of Evaluation: 17:40 - Subjective Subjective: pt seen & examined , afebrle, HR is under better control, abusable,she remains weak, drowsy, wbc is coming down, contine metoprolol, protonix, diet, antibiotics for septicemia Objective - Vital Signs/Intake and Output Vital Signs (last 24 hours): Temp Pulse Resp BP Pulse Ox 97.6 F 62 18 138/74 92 L 03/24/18 16:00 03/24/18 16:00 03/24/18 16:00 03/24/18 16:00 03/24/18 16:00 Intake and Output: 03/24/18 03/25/18 18:59 06:59 Intake Total 350 Output Total 300 Balance 50 - Medications Medications: Current Medications Acetaminophen (Tylenol 325mg Tab) 650 mg PO Q4H PRN PRN Reason: Temp >100.4 Last Admin: 03/22/18 22:59 Dose: 650 mg Donepezil HCl (Aricept) 5 mg PO HS [facility] Last Admin: 03/24/18 23:18 Dose: Not Given Furosemide (Lasix) 20 mg IVP DAILY [facility] Last Admin: 03/24/18 10:09 Dose: 20 mg Piperacillin Sod/Tazobactam (Sod 3.375 gm/ Sodium Chloride) 100 mls @ 200 mls/ hr IVPB Q8H [facility] PRN Reason: Protocol Last Admin: 03/24/18 17:03 Dose: 200 mls/hr Metoprolol Tartrate (Lopressor) 50 mg PO BID [facility] Last Admin: 03/24/18 17:03 Dose: 50 mg Pantoprazole Sodium (Protonix Ec Tab) 40 mg PO BID [facility] Last Admin: 03/24/18 17:03 Dose: 40 mg Potassium Chloride (K-Dur 20 Meq Er Tab) 20 meq PO BRK [facility] Last Admin: 03/24/18 08:21 Dose: 20 meq - Labs Labs: 03/24/18 10:32 03/24/18 05:30 PT 12.3 SECONDS (9.7-12.2) H 03/21/18 06:21 INR 1.1 03/21/18 06:21 APTT 32 SECONDS (21-34) 03/21/18 06:21 - Constitutional Appears: No Acute Distress, Chronically Ill - Head Exam Head Exam: ATRAUMATIC, NORMAL INSPECTION, NORMOCEPHALIC - Eye Exam Eye Exam: EOMI, Normal appearance, PERRL Pupil Exam: NORMAL ACCOMODATION, PERRL - Cardiovascular Exam Cardiovascular Exam: REGULAR RHYTHM, +S1, +S2. absent: Murmur - GI/Abdominal Exam GI & Abdominal Exam: Soft, Normal Bowel Sounds. absent: Tenderness - Rectal Exam Rectal Exam: Deferred Assessment and Plan (1) UTI (urinary tract infection) Status: Acute (2) Septicemia Assessment & Plan: continue antibiotics Status: Acute (3) Dehydration Status: Acute (4) Anemia Status: Acute (5) Gastrointestinal hemorrhage Status: Acute (6) Episodic atrial fibrillation Status: Acute
[2018-03-25] MEDS: Piperacillin/Tazobact 3.375 GM in Sodium Chloride 100 ML IVPB SCH ×3 (00:49→17:35)
--- NOTE | 2018-03-25 01:05 | CARD ---
APPROVED REPORT Date of service: 03/23/2018 EKG Measurement Heart [id number] <Conclusion> Sinus rhythm with premature supraventricular complexes Otherwise normal ECG
[2018-03-25 07:40] LABS: BASO % 0.1 % (0.0-2.0); EOS % 0.1 % (0.0-4.0); LYMPH # 0.8 K/uL (1.0-4.3); LYMPH % 3.5 % (20.0-40.0); MEAN CELL VOLUME 68.6 fL (81.0-99.0); MEAN CORPUSCULAR HEMOGLOBIN 22.4 pg (27.0-31.0); MEAN CORPUSCULAR HGB CONC 32.6 g/dL (33.0-37.0); MEAN PLATELET VOLUME 7.9 fL (7.2-11.7); MONO # 1.3 K/uL (0.0-0.8); MONO % 5.3 % (0.0-10.0); NEUT # 22.1 K/uL (1.8-7.0); PLATELET COUNT 394 K/uL (130-400); RBC 4.47 Mil/uL (3.80-5.20); RED CELL DISTRIBUTION WIDTH 19.7 % (11.5-14.5); WHITE BLOOD COUNT 24.3 K/uL (4.8-10.8)
[2018-03-25 07:51] LABS: ALBUMIN 2.8 g/dL (3.5-5.0); ALT/SGPT 23 U/L (9-52); AST/SGOT 17 U/L (14-36); BLOOD UREA NITROGEN 16 mg/dL (7-17); CALCIUM 8.6 mg/dl (8.6-10.4); GFR AFRICAN-AMERICAN > 60; GFR NON-AFRICAN AMERICAN > 60
[2018-03-25] MEDS: Potassium Chloride 20 mEq ER Tab PO SCH (08:36)
[2018-03-25 09:00] LABS: ANISOCYTOSIS SLIGHT; BANDS 1 % (0-2); HYPOCHROMIC SLIGHT; LYMPHOCYTE 6 % (20-40); MONOCYTE 5 % (0-10); NEUTROPHIL 88 % (50-75); PLATELET ESTIMATE NORMAL (NORMAL); POIKILOCYTOSIS SLIGHT; TARGET CELLS SLIGHT; TOTAL CELLS COUNTED 100
[2018-03-25 09:01] LABS: LARGE PLATELETS PRESENT; OVALOCYTES SLIGHT; TEARDROP CELLS SLIGHT
[2018-03-25] MEDS: Pantoprazole 40 mg EC Tab PO SCH ×2 (09:38→17:40)
[2018-03-25] MEDS ORDERED: Potassium Chloride 20 mEq ER Tab PO ONE (10:00)
--- NOTE | 2018-03-25 11:55 | CP.PCM.PN ---
Subjective - Date & Time of Evaluation Date of Evaluation: 03/25/18 Time of Evaluation: 11:53 - Subjective Subjective: GI Fellow PGY4, Progress note. Patient seen and examined at bedside. No acute overnight events. She refuses SCD treatment. Hb stable, stool brown. Breathing easy. Unable to complete 12pt ROS as patient is non-compliant. Objective - Vital Signs/Intake and Output Vital Signs (last 24 hours): Temp Pulse Resp BP Pulse Ox 99.1 F 86 18 145/79 95 03/25/18 07:00 03/25/18 07:00 03/25/18 07:00 03/25/18 09:37 03/25/18 07:00 Intake and Output: 03/25/18 03/25/18 06:59 18:59 Intake Total 120 Balance 120 - Medications Medications: Current Medications Acetaminophen (Tylenol 325mg Tab) 650 mg PO Q4H PRN PRN Reason: Temp >100.4 Last Admin: 03/22/18 22:59 Dose: 650 mg Donepezil HCl (Aricept) [address] [facility] Last Admin: 03/24/18 23:18 Dose: Not Given Furosemide (Lasix) 20 mg IVP DAILY [facility] Last Admin: 03/25/18 09:37 Dose: 20 mg Piperacillin Sod/Tazobactam (Sod 3.375 gm/ Sodium Chloride) 100 mls @ 200 mls/ hr IVPB Q8H [facility] PRN Reason: Protocol Last Admin: 03/25/18 09:37 Dose: 200 mls/hr Metoprolol Tartrate (Lopressor) 50 mg PO BID [facility] Last Admin: 03/25/18 09:38 Dose: 50 mg Pantoprazole Sodium (Protonix Ec Tab) 40 mg PO BID [facility] Last Admin: 03/25/18 09:38 Dose: 40 mg Potassium Chloride (K-Dur 20 Meq Er Tab) 20 meq PO BRK [facility] Last Admin: 03/25/18 08:36 Dose: 20 meq - Labs Labs: 03/25/18 07:27 03/25/18 07:27 PT 12.3 SECONDS (9.7-12.2) H 03/21/18 06:21 INR 1.1 03/21/18 06:21 APTT 32 SECONDS (21-34) 03/21/18 06:21 - Constitutional Appears: Non-toxic, No Acute Distress, Chronically Ill - Head Exam Head Exam: ATRAUMATIC, NORMAL INSPECTION, NORMOCEPHALIC - Eye Exam Eye Exam: EOMI, Normal appearance, PERRL - ENT Exam ENT Exam: Mucous Membranes Moist, Normal Exam - Neck Exam Neck Exam: Full ROM, Normal Inspection - Respiratory Exam Respiratory Exam: Clear to Ausculation Bilateral, NORMAL BREATHING PATTERN. absent: Wheezes - Cardiovascular Exam Cardiovascular Exam: REGULAR RHYTHM, +S1, +S2 - GI/Abdominal Exam GI & Abdominal Exam: Soft, Normal Bowel Sounds. absent: Tenderness Additional comments: Colostomy pouch present with brown stool. - Extremities Exam Extremities Exam: Normal Inspection - Neurological Exam Neurological Exam: absent: Awake, Oriented x3 Additional comments: Responds to stimuli. - Psychiatric Exam Psychiatric exam: Normal Affect, Normal Mood - Skin Skin Exam: Dry, Intact, Pallor Assessment and Plan - Assessment and Plan (Free Text) Assessment: 87F with dementia and hx of gastric ulcers presenting with anemia and reported coffee ground emesis concerning for upper GI bleed. #Acute blood loss anemia due to upper GI bleed #Esophagitis, LA grade C #Aspiration - biliary stomach contents during EGD. #Gastric ulcers #Gastritis #Colostomy #Diverticulosis #Chronic dementia #Afib with RVR Plan: -Continue supportive care -EGD w.out signs of active bleeding. -Hb and signs of bleeding seem to be improving. Continue to monitor H/H. Transfuse for Hb less than 7. -Full Liquid diet, advance as tolerated. -Recommend aspiration precautions -Continue PPI BID, Avoid NSAIDs. -HOLD lovenox in setting of recent bleed. SCDs ordered for DVT prophy. Patient not tolerating. -No further GI interventions planned. -We will sign-off at this time. Please reconsult for any new problems.
--- NOTE | 2018-03-25 17:27 | CP.PCM.CON ---
History of Present Illness - History of Present Illness History of Present Illness: Pulmonology consulted for shortness of breath HPI: 89 year old female patient with past medical history of Alzheimer, hypertension, hyperlipedemia, PEG tube, anemia, gallbladder disease, CKD presented to the hospital from longterm with complaint of coffee ground emesis. Patient was seen and examined at bedside. Patient is in no acute distress. Patient is afebrile. Patient denies any shortness of breath, chest pain and cough. PMH: Alzheimer, hypertension, hyperlipedemia, PEG tube, anemia, gallbladder disease, CKD, colostomy from previous surgery PSH: No alcohol use, non- smoker, patient resides in a longterm Meds: Acetaminophen 650 mg PO Q4H PRN Donepezil Hcl 5 mg PO HS Furosemide 20 mg IVP Daily Metoprolol Tartrate 50 mg PO BID Pantoprazole Sodium 40 mg PO BID Piperacillin Sod/ Tazobactam Sod 3.374 gm in Sodium Chloride ROS: Constitutional: Patient denies fever and chills. Cardiovascular: Patient denies chest pain, palpitations. Respiratory: Patient denies shortness of breath, sough, snoring, daytime somnolence. Gastrointestinal: Patient denies nausea, vomiting, diarrhea. Neurological: Headache, AAO X 3, normal speech Physical Exam HEENT: Atraumatic, normocephalic, mucuous membranes moist Repiratory: Clear to auscultation bilaterally. No wheezing or rhonchi. No use of accessory muscles. Cardiovascular: +S1/ S2, regular rate and rhythm GI: Normal bowel sounds in all 4 quadrants, no tenderness, no distention Extremities: No LE edema Neurological: Alert, awake, oriented X3 Assessment: 89 year old female patient with past medical history of Alzheimer, hypertension , hyperlipedemia, PEG tube, anemia, gallbladder disease, CKD; 1. Dyspnea Status: Acute - CT Scan without contrast 2. UTI Status: Acute - Continue antibiotics 3. Dehydration Status: Acute 4. Episodic atrial fibrillation Status: Acute Past Patient History - Infectious Disease Hx of Infectious Diseases: None - Past Medical History & Family History Past Medical History?: Yes - Past Social History Smoking Status: Never Smoked - CARDIAC Hx Hypertension: Yes - PULMONARY Hx Respiratory Disorders: No - NEUROLOGICAL Hx Alzheimer's Disease: Yes Hx Dementia: Yes - HEENT Hx HEENT Problems: No Other/Comment: hard of hearing - RENAL Hx Chronic Kidney Disease: No - ENDOCRINE/METABOLIC Hx Endocrine Disorders: No - HEMATOLOGICAL/ONCOLOGICAL Hx Anemia: Yes - INTEGUMENTARY Hx Dermatological Problems: No - MUSCULOSKELETAL/RHEUMATOLOGICAL Hx Musculoskeletal Disorders: Yes Hx Falls: Yes - GASTROINTESTINAL Hx Gall Bladder Disease: Yes - GENITOURINARY/GYNECOLOGICAL Hx Genitourinary Disorders: No - PSYCHIATRIC Hx Substance Use: No - SURGICAL HISTORY Hx Surgeries: Yes Other/Comment: colon resection with colostomy - ANESTHESIA Hx Anesthesia: Yes Hx Anesthesia Reactions: No Hx Malignant Hyperthermia: No Meds Allergies/Adverse Reactions: Allergies Allergy/AdvReac Type Severity Reaction Status Date / Time No Known Allergies Allergy Verified 03/21/18 05:38 - Medications Medications: Current Medications Acetaminophen (Tylenol 325mg Tab) 650 mg PO Q4H PRN PRN Reason: Temp >100.4 Last Admin: 03/22/18 22:59 Dose: 650 mg Donepezil HCl (Aricept) 5 mg PO HS [facility] Last Admin: 03/24/18 23:18 Dose: Not Given Furosemide (Lasix) 20 mg IVP DAILY [facility] Last Admin: 03/25/18 09:37 Dose: 20 mg Piperacillin Sod/Tazobactam (Sod 3.375 gm/ Sodium Chloride) 100 mls @ 200 mls/ hr IVPB Q8H [facility] PRN Reason: Protocol Last Admin: 03/25/18 09:37 Dose: 200 mls/hr Metoprolol Tartrate (Lopressor) 50 mg PO BID [facility] Last Admin: 03/25/18 09:38 Dose: 50 mg Pantoprazole Sodium (Protonix Ec Tab) 40 mg PO BID [facility] Last Admin: 03/25/18 09:38 Dose: 40 mg Potassium Chloride (K-Dur 20 Meq Er Tab) 20 meq PO BRK [facility] Last Admin: 03/25/18 08:36 Dose: 20 meq Potassium Chloride (K-Dur 20 Meq Er Tab) 20 meq PO ONCE ONE Stop: 03/26/18 20:01 Results - Vital Signs Recent Vital Signs: Last Vital Signs Temp 99.1 F 03/25/18 07:00 Pulse 86 03/25/18 07:57 Resp 18 03/25/18 07:00 BP 145/79 03/25/18 09:37 Pulse Ox 95 03/25/18 07:00 - Labs Result Diagrams: 03/25/18 07:27 03/25/18 07:27 Labs: Laboratory Results - last 24 hr 03/25/18 03/25/18 07:27 07:27 WBC 24.3 H RBC 4.47 Hgb 10.0 L Hct 30.7 L MCV 68.6 L MCH 22.4 L MCHC 32.6 L RDW 19.7 H Plt Count 394 MPV 7.9 Neut % (Auto) 91.0 H Lymph % (Auto) 3.5 L Anson % (Auto) 5.3 Eos % (Auto) 0.1 Baso % (Auto) 0.1 Neut # (Auto) 22.1 H Lymph # (Auto) 0.8 L Anson # (Auto) 1.3 H Eos # (Auto) 0.0 Baso # (Auto) 0.0 Neutrophils % (Manual) 88 H Band Neutrophils % 1 Lymphocytes % (Manual) 6 L Monocytes % (Manual) 5 Platelet Estimate Normal Large Platelets Present Hypochromasia (manual) Slight Poikilocytosis (manual Slight Anisocytosis (manual) Slight Target Cells Slight Tear Drop Cells Slight Ovalocytes Slight Sodium 142 Potassium 3.1 L Chloride 108 H Carbon Dioxide 21 L Anion Gap 15 BUN 16 Creatinine 0.6 L Est GFR ( Amer) > 60 Est GFR (Non-Af Amer) > 60 Random Glucose 115 H Calcium 8.6 Total Bilirubin 1.6 H AST 17 ALT 23 Alkaline Phosphatase 68 Total Protein 5.8 L Albumin 2.8 L D Globulin 3.0 Albumin/Globulin Ratio 1.0 TSH 3rd Generation 0.64
--- NOTE | 2018-03-25 20:33 | CP.PCM.PN ---
Subjective - Date & Time of Evaluation Date of Evaluation: 03/25/18 Time of Evaluation: 20:31 - Subjective Subjective: Seen and examined No chest pain or dyspnea Objective - Vital Signs/Intake and Output Vital Signs (last 24 hours): Temp Pulse Resp BP Pulse Ox 98.8 F 73 18 155/73 H 95 03/25/18 15:30 03/25/18 15:30 03/25/18 15:30 03/25/18 15:30 03/25/18 15:30 Intake and Output: 03/25/18 03/26/18 18:59 06:59 Intake Total 100 Balance 100 - Medications Medications: Current Medications Acetaminophen (Tylenol 325mg Tab) 650 mg PO Q4H PRN PRN Reason: Temp >100.4 Last Admin: 03/22/18 22:59 Dose: 650 mg Donepezil HCl (Aricept) 5 mg PO HS [facility] Last Admin: 03/24/18 23:18 Dose: Not Given Furosemide (Lasix) 20 mg IVP DAILY [facility] Last Admin: 03/25/18 09:37 Dose: 20 mg Piperacillin Sod/Tazobactam (Sod 3.375 gm/ Sodium Chloride) 100 mls @ 200 mls/ hr IVPB Q8H [facility] PRN Reason: Protocol Last Admin: 03/25/18 17:35 Dose: 200 mls/hr Metoprolol Tartrate (Lopressor) 50 mg PO BID [facility] Last Admin: 03/25/18 17:35 Dose: 50 mg Pantoprazole Sodium (Protonix Ec Tab) 40 mg PO BID [facility] Last Admin: 03/25/18 17:40 Dose: 40 mg Potassium Chloride (K-Dur 20 Meq Er Tab) 20 meq PO BRK [facility] Last Admin: 03/25/18 08:36 Dose: 20 meq Potassium Chloride (K-Dur 20 Meq Er Tab) 20 meq PO ONCE ONE Stop: 03/26/18 20:01 - Labs Labs: 03/25/18 07:27 03/25/18 07:27 PT 12.3 SECONDS (9.7-12.2) H 03/21/18 06:21 INR 1.1 03/21/18 06:21 APTT 32 SECONDS (21-34) 03/21/18 06:21 - Constitutional Appears: Well, Non-toxic - Respiratory Exam Respiratory Exam: Clear to Ausculation Bilateral - Cardiovascular Exam Cardiovascular Exam: REGULAR RHYTHM, +S1, +S2. absent: JVD - GI/Abdominal Exam GI & Abdominal Exam: Soft. absent: Tenderness - Neurological Exam Neurological Exam: CN II-XII Intact Assessment and Plan (1) Episodic atrial fibrillation Assessment & Plan: Currently in NSR Cont with rate control Preserved LV function on echo No anticoagulation due to recent GI bleed No further cardiac tests at this time Status: Acute
--- NOTE | 2018-03-25 22:33 | CP.PCM.PN ---
Subjective - Date & Time of Evaluation Date of Evaluation: 03/25/18 Time of Evaluation: 18:00 - Subjective Subjective: Pt seen and examined at bedside, Objective - Vital Signs/Intake and Output Vital Signs (last 24 hours): Temp Pulse Resp BP Pulse Ox 98.8 F 65 18 155/73 H 95 03/25/18 15:30 03/25/18 16:00 03/25/18 15:30 03/25/18 15:30 03/25/18 15:30 Intake and Output: 03/25/18 03/26/18 18:59 06:59 Intake Total 100 Balance 100 - Medications Medications: Current Medications Acetaminophen (Tylenol 325mg Tab) 650 mg PO Q4H PRN PRN Reason: Temp >100.4 Last Admin: 03/22/18 22:59 Dose: 650 mg Donepezil HCl (Aricept) 5 mg PO HS [facility] Last Admin: 03/25/18 21:13 Dose: 5 mg Furosemide (Lasix) 20 mg IVP DAILY [facility] Last Admin: 03/25/18 09:37 Dose: 20 mg Piperacillin Sod/Tazobactam (Sod 3.375 gm/ Sodium Chloride) 100 mls @ 200 mls/ hr IVPB Q8H [facility] PRN Reason: Protocol Last Admin: 03/25/18 17:35 Dose: 200 mls/hr Metoprolol Tartrate (Lopressor) 50 mg PO BID [facility] Last Admin: 03/25/18 17:35 Dose: 50 mg Pantoprazole Sodium (Protonix Ec Tab) 40 mg PO BID [facility] Last Admin: 03/25/18 17:40 Dose: 40 mg Potassium Chloride (K-Dur 20 Meq Er Tab) 20 meq PO BRK [facility] Last Admin: 03/25/18 08:36 Dose: 20 meq Potassium Chloride (K-Dur 20 Meq Er Tab) 20 meq PO ONCE ONE Stop: 03/26/18 20:01 - Labs Labs: 03/25/18 07:27 03/25/18 07:27 PT 12.3 SECONDS (9.7-12.2) H 03/21/18 06:21 INR 1.1 03/21/18 06:21 APTT 32 SECONDS (21-34) 03/21/18 06:21 Assessment and Plan (1) UTI (urinary tract infection) Status: Acute (2) Septicemia Status: Acute (3) Dehydration Status: Acute (4) Anemia Status: Acute (5) Gastrointestinal hemorrhage Status: Acute (6) Episodic atrial fibrillation Status: Acute
[2018-03-26] MEDS: Piperacillin/Tazobact 3.375 GM in Sodium Chloride 100 ML IVPB SCH ×3 (01:55→19:05)
[2018-03-26 07:42] LABS: BASO # 0.1 K/uL (0.0-0.2); BASO % 0.3 % (0.0-2.0); EOS # 0.1 K/uL (0.0-0.7); EOS % 0.7 % (0.0-4.0); HEMOGLOBIN 9.3 g/dL (11.0-16.0); LYMPH # 1.2 K/uL (1.0-4.3); LYMPH % 5.9 % (20.0-40.0); MEAN CORPUSCULAR HGB CONC 32.3 g/dL (33.0-37.0); MEAN PLATELET VOLUME 8.2 fL (7.2-11.7); MONO # 1.4 K/uL (0.0-0.8); NEUT # 17.7 K/uL (1.8-7.0); NEUT % 86.1 % (50.0-75.0); PLATELET COUNT 388 K/uL (130-400); RBC 4.23 Mil/uL (3.80-5.20); RED CELL DISTRIBUTION WIDTH 19.3 % (11.5-14.5); WHITE BLOOD COUNT 20.6 K/uL (4.8-10.8)
[2018-03-26 07:49] LABS: BLOOD UREA NITROGEN 13 mg/dL (7-17); CALCIUM 8.6 mg/dl (8.6-10.4); GFR AFRICAN-AMERICAN > 60; GFR NON-AFRICAN AMERICAN > 60
[2018-03-26] MEDS: Potassium Chloride 20 mEq ER Tab PO SCH ×2 (07:54→07:56)
[2018-03-26 09:03] LABS: ANISOCYTOSIS SLIGHT; BANDS 1 % (0-2); HYPOCHROMIC SLIGHT; LYMPHOCYTE 5 % (20-40); MONOCYTE 7 % (0-10); NEUTROPHIL 87 % (50-75); OVALOCYTES SLIGHT; PLATELET ESTIMATE NORMAL (NORMAL); POIKILOCYTOSIS SLIGHT; TARGET CELLS SLIGHT; TOTAL CELLS COUNTED 100
[2018-03-26] MEDS: Pantoprazole 40 mg EC Tab PO SCH ×2 (09:08→19:02)
--- NOTE | 2018-03-26 12:41 | PN ---
DATE: 03/26/2018 LOCATION: 651, bed A. SUBJECTIVE: I was called for GI followup by the medical staff in the floor. The entire chart is reviewed including but not limited to the most recent lab and radiology study results, current and the previous medication list, current and the previous medical events. Case discussed with the staff at length. This is an 87-year-old female, seen early in rounds today without reported significant clinical changes, tolerating advanced diet. The entire chart is reviewed including but not limited to the above mentioned activities and the patient is somewhat very poorly cooperative with nursing staff, due to her dementia and agitation, but no reported chest pain, palpitations, significant change of bowel movement. No reported active bleeding. No reported chills or fever. Most recent lab results showed persistent leukocytosis of 24.3, hemoglobin 10, hematocrit 30.7 with low indices, highly suggestive of hypochromic microcytic anemia. Potassium 3.1, CO2 content 21 indicative of metabolic acidosis with blood glucose level 115, increased total bilirubin 1.9, with persistent elevated total troponin level, albumin 2.8 with total protein 5.8. Most recent chest x-ray done two days ago post-upper endoscopy, official report is seen. PHYSICAL EXAMINATION: GENERAL: An 87-year-old female, somewhat agitated. VITAL SIGNS: Afebrile with pulse of 72, respiratory rate 20 to 22, and blood pressure 148/72. HEENT: Showed mildly dry, pale oral mucous membrane. Slightly icteric sclerae bilaterally. HEART: Positive S1 and S2. ABDOMEN: Soft with slight tenderness and slight distention. No mass or organomegaly. No rebound tenderness or guarding. RECTAL: The patient refused. EXTREMITIES: With evidence of mild muscle wasting syndrome. No clubbing, cyanosis, or edema. NEUROLOGICAL: No reported new neurological deficit, sensory or motor. IMPRESSION: 1. Hypochromic microcytic anemia. 2. Endoscopic evidence of gastric ulcer with acute gastritis. 3. Reported history of dementia. 4. Known history of atrial fibrillation. 5. Recent history of hematemesis, none recently. 6. Known history of Alzheimer's disease. 7. Hypertension, status post colostomy. SUGGESTIONS: 1. Continue current management. 2. Correct any underlying electrolyte imbalance. 3. Due to the patient's leukocytosis, repeat chest x-ray and CAT scan of the chest should be considered. 4. Follow up in cancer markers. 6. Further recommendation to follow. It is to be mentioned that the patient has cholelithiasis by CAT scan of the abdominal and also possibility of early stage of cholecystitis should be kept in mind. Due to the patient's reported left-sided nephrolithiasis by CAT scan, Urology consult to be considered and repeat blood culture as well as urine culture should be kept in mind. We will follow up closely with you. Jessica Navas MD [facility] # [id number]
--- NOTE | 2018-03-26 12:42 | CARD ---
APPROVED REPORT Date of service: 03/24/2018 EKG Measurement Heart [id number] <Conclusion> Sinus rhythm with premature supraventricular complexes and with occasional premature ventricular complexes Nonspecific ST abnormality Abnormal ECG
[2018-03-26] MEDS: Magnesium Oxide 400 mg Tab UD PO SCH (14:17)
[2018-03-26] MEDS: Potassium Chloride 20 mEq/15 ml LIQ UD PO ONE ×2 (14:17→14:34)
--- NOTE | 2018-03-26 17:39 | CP.PCM.PN ---
Subjective - Date & Time of Evaluation Date of Evaluation: 03/26/18 Time of Evaluation: 10:40 - Subjective Subjective: Patient seen and examined at bedside this morning. Patient is in no acute distress. Patient is awake and more responsive to commands. Patient denies shortness of breath, chest pain, cough. Patient is afebrile. Patient has no acute complaints. 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 Cardiovascular: Patient denies chest pain, palpitations. Respiratory: Patient denies shortness of breath, sough, snoring, daytime somnolence. Gastrointestinal: Patient denies nausea, vomiting, diarrhea. Neurological: Headache, AAO X 3, normal speech Physical Exam HEENT: Atraumatic, normocephalic, mucuous membranes moist Repiratory: Clear to auscultation bilaterally. No wheezing or rhonchi. No use of accessory muscles. Cardiovascular: +S1/ S2, regular rate and rhythm GI: Normal bowel sounds in all 4 quadrants, no tenderness, no distention Extremities: No LE edema Neurological: Alert, awake, oriented X3 Assessment: 89 year old female patient with past medical history of Alzheimer, hypertension , hyperlipedemia, PEG tube, anemia, gallbladder disease, CKD; patient's exam showed no signs of dyspnea. 1. Dyspnea Status: Acute - CT Scan without contrast 2. UTI Status: Acute - Continue antibiotics 3. Dehydration Status: Acute 4. Episodic atrial fibrillation Status: Acute Objective - Vital Signs/Intake and Output Vital Signs (last 24 hours): Temp Pulse Resp BP Pulse Ox 97.7 F 67 18 153/71 H 95 03/26/18 16:00 03/26/18 16:00 03/26/18 16:00 03/26/18 16:00 03/26/18 16:00 Intake and Output: 03/26/18 03/26/18 06:59 18:59 Intake Total 110 500 Output Total 0 Balance 110 500 - Medications Medications: Current Medications Acetaminophen (Tylenol 325mg Tab) 650 mg PO Q4H PRN PRN Reason: Temp >100.4 Last Admin: 03/22/18 22:59 Dose: 650 mg Donepezil HCl (Aricept) 5 mg PO HS [facility] Last Admin: 03/25/18 21:13 Dose: 5 mg Furosemide (Lasix) 20 mg IVP DAILY [facility] Last Admin: 03/26/18 09:07 Dose: 20 mg Piperacillin Sod/Tazobactam (Sod 3.375 gm/ Sodium Chloride) 100 mls @ 200 mls/ hr IVPB Q8H YAN PRN Reason: Protocol Last Admin: 03/26/18 09:10 Dose: 200 mls/hr Potassium Chloride (Potassium Chloride 20 Meq/100 Ml) 20 meq in 100 mls @ 50 mls/hr IVPB ONCE ONE Stop: 03/26/18 19:14 Magnesium Oxide (Mag-Ox) 400 mg PO DAILY [facility] Stop: 03/28/18 14:01 Last Admin: 03/26/18 14:17 Dose: 400 mg Metoprolol Tartrate (Lopressor) 50 mg PO BID [facility] Last Admin: 03/26/18 09:08 Dose: 50 mg Pantoprazole Sodium (Protonix Ec Tab) 40 mg PO BID [facility] Last Admin: 03/26/18 09:08 Dose: 40 mg Potassium Chloride (K-Dur 20 Meq Er Tab) 20 meq PO BRK [facility] Last Admin: 03/26/18 07:56 Dose: Not Given Potassium Chloride (K-Dur 20 Meq Er Tab) 20 meq PO ONCE ONE Stop: 03/26/18 20:01 - Labs Labs: 03/26/18 07:28 03/26/18 07:28 PT 12.3 SECONDS (9.7-12.2) H 03/21/18 06:21 INR 1.1 03/21/18 06:21 APTT 32 SECONDS (21-34) 03/21/18 06:21
[2018-03-26] MEDS ORDERED: Potassium Chloride 20 mEq ER Tab PO ONE (20:00)
[2018-03-27] MEDS: Piperacillin/Tazobact 3.375 GM in Sodium Chloride 100 ML IVPB SCH (00:40)
--- NOTE | 2018-03-27 07:29 | CP.PCM.PN ---
Subjective - Date & Time of Evaluation Date of Evaluation: 03/26/18 Time of Evaluation: 18:00 - Subjective Subjective: Pt is seen and examined, Objective - Vital Signs/Intake and Output Vital Signs (last 24 hours): Temp Pulse Resp BP Pulse Ox 98.5 F 60 20 147/77 95 03/26/18 23:10 03/26/18 23:10 03/26/18 23:10 03/26/18 23:10 03/26/18 23:10 Intake and Output: 03/27/18 03/27/18 06:59 18:59 Intake Total 650 Balance 650 - Medications Medications: Current Medications Acetaminophen (Tylenol 325mg Tab) 650 mg PO Q4H PRN PRN Reason: Temp >100.4 Last Admin: 03/22/18 22:59 Dose: 650 mg Donepezil HCl (Aricept) 5 mg PO HS [facility] Last Admin: 03/26/18 21:21 Dose: 5 mg Furosemide (Lasix) 20 mg IVP DAILY [facility] Last Admin: 03/26/18 09:07 Dose: 20 mg Piperacillin Sod/Tazobactam (Sod 3.375 gm/ Sodium Chloride) 100 mls @ 200 mls/ hr IVPB Q8H YAN PRN Reason: Protocol Last Admin: 03/27/18 00:40 Dose: 200 mls/hr Losartan Potassium (Cozaar) 50 mg PO DAILY [facility] Magnesium Oxide (Mag-Ox) 400 mg PO DAILY [facility] Stop: 03/28/18 14:01 Last Admin: 03/26/18 14:17 Dose: 400 mg Metoprolol Tartrate (Lopressor) 50 mg PO BID [facility] Last Admin: 03/26/18 19:02 Dose: 50 mg Pantoprazole Sodium (Protonix Ec Tab) 40 mg PO BID [facility] Last Admin: 03/26/18 19:02 Dose: 40 mg Potassium Chloride (K-Dur 20 Meq Er Tab) 20 meq PO BRK [facility] Last Admin: 03/26/18 07:56 Dose: Not Given - Labs Labs: 03/26/18 07:28 03/26/18 07:28 PT 12.3 SECONDS (9.7-12.2) H 03/21/18 06:21 INR 1.1 03/21/18 06:21 APTT 32 SECONDS (21-34) 03/21/18 06:21 Assessment and Plan (1) UTI (urinary tract infection) Status: Acute (2) Septicemia Status: Acute (3) Dehydration Status: Acute (4) Anemia Status: Acute (5) Gastrointestinal hemorrhage Status: Acute (6) Episodic atrial fibrillation Status: Acute
[2018-03-27] MEDS: Magnesium Oxide 400 mg Tab UD PO SCH (09:27)
[2018-03-27] MEDS: Pantoprazole 40 mg EC Tab PO SCH ×2 (09:27→18:00)
--- NOTE | 2018-03-27 10:07 | RAD ---
Date of service: 03/27/2018 HISTORY: f/u pneumonia COMPARISON: 03/23/2018 FINDINGS: LUNGS: There is interval development of pulmonary edema. There is severe pulmonary venous congestion with pulmonary redistribution. There is also interstitial pulmonary edema. PLEURA: There are layering pleural effusions, no pneumothorax apparent. CARDIOVASCULAR: The cardiomediastinal silhouette is stable. OSSEOUS STRUCTURES: No significant abnormalities. VISUALIZED UPPER ABDOMEN: Normal. OTHER FINDINGS: None. IMPRESSION: Worsening congestive heart failure with presumable pulmonary edema and worsening pleural effusions.
[2018-03-27 11:10] LABS: BASO # 0.1 K/uL (0.0-0.2); BASO % 0.4 % (0.0-2.0); EOS # 0.2 K/uL (0.0-0.7); EOS % 1.1 % (0.0-4.0); HEMOGLOBIN 10.2 g/dL (11.0-16.0); LYMPH # 1.3 K/uL (1.0-4.3); LYMPH % 7.6 % (20.0-40.0); MEAN CELL VOLUME 68.2 fL (81.0-99.0); MEAN CORPUSCULAR HEMOGLOBIN 21.7 pg (27.0-31.0); MEAN CORPUSCULAR HGB CONC 31.9 g/dL (33.0-37.0); MEAN PLATELET VOLUME 8.2 fL (7.2-11.7); MONO # 1.3 K/uL (0.0-0.8); MONO % 7.7 % (0.0-10.0); NEUT # 13.7 K/uL (1.8-7.0); NEUT % 83.2 % (50.0-75.0); PLATELET COUNT 442 K/uL (130-400); RBC 4.71 Mil/uL (3.80-5.20); RED CELL DISTRIBUTION WIDTH 19.5 % (11.5-14.5); WHITE BLOOD COUNT 16.4 K/uL (4.8-10.8)
[2018-03-27 11:26] LABS: BLOOD UREA NITROGEN 13 mg/dL (7-17); CALCIUM 8.5 mg/dl (8.6-10.4); GFR AFRICAN-AMERICAN > 60; GFR NON-AFRICAN AMERICAN > 60
[2018-03-27 11:52] LABS: BANDS 2 % (0-2); EOSINOPHIL 1 % (0-4); LYMPHOCYTE 6 % (20-40); MONOCYTE 2 % (0-10); NEUTROPHIL 89 % (50-75); TOTAL CELLS COUNTED 100
[2018-03-27 11:53] LABS: ANISOCYTOSIS SLIGHT; MICROCYTOSIS SLIGHT; PLATELET ESTIMATE SLIGHTLY INCREASED (NORMAL)
[2018-03-27 11:54] LABS: HYPOCHROMIC MODERATE; POLYCHROMIC SLIGHT; TARGET CELLS SLIGHT
[2018-03-27] MEDS ORDERED: Piperacill/Tazo 3.375gm in Dex 3.375 GM/50 ML BAG IVPB ONE (12:00)
[2018-03-27] MEDS ORDERED: Piperacillin/Tazobact 3.375 gm 100 ML IVPB ONE (12:00)
--- NOTE | 2018-03-27 12:32 | CP.PCM.PN ---
Subjective - Date & Time of Evaluation Date of Evaluation: 03/27/18 - Subjective Subjective: Patient seen and examined at bedside this morning. Patient is in no acute distress. Patient is awake and alert. Patient denies shortness of breath, chest pain, cough. Patient reports no problems with breathing and refuses CT scan of chest. Patient is afebrile. Patient has no acute complaints. 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 Cardiovascular: Patient denies chest pain, palpitations. Respiratory: Patient denies shortness of breath, sough, snoring, daytime somnolence. Gastrointestinal: Patient denies nausea, vomiting, diarrhea. Neurological: Headache, AAO X 3, normal speech Physical Exam HEENT: Atraumatic, normocephalic, mucuous membranes moist Repiratory: Clear to auscultation bilaterally. No wheezing or rhonchi. No use of accessory muscles. Cardiovascular: +S1/ S2, regular rate and rhythm GI: Normal bowel sounds in all 4 quadrants, no tenderness, no distention Extremities: No LE edema Neurological: Alert, awake, oriented X3 Assessment: 89 year old female patient with past medical history of Alzheimer, hypertension , hyperlipedemia, PEG tube, anemia, gallbladder disease, CKD; patient's exam showed no signs of dyspnea. 1. Dyspnea Status: Acute - refusing CT Scan without contrast 2. UTI Status: Acute - Continue antibiotics 3. Dehydration Status: Acute 4. Episodic atrial fibrillation Status: Acute Objective - Vital Signs/Intake and Output Vital Signs (last 24 hours): Temp Pulse Resp BP Pulse Ox 98.0 F 75 20 136/80 96 03/27/18 07:00 03/27/18 09:22 03/27/18 07:00 03/27/18 09:27 03/27/18 07:00 Intake and Output: 03/27/18 03/27/18 06:59 18:59 Intake Total 650 Balance 650 - Medications Medications: Current Medications Acetaminophen (Tylenol 325mg Tab) 650 mg PO Q4H PRN PRN Reason: Temp >100.4 Last Admin: 03/22/18 22:59 Dose: 650 mg Donepezil HCl (Aricept) 5 mg PO HS [facility] Last Admin: 03/26/18 21:21 Dose: 5 mg Furosemide (Lasix) 20 mg IVP DAILY [facility] Last Admin: 03/27/18 09:27 Dose: 20 mg Potassium Chloride (Potassium Chloride 10 Meq/100 Ml) 10 meq in 100 mls @ 100 mls/hr IVPB ONCE ONE Stop: 03/27/18 12:59 Losartan Potassium (Cozaar) 50 mg PO DAILY [facility] Last Admin: 03/27/18 09:27 Dose: 50 mg Magnesium Oxide (Mag-Ox) 400 mg PO DAILY [facility] Stop: 03/28/18 14:01 Last Admin: 03/27/18 09:27 Dose: 400 mg Metoprolol Tartrate (Lopressor) 50 mg PO BID [facility] Last Admin: 03/27/18 09:27 Dose: 50 mg Pantoprazole Sodium (Protonix Ec Tab) 40 mg PO BID [facility] Last Admin: 03/27/18 09:27 Dose: 40 mg Potassium Chloride (K-Dur 20 Meq Er Tab) 20 meq PO BRK [facility] Last Admin: 03/26/18 07:56 Dose: Not Given - Labs Labs: 03/27/18 11:05 03/27/18 11:05 PT 12.3 SECONDS (9.7-12.2) H 03/21/18 06:21 INR 1.1 03/21/18 06:21 APTT 32 SECONDS (21-34) 03/21/18 06:21
--- NOTE | 2018-03-27 13:51 | PN ---
DATE: 03/27/2018 LOCATION: 651, bed A. SUBJECTIVE: This is an 87-year-old female seen and examined in rounds today without reported significant clinical changes or reported active bleeding, is still with period of mild agitation and restlessness. The entire chart is reviewed including but not limited to the most recent lab and radiology study results, current and the previous medication list, current and the previous medical events. Case discussed with the staff at length. LABORATORY DATA: Today's lab showed , hemoglobin 10.2, hematocrit 32.1 with low indices, highly suggestive of hypochromic microcytic anemia or thrombocytosis of 442 with potassium 3.5, blood glucose level 149, calcium 8.5 with the latest albumin low as well as total protein with increased total troponin level. Today's chest x-ray, official report is seen indicative of congestive heart failure with pulmonary edema and pleural effusion. PHYSICAL EXAMINATION: GENERAL: An 87-year-old female. VITAL SIGNS: Afebrile with pulse of 72, respiratory rate 20 to 22, and blood pressure 130/82. HEENT: Showed pale, dry oral mucous membrane. Nonicteric sclerae. LUNGS: Few scattered crepitation, decreased air entry at bases. HEART: Positive S1 and S2. ABDOMEN: Soft with slight generalized tenderness. No mass or organomegaly. No rebound tenderness or guarding. EXTREMITIES: With lower extremity slight edematous changes. No clubbing or cyanosis. NEUROLOGICAL: No reported new neurological deficit, sensory or motor. IMPRESSION: 1. Hypochromic microcytic anemia that could be secondary to chronic disease versus lower gastrointestinal blood loss with re-exacerbation of peptic ulcer disease. 2. To rule out occult gastrointestinal malignancy. 3. Known history of hyperlipidemia, hypertension, anemia, malnutrition with status post colostomy by history. SUGGESTIONS: 1. Continue current management. 2. Peripheral versus central hyperalimentation. 3. Neurology and Psychiatry re-evaluation. 4. Follow up in cancer markers. 5. Further recommendation to follow. Jessica Navas MD
[2018-03-27] MEDS ORDERED: Nitroglycerin 2% Ointment Foilpak UD TOP ONE (17:30)
--- NOTE | 2018-03-28 00:20 | CP.PCM.PN ---
Subjective - Date & Time of Evaluation Date of Evaluation: 03/27/18 Time of Evaluation: 17:35 - Subjective Subjective: Patient seen and examined at bedside this morning. Patient is in no acute distress. Patient is awake and alert. Patient denies shortness of breath, chest pain, cough. Patient reports no problems with breathing and refuses CT scan of chest. Patient is afebrile. Patient has no acute complaints. Objective - Vital Signs/Intake and Output Vital Signs (last 24 hours): Temp Pulse Resp BP Pulse Ox 99 F 66 18 124/78 96 03/27/18 17:24 03/27/18 17:24 03/27/18 17:24 03/27/18 19:35 03/27/18 17:24 Intake and Output: 03/27/18 03/28/18 18:59 06:59 Intake Total 350 Output Total 100 Balance 250 - Medications Medications: Current Medications Acetaminophen (Tylenol 325mg Tab) 650 mg PO Q4H PRN PRN Reason: Temp >100.4 Last Admin: 03/22/18 22:59 Dose: 650 mg Donepezil HCl (Aricept) 5 mg PO HS [facility] Last Admin: 03/27/18 21:54 Dose: Not Given Furosemide (Lasix) 20 mg IVP DAILY [facility] Last Admin: 03/27/18 09:27 Dose: 20 mg Losartan Potassium (Cozaar) 50 mg PO DAILY [facility] Last Admin: 03/27/18 09:27 Dose: 50 mg Magnesium Oxide (Mag-Ox) 400 mg PO DAILY [facility] Stop: 03/28/18 14:01 Last Admin: 03/27/18 09:27 Dose: 400 mg Metoprolol Tartrate (Lopressor) 50 mg PO BID [facility] Last Admin: 03/27/18 17:27 Dose: Not Given Pantoprazole Sodium (Protonix Ec Tab) 40 mg PO BID [facility] Last Admin: 03/27/18 18:00 Dose: 40 mg Potassium Chloride (K-Dur 20 Meq Er Tab) 20 meq PO BRK [facility] Last Admin: 03/26/18 07:56 Dose: Not Given - Labs Labs: 03/27/18 11:05 03/27/18 11:05 PT 12.3 SECONDS (9.7-12.2) H 03/21/18 06:21 INR 1.1 03/21/18 06:21 APTT 32 SECONDS (21-34) 03/21/18 06:21 Assessment and Plan (1) UTI (urinary tract infection) Status: Acute (2) Septicemia Status: Acute (3) Dehydration Status: Acute (4) Anemia Status: Acute (5) Gastrointestinal hemorrhage Status: Acute (6) Episodic atrial fibrillation Status: Acute
[2018-03-28 06:45] LABS: BLOOD UREA NITROGEN 15 mg/dL (7-17); CALCIUM 8.3 mg/dl (8.6-10.4); GFR AFRICAN-AMERICAN > 60; GFR NON-AFRICAN AMERICAN > 60
[2018-03-28] MEDS: Magnesium Sulfate 1 gm in D5W 1 GM/100 ML BAG IVPB SCH ×4 (09:19→11:00)
[2018-03-28] MEDS: Pantoprazole 40 mg EC Tab PO SCH ×3 (09:24→17:44)
--- NOTE | 2018-03-28 11:04 | PN ---
DATE: 03/28/2018 LOCATION: 651, bed A. HISTORY OF PRESENT ILLNESS: This is an 87-year-old female seen early in rounds today, appears to be awake, alert, with period of restlessness, and agitation with slight disorientation, refusing any oxygen supplement by nasal cannula with less oral intake. The entire chart is reviewed including, but not limited to the most recent lab and radiology study results, current and the previous medication list, current and the previous medical events. Today's lab results showed potassium of 3.1, creatinine of 0.6, blood glucose level 121, calcium 8.3, and reported magnesium of 1.4, and the most recent CBC yesterday showed leukocytosis with low hemoglobin and hematocrit and low indices highly suggestive of and indicative of hypochromic microcytic anemia. PHYSICAL EXAMINATION: GENERAL: An 87-year-old female. Denied any actual chest pain, palpitation, bleeding, or significant change of bowel movement recently. VITAL SIGNS: The patient is afebrile with pulse of 74, respiratory rate 20 to 22, and blood pressure of 136/76. HEENT: Showed pale dry, oral mucoid membrane. Nonicteric sclerae. LUNGS: Few scattered crepitation. Decreased air entry at bases. HEART: Positive S1 and S2. ABDOMEN: Soft with mild generalized tenderness. No mass or organomegaly. No rebound tenderness or guarding. RECTAL: The patient refused. EXTREMITIES: With slight lower extremity edematous changes. No clubbing or cyanosis. NEUROLOGIC: No reported new neurological deficits, sensory or motor. No reported new focal deficits. Peripheral pulses are weak bilaterally, but present. IMPRESSION: 1. Hypochromic microcytic anemia with peptic ulcer disease by a recent history. The possibility of lower gastrointestinal blood loss was raised versus occult gastrointestinal malignancy. 2. Congestive heart failure with mild pulmonary edema by the most recent chest x-ray. 3. Known history of hypertension. 4. Malnutrition with hypoalbuminemia and hypoproteinemia. 5. Electrolyte imbalance with hypokalemia, hypocalcemia, and hypomagnesemia. 6. Dehydration by recent history. 7. Leukocytosis with septicemia, appears to be secondary to an early phase of pneumonia versus urinary tract infection. 8. Hyperglycemia by recent history. SUGGESTIONS: 1. Continue current management. 2. Correct an underlying coagulopathy and electrolyte imbalance. 3. The patient is refusing any further GI workup, including colonoscopy and barium enema as per today again. We will follow up closely with you. Jessica Navas MD
--- NOTE | 2018-03-28 12:32 | CP.PCM.PN ---
Subjective - Date & Time of Evaluation Date of Evaluation: 03/28/18 Time of Evaluation: 11:00 - Subjective Subjective: Patient seen and examined Lying comfortably in no acute distress Patient is noncooperative Chest x-rays showed worsening congestion and pleural effusion Echocardiogram with normal ejection fraction Most likely diastolic dysfunction, continue Lasix Continue treatment for UTI magnesium and potassium Patient still refusing CAT scan Objective - Vital Signs/Intake and Output Vital Signs (last 24 hours): Temp Pulse Resp BP Pulse Ox 98.9 F 79 18 117/72 94 L 03/28/18 07:10 03/28/18 07:10 03/28/18 07:10 03/28/18 09:23 03/28/18 07:10 - Medications Medications: Current Medications Acetaminophen (Tylenol 325mg Tab) 650 mg PO Q4H PRN PRN Reason: Temp >100.4 Last Admin: 03/22/18 22:59 Dose: 650 mg Donepezil HCl (Aricept) 5 mg PO HS [facility] Last Admin: 03/27/18 21:54 Dose: Not Given Furosemide (Lasix) 20 mg IVP DAILY [facility] Last Admin: 03/28/18 09:23 Dose: 20 mg Potassium Chloride (Potassium Chloride 10 Meq/100 Ml) 10 meq in 100 mls @ 100 mls/hr IVPB Q2 [facility] Stop: 03/28/18 12:59 Last Admin: 03/28/18 12:16 Dose: 100 mls/hr Losartan Potassium (Cozaar) 50 mg PO DAILY [facility] Last Admin: 03/28/18 09:24 Dose: 50 mg Metoprolol Tartrate (Lopressor) 50 mg PO BID [facility] Last Admin: 03/28/18 09:33 Dose: Not Given Pantoprazole Sodium (Protonix Ec Tab) 40 mg PO BID [facility] Last Admin: 03/28/18 09:33 Dose: Not Given Potassium Chloride (K-Dur 20 Meq Er Tab) 20 meq PO BRK [facility] Last Admin: 03/26/18 07:56 Dose: Not Given - Labs Labs: 03/27/18 11:05 03/28/18 06:14 PT 12.3 SECONDS (9.7-12.2) H 03/21/18 06:21 INR 1.1 03/21/18 06:21 APTT 32 SECONDS (21-34) 03/21/18 06:21 - Head Exam Head Exam: ATRAUMATIC, NORMOCEPHALIC - ENT Exam ENT Exam: Mucous Membranes Moist - Neck Exam Neck Exam: Normal Inspection - Respiratory Exam Respiratory Exam: Decreased Breath Sounds - Cardiovascular Exam Cardiovascular Exam: REGULAR RHYTHM - GI/Abdominal Exam GI & Abdominal Exam: Soft, Normal Bowel Sounds Assessment and Plan (1) CHF (congestive heart failure) Status: Acute (2) UTI (urinary tract infection) Status: Acute
[2018-03-28] MEDS: Piperacill/Tazo 3.375gm in Dex 3.375 GM/50 ML BAG IVPB SCH ×2 (17:43→21:44)
--- NOTE | 2018-03-29 02:14 | CP.PCM.PN ---
Subjective - Date & Time of Evaluation Date of Evaluation: 03/28/18 Time of Evaluation: 18:00 - Subjective Subjective: Pt seen and examined at bedside Objective - Vital Signs/Intake and Output Vital Signs (last 24 hours): Temp Pulse Resp BP Pulse Ox 98.8 F 79 20 104/47 L 91 L 03/28/18 23:05 03/28/18 23:05 03/28/18 23:05 03/28/18 23:05 03/28/18 23:05 Intake and Output: 03/28/18 03/29/18 18:59 06:59 Intake Total 700 400 Output Total 50 Balance 700 350 - Medications Medications: Current Medications Acetaminophen (Tylenol 325mg Tab) 650 mg PO Q4H PRN PRN Reason: Temp >100.4 Last Admin: 03/22/18 22:59 Dose: 650 mg Donepezil HCl (Aricept) 10 mg PO HS [facility] Last Admin: 03/28/18 21:48 Dose: 10 mg Furosemide (Lasix) 20 mg IVP DAILY [facility] Last Admin: 03/28/18 09:23 Dose: 20 mg Piperacillin Sod/Tazobactam Sod (Zosyn 3.375 Gm Iv Premix) 3.375 gm in 50 mls @ 100 mls/hr IVPB Q6H YAN PRN Reason: Protocol Last Admin: 03/28/18 21:44 Dose: 100 mls/hr Losartan Potassium (Cozaar) 50 mg PO DAILY [facility] Last Admin: 03/28/18 09:24 Dose: 50 mg Magnesium Oxide (Mag-Ox) 400 mg PO DAILY [facility] Stop: 04/01/18 10:01 Metoprolol Tartrate (Lopressor) 50 mg PO BID [facility] Last Admin: 03/28/18 17:44 Dose: 50 mg Pantoprazole Sodium (Protonix Ec Tab) 40 mg PO BID [facility] Last Admin: 03/28/18 17:44 Dose: 40 mg Potassium Chloride (K-Dur 20 Meq Er Tab) 20 meq PO DAILY [facility] - Labs Labs: 03/27/18 11:05 03/28/18 06:14 PT 12.3 SECONDS (9.7-12.2) H 03/21/18 06:21 INR 1.1 03/21/18 06:21 APTT 32 SECONDS (21-34) 03/21/18 06:21 Assessment and Plan (1) UTI (urinary tract infection) Status: Acute (2) Septicemia Status: Acute (3) Dehydration Status: Acute (4) Anemia Status: Acute (5) Gastrointestinal hemorrhage Status: Acute (6) Episodic atrial fibrillation Status: Acute
[2018-03-29] MEDS: Piperacill/Tazo 3.375gm in Dex 3.375 GM/50 ML BAG IVPB SCH ×4 (04:09→21:30)
[2018-03-29 07:24] LABS: BASO # 0.1 K/uL (0.0-0.2); BASO % 0.4 % (0.0-2.0); EOS # 0.3 K/uL (0.0-0.7); EOS % 1.5 % (0.0-4.0); HEMOGLOBIN 10.7 g/dL (11.0-16.0); LYMPH # 1.5 K/uL (1.0-4.3); LYMPH % 7.2 % (20.0-40.0); MEAN CORPUSCULAR HEMOGLOBIN 22.2 pg (27.0-31.0); MEAN CORPUSCULAR HGB CONC 32.7 g/dL (33.0-37.0); MONO # 1.5 K/uL (0.0-0.8); MONO % 7.1 % (0.0-10.0); NEUT # 17.2 K/uL (1.8-7.0); NEUT % 83.8 % (50.0-75.0); PLATELET COUNT 453 K/uL (130-400); RBC 4.82 Mil/uL (3.80-5.20); RED CELL DISTRIBUTION WIDTH 19.7 % (11.5-14.5); WHITE BLOOD COUNT 20.5 K/uL (4.8-10.8)
[2018-03-29 07:57] LABS: BLOOD UREA NITROGEN 15 mg/dL (7-17); CALCIUM 8.2 mg/dl (8.6-10.4); GFR AFRICAN-AMERICAN > 60; GFR NON-AFRICAN AMERICAN > 60
[2018-03-29 08:39] LABS: EOSINOPHIL 1 % (0-4); LYMPHOCYTE 10 % (20-40); MONOCYTE 3 % (0-10); NEUTROPHIL 86 % (50-75); TOTAL CELLS COUNTED 100
[2018-03-29 08:40] LABS: ANISOCYTOSIS SLIGHT; PLATELET ESTIMATE SLIGHTLY INCREASED (NORMAL)
[2018-03-29 08:41] LABS: HYPOCHROMIC SLIGHT; MICROCYTOSIS SLIGHT; OVALOCYTES SLIGHT; POLYCHROMIC SLIGHT
--- NOTE | 2018-03-29 09:33 | CARD ---
APPROVED REPORT Date of service: 03/21/2018 EKG Measurement Heart [id number] <Conclusion> Atrial fibrillation with rapid ventricular response T wave abnormality, consider inferior ischemia Abnormal ECG
[2018-03-29] MEDS: Pantoprazole 40 mg EC Tab PO SCH ×2 (10:05→17:07)
[2018-03-29] MEDS: Magnesium Oxide 400 mg Tab UD PO SCH (10:05)
[2018-03-29] MEDS: Potassium Chloride 20 mEq ER Tab PO SCH (10:10)
[2018-03-29] MEDS: Potassium Chloride 20 mEq/15 ml LIQ UD PO SCH ×2 (12:37→17:33)
--- NOTE | 2018-03-29 14:09 | PN ---
DATE: 03/29/2018 LOCATION: 651, bed A. SUBJECTIVE: This is an 87-year-old female seen and examined in rounds earlier today, somewhat agitated, refusing any treatment by any means or further workup. The entire chart is reviewed including but not limited to the most recent lab and radiology study results, current and previous medication list, current and previous medical events. Case discussed with the staff. It should be mentioned that the patient denied any chest pain, significant shortness of breath, palpitations, or chills or fever but still somewhat with less appetite and less oral intake. Today's lab showed leukocytosis of 20.5, hemoglobin 10.7, hematocrit 33.8 with low indices; highly suggest hypochromic microcytic anemia or thrombocytosis of 3.4, blood glucose level 115. Calcium 8.2 with previously reported low albumin and low total protein. PHYSICAL EXAMINATION: GENERAL: An 87-year-old female. VITAL SIGNS: Afebrile with pulse of 80, respiratory rate 18 to 20, blood pressure of 154/82. HEENT: Showed pale, dry oral mucous membranes. Nonicteric sclerae. LUNGS: A few scattered crepitation. Decreased air entry at bases. HEART: Positive S1 and S2. ABDOMEN: Soft with slight generalized tenderness. No mass or organomegaly. RECTAL: The patient refused. EXTREMITIES: With evidence of muscle wasting syndrome. NEUROLOGIC: No reported new neurological deficits, sensory or motor . IMPRESSION: 1. Hypochromic microcytic anemia; again, the possibility of lower gastrointestinal blood loss is raised. The patient so far refusing any further workup. 2. Peptic ulcer disease. 3. Congestive heart failure with reported pulmonary edema by the most recent radiology study results. 4. Known history of hypertension. 5. Malnutrition with hypoalbuminemia and hypoproteinemia. 6. Leukocytosis with septicemia with possible urinary tract infection and/or pneumonia. 7. Recent episode of hyperglycemia by recent history. SUGGESTIONS: 1. Agree with your plan. 2. Repeat stool for occult blood. 3. Follow up cancer markers. 4. Peripheral hyperalimentation. Correct any underlying electrolyte imbalance. Further recommendations to follow. It has to be mentioned that due to the patient's reported left sided nephrolithiasis, Urology consultation to be considered and the renal ultrasound to be ordered. Jessica Navas MD [facility] # [id number]
[2018-03-29 15:55] VITALS: RESP 20
[2018-03-29] MEDS ORDERED: Potassium Chloride 20 mEq/15 ml LIQ UD PO SCH (20:00)
[2018-03-30] MEDS: Piperacill/Tazo 3.375gm in Dex 3.375 GM/50 ML BAG IVPB SCH ×3 (06:00→18:02)
--- NOTE | 2018-03-30 10:28 | CP.PCM.PN ---
Subjective - Date & Time of Evaluation Date of Evaluation: 03/29/18 Time of Evaluation: 18:00 - Subjective Subjective: Pt seen and examined at bedside Objective - Vital Signs/Intake and Output Vital Signs (last 24 hours): Temp Pulse Resp BP Pulse Ox 98.1 F 90 20 125/73 95 03/30/18 07:15 03/30/18 07:15 03/30/18 07:15 03/30/18 07:15 03/30/18 07:15 Intake and Output: 03/30/18 03/30/18 06:59 18:59 Intake Total 500 Output Total 250 Balance 250 - Medications Medications: Current Medications Acetaminophen (Tylenol 325mg Tab) 650 mg PO Q4H PRN PRN Reason: Temp >100.4 Last Admin: 03/22/18 22:59 Dose: 650 mg Donepezil HCl (Aricept) 10 mg PO HS [facility] Last Admin: 03/29/18 21:26 Dose: 10 mg Furosemide (Lasix) 20 mg IVP DAILY [facility] Last Admin: 03/29/18 10:05 Dose: 20 mg Piperacillin Sod/Tazobactam Sod (Zosyn 3.375 Gm Iv Premix) 3.375 gm in 50 mls @ 100 mls/hr IVPB Q6H YAN PRN Reason: Protocol Last Admin: 03/30/18 06:00 Dose: 100 mls/hr Losartan Potassium (Cozaar) 50 mg PO DAILY [facility] Last Admin: 03/29/18 10:00 Dose: 50 mg Magnesium Oxide (Mag-Ox) 400 mg PO DAILY [facility] Stop: 04/01/18 10:01 Last Admin: 03/29/18 10:05 Dose: 400 mg Metoprolol Tartrate (Lopressor) 50 mg PO BID [facility] Last Admin: 03/29/18 17:07 Dose: 50 mg Pantoprazole Sodium (Protonix Ec Tab) 40 mg PO BID [facility] Last Admin: 03/29/18 17:07 Dose: 40 mg Potassium Chloride (K-Dur 20 Meq Er Tab) 20 meq PO DAILY [facility] Last Admin: 03/29/18 10:10 Dose: Not Given - Labs Labs: 03/29/18 07:15 03/29/18 07:15 PT 12.3 SECONDS (9.7-12.2) H 03/21/18 06:21 INR 1.1 03/21/18 06:21 APTT 32 SECONDS (21-34) 03/21/18 06:21 Assessment and Plan (1) UTI (urinary tract infection) Status: Acute (2) Septicemia Status: Acute (3) Dehydration Status: Acute (4) Anemia Status: Acute (5) Gastrointestinal hemorrhage Status: Acute (6) Episodic atrial fibrillation Status: Acute
--- NOTE | 2018-03-30 10:29 | CP.PCM.PN ---
Subjective - Date & Time of Evaluation Date of Evaluation: 03/30/18 Time of Evaluation: 18:00 - Subjective Subjective: Pt seen and examined at bedside Objective - Vital Signs/Intake and Output Vital Signs (last 24 hours): Temp Pulse Resp BP Pulse Ox 98.1 F 90 20 125/73 95 03/30/18 07:15 03/30/18 07:15 03/30/18 07:15 03/30/18 07:15 03/30/18 07:15 Intake and Output: 03/30/18 03/30/18 06:59 18:59 Intake Total 500 Output Total 250 Balance 250 - Medications Medications: Current Medications Acetaminophen (Tylenol 325mg Tab) 650 mg PO Q4H PRN PRN Reason: Temp >100.4 Last Admin: 03/22/18 22:59 Dose: 650 mg Donepezil HCl (Aricept) 10 mg PO HS [facility] Last Admin: 03/29/18 21:26 Dose: 10 mg Furosemide (Lasix) 20 mg IVP DAILY [facility] Last Admin: 03/29/18 10:05 Dose: 20 mg Piperacillin Sod/Tazobactam Sod (Zosyn 3.375 Gm Iv Premix) 3.375 gm in 50 mls @ 100 mls/hr IVPB Q6H YAN PRN Reason: Protocol Last Admin: 03/30/18 06:00 Dose: 100 mls/hr Losartan Potassium (Cozaar) 50 mg PO DAILY [facility] Last Admin: 03/29/18 10:00 Dose: 50 mg Magnesium Oxide (Mag-Ox) 400 mg PO DAILY [facility] Stop: 04/01/18 10:01 Last Admin: 03/29/18 10:05 Dose: 400 mg Metoprolol Tartrate (Lopressor) 50 mg PO BID [facility] Last Admin: 03/29/18 17:07 Dose: 50 mg Pantoprazole Sodium (Protonix Ec Tab) 40 mg PO BID [facility] Last Admin: 03/29/18 17:07 Dose: 40 mg Potassium Chloride (K-Dur 20 Meq Er Tab) 20 meq PO DAILY [facility] Last Admin: 03/29/18 10:10 Dose: Not Given - Labs Labs: 03/29/18 07:15 03/29/18 07:15 PT 12.3 SECONDS (9.7-12.2) H 03/21/18 06:21 INR 1.1 03/21/18 06:21 APTT 32 SECONDS (21-34) 03/21/18 06:21 Assessment and Plan (1) UTI (urinary tract infection) Status: Acute (2) Septicemia Status: Acute (3) Dehydration Status: Acute (4) Anemia Status: Acute (5) Gastrointestinal hemorrhage Status: Acute (6) Episodic atrial fibrillation Status: Acute
[2018-03-30] MEDS: Magnesium Oxide 400 mg Tab UD PO SCH (10:56)
[2018-03-30] MEDS: Pantoprazole 40 mg EC Tab PO SCH ×2 (10:56→18:02)
[2018-03-30] MEDS: Potassium Chloride 20 mEq ER Tab PO SCH (10:57)
[2018-03-30 15:20] LABS: BASO # 0.1 K/uL (0.0-0.2); BASO % 0.5 % (0.0-2.0); EOS # 0.3 K/uL (0.0-0.7); EOS % 1.5 % (0.0-4.0); HEMOGLOBIN 11.1 g/dL (11.0-16.0); LYMPH # 1.9 K/uL (1.0-4.3); LYMPH % 9.5 % (20.0-40.0); MEAN CELL VOLUME 68.6 fL (81.0-99.0); MEAN CORPUSCULAR HEMOGLOBIN 21.9 pg (27.0-31.0); MEAN PLATELET VOLUME 8.2 fL (7.2-11.7); MONO # 1.2 K/uL (0.0-0.8); NEUT # 16.2 K/uL (1.8-7.0); NEUT % 82.5 % (50.0-75.0); NRBC % 0.1 % (0.0-2.0); PLATELET COUNT 501 K/uL (130-400); RBC 5.07 Mil/uL (3.80-5.20); WHITE BLOOD COUNT 19.7 K/uL (4.8-10.8)
[2018-03-30 15:41] LABS: BLOOD UREA NITROGEN 20 mg/dL (7-17); CALCIUM 8.4 mg/dl (8.6-10.4); GFR AFRICAN-AMERICAN > 60; GFR NON-AFRICAN AMERICAN > 60
[2018-03-30 15:48] LABS: BANDS 3 % (0-2); BASOPHIL 1 % (0-2); MYELOCYTE 1 % (0-0); NEUTROPHIL 82 % (50-75); TOTAL CELLS COUNTED 100
[2018-03-30 15:49] LABS: ANISOCYTOSIS MODERATE; HYPOCHROMIC MODERATE; LYMPHOCYTE 9 % (20-40); MICROCYTOSIS SLIGHT; MONOCYTE 4 % (0-10); PLATELET ESTIMATE INCREASED (NORMAL)
[2018-03-30 16:12] VITALS: BP 114/80; PULSE 79; TEMP 98; O2SAT 94
--- NOTE | 2018-03-30 16:36 | CP.PCM.PN ---
Subjective - Date & Time of Evaluation Date of Evaluation: 03/30/18 Time of Evaluation: 11:00 - Subjective Subjective: Awake, responsive, remains weak, NAD. Objective - Vital Signs/Intake and Output Vital Signs (last 24 hours): Temp Pulse Resp BP Pulse Ox 98 F 79 20 114/80 94 L 03/30/18 15:00 03/30/18 15:00 03/30/18 15:00 03/30/18 15:00 03/30/18 15:00 Intake and Output: 03/30/18 03/30/18 06:59 18:59 Intake Total 500 Output Total 250 Balance 250 - Medications Medications: Current Medications Acetaminophen (Tylenol 325mg Tab) 650 mg PO Q4H PRN PRN Reason: Temp >100.4 Last Admin: 03/22/18 22:59 Dose: 650 mg Donepezil HCl (Aricept) 10 mg PO HS [facility] Last Admin: 03/29/18 21:26 Dose: 10 mg Furosemide (Lasix) 20 mg IVP DAILY [facility] Last Admin: 03/30/18 10:57 Dose: Not Given Piperacillin Sod/Tazobactam Sod (Zosyn 3.375 Gm Iv Premix) 3.375 gm in 50 mls @ 100 mls/hr IVPB Q6H [facility] PRN Reason: Protocol Last Admin: 03/30/18 10:56 Dose: 100 mls/hr Losartan Potassium (Cozaar) 50 mg PO DAILY [facility] Last Admin: 03/30/18 10:57 Dose: Not Given Magnesium Oxide (Mag-Ox) 400 mg PO DAILY [facility] Stop: 04/01/18 10:01 Last Admin: 03/30/18 10:56 Dose: 400 mg Metoprolol Tartrate (Lopressor) 50 mg PO BID [facility] Last Admin: 03/30/18 10:57 Dose: Not Given Pantoprazole Sodium (Protonix Ec Tab) 40 mg PO BID [facility] Last Admin: 03/30/18 10:56 Dose: 40 mg Potassium Chloride (K-Dur 20 Meq Er Tab) 20 meq PO DAILY [facility] Last Admin: 03/30/18 10:57 Dose: 20 meq - Labs Labs: 03/30/18 15:07 03/30/18 15:07 PT 12.3 SECONDS (9.7-12.2) H 03/21/18 06:21 INR 1.1 03/21/18 06:21 APTT 32 SECONDS (21-34) 03/21/18 06:21 Assessment and Plan - Assessment and Plan (Free Text) Assessment: 87 year old female admitted from the custodial with coffee ground emesis, seen and examined. Awake, responsive, no vomiting. Hgb >11 today, tolerating diet, wbc trending down today 19.7, afebrile. Discussed with DR Banda, plan to discharge back to the custodial today on iv zosy for 3 more days for UTI.
--- NOTE | 2018-03-30 16:39 | CP.PCM.PN ---
Subjective - Date & Time of Evaluation Date of Evaluation: 03/30/18 Time of Evaluation: 10:00 - Subjective Subjective: Patient was seen and examined this morning. Patient was sitting in bed comfortably eating breakfast. Patient is in no acute distress. Patient is awake and alert. Patient denies shortness of breath, chest pain, or cough. Patient reports no problems with breathing. Patient is afebrile. Patient has no acute complaints. Patient can be discharged home. 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 Cardiovascular: Patient denies chest pain, palpitations. Respiratory: Patient denies shortness of breath, cough Gastrointestinal: Patient denies nausea, vomiting, diarrhea. Neurological: Headache, AAO X 3, normal speech Physical Exam HEENT: Atraumatic, normocephalic, mucuous membranes moist Repiratory: Decreased breath sounds bilaterally. No wheezing or rhonchi. No use of accessory muscles. Cardiovascular: +S1/ S2, regular rate and rhythm GI: Normal bowel sounds in all 4 quadrants, no tenderness, no distention Extremities: No LE edema Neurological: Alert, awake, oriented X3 Assessment: 89 year old female patient with past medical history of Alzheimer, hypertension , hyperlipedemia, PEG tube, anemia, gallbladder disease, CKD; patient's exam showed no signs of dyspnea. 1. CHF Status: Chronic - Furosemide 20 mg IVP Daily - Patient is stable and can be discharged home 2. UTI Status: Acute - Continue antibiotics Objective - Vital Signs/Intake and Output Vital Signs (last 24 hours): Temp Pulse Resp BP Pulse Ox 98 F 79 20 114/80 94 L 03/30/18 15:00 03/30/18 15:00 03/30/18 15:00 03/30/18 15:00 03/30/18 15:00 Intake and Output: 03/30/18 03/30/18 06:59 18:59 Intake Total 500 Output Total 250 Balance 250 - Medications Medications: Current Medications Acetaminophen (Tylenol 325mg Tab) 650 mg PO Q4H PRN PRN Reason: Temp >100.4 Last Admin: 03/22/18 22:59 Dose: 650 mg Donepezil HCl (Aricept) 10 mg PO HS [facility] Last Admin: 03/29/18 21:26 Dose: 10 mg Furosemide (Lasix) 20 mg IVP DAILY [facility] Last Admin: 03/30/18 10:57 Dose: Not Given Piperacillin Sod/Tazobactam Sod (Zosyn 3.375 Gm Iv Premix) 3.375 gm in 50 mls @ 100 mls/hr IVPB Q6H [facility] PRN Reason: Protocol Last Admin: 03/30/18 10:56 Dose: 100 mls/hr Losartan Potassium (Cozaar) 50 mg PO DAILY [facility] Last Admin: 03/30/18 10:57 Dose: Not Given Magnesium Oxide (Mag-Ox) 400 mg PO DAILY [facility] Stop: 04/01/18 10:01 Last Admin: 03/30/18 10:56 Dose: 400 mg Metoprolol Tartrate (Lopressor) 50 mg PO BID [facility] Last Admin: 03/30/18 10:57 Dose: Not Given Pantoprazole Sodium (Protonix Ec Tab) 40 mg PO BID [facility] Last Admin: 03/30/18 10:56 Dose: 40 mg Potassium Chloride (K-Dur 20 Meq Er Tab) 20 meq PO DAILY [facility] Last Admin: 03/30/18 10:57 Dose: 20 meq - Labs Labs: 03/30/18 15:07 03/30/18 15:07 PT 12.3 SECONDS (9.7-12.2) H 03/21/18 06:21 INR 1.1 03/21/18 06:21 APTT 32 SECONDS (21-34) 03/21/18 06:21 Assessment and Plan (1) CHF (congestive heart failure) Status: Acute (2) UTI (urinary tract infection) Status: Acute
--- NOTE | 2018-03-30 23:29 | CP.PCM.DIS ---
Provider - Provider Date of Admission: 03/21/18 10:28 Attending physician: Thuan Banda MD Time Spent in preparation of Discharge (in minutes): 45 Diagnosis - Discharge Diagnosis (1) UTI (urinary tract infection) Status: Acute (2) Septicemia Status: Acute (3) Dehydration Status: Acute (4) Anemia Status: Acute (5) Gastrointestinal hemorrhage Status: Acute (6) Episodic atrial fibrillation Status: Acute Hospital Course - Lab Results Lab Results: Micro Results 03/21/18 08:45 Blood Blood Culture - Final NO GROWTH AFTER 5 DAYS 03/21/18 08:45 Blood Gram Stain - Final TEST NOT PERFORMED 03/21/18 08:15 Blood Blood Culture - Final NO GROWTH AFTER 5 DAYS 03/21/18 08:15 Blood Gram Stain - Final TEST NOT PERFORMED 03/21/18 10:18 Urine Urine Culture - Final Proteus Mirabilis Most Recent Lab Values WBC 19.7 K/uL (4.8-10.8) H 03/30/18 15:07 RBC 5.07 Mil/uL (3.80-5.20) 03/30/18 15:07 Hgb 11.1 g/dL (11.0-16.0) 03/30/18 15:07 Hct 34.8 % (34.0-47.0) 03/30/18 15:07 MCV 68.6 fL (81.0-99.0) L 03/30/18 15:07 MCH 21.9 pg (27.0-31.0) L 03/30/18 15:07 MCHC 32.0 g/dL (33.0-37.0) L 03/30/18 15:07 RDW 19.0 % (11.5-14.5) H 03/30/18 15:07 Plt Count 501 K/uL (130-400) H 03/30/18 15:07 MPV 8.2 fL (7.2-11.7) 03/30/18 15:07 Neut % (Auto) 82.5 % (50.0-75.0) H 03/30/18 15:07 Lymph % (Auto) 9.5 % (20.0-40.0) L 03/30/18 15:07 [place] % (Auto) 6.0 % (0.0-10.0) 03/30/18 15:07 Eos % (Auto) 1.5 % (0.0-4.0) 03/30/18 15:07 Baso % (Auto) 0.5 % (0.0-2.0) 03/30/18 15:07 Neut # (Auto) 16.2 K/uL (1.8-7.0) H 03/30/18 15:07 Lymph # (Auto) 1.9 K/uL (1.0-4.3) 03/30/18 15:07 [place] # (Auto) 1.2 K/uL (0.0-0.8) H 03/30/18 15:07 Eos # (Auto) 0.3 K/uL (0.0-0.7) 03/30/18 15:07 Baso # (Auto) 0.1 K/uL (0.0-0.2) 03/30/18 15:07 Neutrophils % (Manual) 82 % (50-75) H 03/30/18 15:07 Band Neutrophils % 3 % (0-2) H 03/30/18 15:07 Lymphocytes % (Manual) 9 % (20-40) L 03/30/18 15:07 Monocytes % (Manual) 4 % (0-10) 03/30/18 15:07 Eosinophils % (Manual) 1 % (0-4) 03/29/18 07:15 Basophils % (Manual) 1 % (0-2) 03/30/18 15:07 Metamyelocytes % 1 % (0-0) H 03/21/18 06:21 Myelocytes % 1 % (0-0) H 03/30/18 15:07 Toxic Granulation Present 03/21/18 06:21 Platelet Estimate Increased (NORMAL) H 03/30/18 15:07 Large Platelets Present 03/25/18 07:27 Polychromasia Slight 03/29/18 07:15 Hypochromasia (manual) Moderate 03/30/18 15:07 Poikilocytosis (manual Slight 03/26/18 07:28 Anisocytosis (manual) Moderate 03/30/18 15:07 Microcytosis (manual) Slight 03/30/18 15:07 Macrocytosis (manual) Slight 03/21/18 06:21 Target Cells Slight 03/27/18 11:05 Tear Drop Cells Slight 03/25/18 07:27 Ovalocytes Slight 03/29/18 07:15 Schistocytes Slight 03/22/18 11:12 PT 12.3 SECONDS (9.7-12.2) H 03/21/18 06:21 INR 1.1 03/21/18 06:21 APTT 32 SECONDS (21-34) 03/21/18 06:21 pO2 34 mm/Hg (30-55) 03/23/18 16:45 VBG pH 7.40 (7.32-7.43) 03/23/18 16:45 VBG pCO2 31 mmHg (40-60) L 03/23/18 16:45 VBG HCO3 20.6 mmol/L 03/23/18 16:45 VBG Total CO2 20.2 mmol/L (22-28) L 03/23/18 16:45 VBG O2 Sat (Calc) 67.8 % (40-65) H 03/23/18 16:45 VBG Base Excess -4.5 mmol/L (0.0-2.0) L 03/23/18 16:45 VBG Potassium 2.8 mmol/L (3.6-5.2) L 03/23/18 16:45 Sodium 142.0 mmol/l (132-148) 03/23/18 16:45 Chloride 111.0 mmol/L (98-107) H 03/23/18 16:45 Glucose 102 mg/dl (65-105) 03/23/18 16:45 Lactate 2.3 mmol/L (0.7-2.1) H 03/23/18 16:45 FiO2 21.0 % 03/21/18 12:15 Crit Value Called To Dr ibarra 03/21/18 09:05 Crit Value Called By Rafi richards cardiac care nurse 03/21/18 09:05 Crit Value Read Back Y 03/21/18 09:05 Blood Gas Notified Time 912 03/21/18 09:05 Sodium 138 mmol/L (132-148) 03/30/18 15:07 Potassium 4.2 mmol/L (3.6-5.2) 03/30/18 15:07 Chloride 99 mmol/L (98-107) 03/30/18 15:07 Carbon Dioxide 28 mmol/L (22-30) 03/30/18 15:07 Anion Gap 15 (10-20) 03/30/18 15:07 BUN 20 mg/dL (7-17) H 03/30/18 15:07 Creatinine 0.8 mg/dL (0.7-1.2) 03/30/18 15:07 Est GFR ( Amer) > 60 03/30/18 15:07 Est GFR (Non-Af Amer) > 60 03/30/18 15:07 Random Glucose 136 mg/dL (65-105) H 03/30/18 15:07 Calcium 8.4 mg/dl (8.6-10.4) L 03/30/18 15:07 Magnesium 2.1 mg/dL (1.6-2.3) 03/29/18 07:15 Total Bilirubin 1.6 mg/dL (0.2-1.3) H 03/25/18 07:27 AST 17 U/L (14-36) 03/25/18 07:27 ALT 23 U/L (9-52) 03/25/18 07:27 Alkaline Phosphatase 68 U/L (38-126) 03/25/18 07:27 Total Creatine Kinase < 20 U/L (30-135) L 03/24/18 05:30 CK-MB (Mass) 1.20 ng/mL (0.0-3.38) 03/24/18 05:30 Troponin I 0.1410 ng/mL (0.00-0.120) H* 03/24/18 05:30 Total Protein 5.8 g/dL (6.3-8.3) L 03/25/18 07:27 Albumin 2.8 g/dL (3.5-5.0) L D 03/25/18 07:27 Globulin 3.0 gm/dL (2.2-3.9) 03/25/18 07:27 Albumin/Globulin Ratio 1.0 (1.0-2.1) 03/25/18 07:27 TSH 3rd Generation 0.64 mIU/L (0.46-4.68) 03/25/18 07:27 Venous Blood Potassium 2.8 mmol/L (3.6-5.2) L 03/23/18 16:45 Urine Color [place]ova (YELLOW) 03/21/18 10:18 Urine Clarity Hazy (Clear) 03/21/18 10:18 Urine pH 5.0 (5.0-8.0) 03/21/18 10:18 Ur Specific [place] 1.017 (1.003-1.030) 03/21/18 10:18 Urine Protein 1+ mg/dL (NEGATIVE) H 03/21/18 10:18 Urine Glucose (UA) Normal mg/dL (Normal) 03/21/18 10:18 Urine Ketones Negative mg/dL (NEGATIVE) 03/21/18 10:18 Urine Blood 1+ (NEGATIVE) H 03/21/18 10:18 Urine Nitrate Negative (NEGATIVE) 03/21/18 10:18 Urine Bilirubin Negative (NEGATIVE) 03/21/18 10:18 Urine Urobilinogen Normal mg/dL (0.2-1.0) 03/21/18 10:18 Ur Leukocyte Esterase 3+ [place]/uL (Negative) H 03/21/18 10:18 Urine WBC (Auto) 362 /hpf (0-5) H 03/21/18 10:18 Urine RBC (Auto) 14 /hpf (0-3) H 03/21/18 10:18 Ur Squamous Epith Cells 1 /hpf (0-5) 03/21/18 10:18 Urine Bacteria Occ (<OCC) H 03/21/18 10:18 Blood Type O POSITIVE 03/22/18 16:35 Antibody Screen Negative 03/22/18 16:35 - Hospital Course Hospital Course: Patient was seen and examined this morning. Patient was sitting in bed comfortably eating breakfast. Patient is in no acute distress. Patient is awake and alert. Patient denies shortness of breath, chest pain, or cough. Patient reports no problems with breathing. Patient is afebrile. Patient has no acute complaints. Patient can be discharged to snf where her antibiotoc course will be contineus, repeat cbc , BMP in snf on friday can be discharged home after 4 days. Discharge Exam - Head Exam Head Exam: ATRAUMATIC, NORMOCEPHALIC - Eye Exam Eye Exam: EOMI, Normal appearance, PERRL Pupil Exam: NORMAL ACCOMODATION, PERRL - ENT Exam ENT Exam: Mucous Membranes Moist - Cardiovascular Exam Cardiovascular Exam: +S1, +S2 - GI/Abdominal Exam GI & Abdominal Exam: Normal Bowel Sounds Discharge Plan - Follow Up Plan Condition: STABLE Disposition: HOME/ ROUTINE Instructions: Sepsis in Adults, Atrial Fibrillation (DC), Heart Failure, Adult (DC), Dehydration, Adult (DC), Urinary Tract Infection in Women (DC) Additional Instructions: Discharge with heplock CBC, BMP on Friday Continue IV Zosyn for 3 more days
== END 2018-03-30 18:42 | disposition home or self-care (01) | DRG 871 ==
LOC: C.ER 05:24 → C.9E 10:28 → C.6T 14:07
PROVIDERS: ADMIT Internal Medicine; ATTEND Internal Medicine
PROC: 30233N1 Transfusion of Nonautologous Red Blood Cells into Peripheral Vein, Percutaneous Approach (ICD-10-PCS; 2018-03-23)
PROC: 0DB68ZX Excision of Stomach, Via Natural or Artificial Opening Endoscopic, Diagnostic (ICD-10-PCS; principal; 2018-03-23 09:35)
DX: A41.9 Sepsis, unspecified organism (principal); K25.4 Chronic or unspecified gastric ulcer with hemorrhage; R65.21 Severe sepsis with septic shock; D62 Acute posthemorrhagic anemia; D68.9 Coagulation defect, unspecified; E46 Unspecified protein-calorie malnutrition; E87.2 Acidosis; I13.0 Hypertensive heart and chronic kidney disease with heart failure and stage 1 through stage 4 chronic kidney disease, or unspecified chronic kidney disease; J98.11 Atelectasis; N39.0 Urinary tract infection, site not specified; D69.6 Thrombocytopenia, unspecified; D73.4 Cyst of spleen; E27.8 Other specified disorders of adrenal gland; E77.8 Other disorders of glycoprotein metabolism; E78.5 Hyperlipidemia, unspecified; E83.42 Hypomagnesemia; E83.51 Hypocalcemia; E86.0 Dehydration; E87.6 Hypokalemia; G30.9 Alzheimer's disease, unspecified; F02.80 Dementia in other diseases classified elsewhere, unspecified severity, without behavioral disturbance, psychotic disturbance, mood disturbance, and anxiety; I50.9 Heart failure, unspecified; K29.00 Acute gastritis without bleeding; K29.60 Other gastritis without bleeding; K20.9 Esophagitis, unspecified; H91.90 Unspecified hearing loss, unspecified ear; I48.0 Paroxysmal atrial fibrillation; K43.5 Parastomal hernia without obstruction or gangrene; K44.9 Diaphragmatic hernia without obstruction or gangrene; K57.90 Diverticulosis of intestine, part unspecified, without perforation or abscess without bleeding; N20.0 Calculus of kidney; N18.9 Chronic kidney disease, unspecified; K80.20 Calculus of gallbladder without cholecystitis without obstruction; Z93.3 Colostomy status